=== PATIENT | male | born 1960 | race Caucasian/White ===

== ENCOUNTER → 2016-06-18 | Outpatient (CLI) | payer OTHER ==
[~2016-06-18] MED LIST: ACET-93 PO; ALLO100T PO; ALPR.25T PO; ALPR1T PO; ALPR1TAB7 PO; ALPR2TAB2 PO; BACL10TA PO; CLIN300C3 PO; CLOT15CR4 TP; DEPLIN; DOXY100C2 PO; DOXY100T2 PO; GADOBUTROL 15 MMOL/15 ML (GADAVIST) VIAL IV ONE; HYDR-3720 PO; HYDR-3812 PO; HYDR1TAB PO; KETO-22 PO; LISI-556 PO; LSNP20T PO; MELOXICAM PO; NAPR-243 PO; NAPR220T66 PO; ONDA8TAB13 PO; ORPH100T PO; OXYC-197 PO; PRD20T PO; PREG100C PO; PREG150C PO; ROPI1TAB2 PO; TEMA15CA PO; TIZA2TAB3 PO; TIZA4CAP6 PO; TRAM50TA2 PO; TRAZ-28 PO; ZLP10T; ZLP10T PO; [UNRECOGNIZED DRUG - OTHER] PO
[2016-06-18 13:16] LABS: BLOOD UREA NITROGEN 6 MG/DL (7-18); BUN/CREATININE RATIO 6; CREATININE SERUM 1.05 MG/DL (0.60-1.30); GFR ESTIMATED > 60
--- NOTE | 2016-06-18 15:30 | Diagnostic Imaging Report ---
PROCEDURE: MRI lumbar spine with and without contrast. TECHNIQUE: A multiplanar/multisequence MRI of the lumbar spine was performed with and without contrast. INDICATION: Back pain. COMPARISON: 10/27/2012. FINDINGS: Since the previous exam, posterior and interbody fusion at L2-L3 has been performed with bipedicular screws. The alignment across the fusion is anatomic and the previous severe central canal stenosis has resolved. The left neural foramen is widely patent. The right appears mildly narrowed but much improved from the prior exam. There is a broad-based posterior right lateral disc protrusion, seen best in the axial images. Disc material extends about 2.6 mm beyond the endplate margin but again results in only mild canal stenosis and did not appreciably impinge upon or contact the exiting L2 nerve. There is no fluid collection. Above the level of fusion, the L1-L2 level shows disc desiccation, loss of disc stature, mild endplate osteophytes, and circumferential disc bulge with mild canal stenosis and no substantial foraminal narrowing. This level is stable. L3-L4: Thickening of the ligamentum flavum and facet arthrosis show mild progression from the prior exam. Mild circumferential disc bulge and endplate osteophytes are noted. The constellation of findings in conjunction with dorsal epidural fat result in a mild to moderate degree of canal narrowing, increased from the prior exam, with mild to moderate left and mild right neural foraminal narrowing increased. L4-L5: Buckled thickened ligamentum flavum, facet arthrosis, bulging disc material, and endplate osteophytes result in severe central canal stenosis, mildly increased from the prior exam, with moderate right and mild left neuroforaminal stenoses, slightly increased. L5-S1: Bulging disc material and endplate osteophytes do not result in a significant degree of foraminal narrowing; however, disc material impinges upon the left greater than right descending S1 nerve roots and there is moderate severity central canal stenosis. IMPRESSION: 1. There are significant favorable changes across the post operative L2-L3 level showing resolution of the previous severe stenosis of the central canal and marked improvements in right neuroforaminal stenosis. No fluid collection or adverse development. Anatomic alignment across the fusion. 2. Multilevel spondylosis, facet arthrosis, and ligamentum flavum thickening show mild progression from the prior exam with multilevel stenoses of canal, neural foramina, and lateral recesses of varying degrees of severity as listed level by level above. 3. No abnormal enhancement. No findings to suggest lumbar involvement by fracture, infection, or neoplasm. Dictated by: Dictated on workstation # [id number]
== END ==
LOC: RAD 12:39
PROVIDERS: ATTEND Physician Assistant
DX: M48.07 Spinal stenosis, lumbosacral region (principal); M47.817 Spondylosis without myelopathy or radiculopathy, lumbosacral region
CPT/HCPCS: 36415; 72158; 82565; 84520

== ENCOUNTER 2016-07-15 02:22 | Emergency (ER) | payer OTHER, BC ==
[~2016-07-15] VITALS: Ht 198.1 cm; Wt 104.3 kg
[~2016-07-15 02:22] MED LIST changes: -GADOBUTROL 15 MMOL/15 ML (GADAVIST) VIAL IV ONE
[2016-07-15] MEDS ORDERED: fentaNYL INJECTION 100 MCG/2 ML AMP IM STA (02:35)
--- NOTE | 2016-07-15 02:35 | ED Fall/Injury ---
General Chief Complaint: Trauma-Non Activation Stated Complaint: FALL HEAD INJ Source: patient, family Exam Limitations: no limitations History of Present Illness Time seen by provider: 02:28 Initial Comments Patient presents acutely by private conveyance after a fall in his bathroom or getting up to go to the bathroom. He struck his head against the vanity on the right occiput and landed on his right knee laterally where he now has an abrasion. He feels his right knee is a little swollen and painful and difficult to walk on. He denies loss of consciousness or time and remembers the whole fall. He denies dysuria or burning. He states that he has had multiple falls and has multiple abrasions and contusions in various stages of healing on his knees and upper extremities consistent with his story. He states his doctor, Dr. FIELDS, was working him up outpatient and concerned about too much water on the brain. States he was postictal have a CT scan set up outpatient. No fever , rash, malaise, nausea, vomiting. He is having pain however and uses chronic opiates hydrocodone for his right knee pain. Allergies and Home Medications Allergies Coded Allergies: Iodinated Contrast Media - Oral and (Verified Allergy, Unknown, 02/10/07) Uncoded Allergies: IV DYE (Allergy, Mild, 02/07/07) Home Medications Allopurinol 100 Mg Tablet, 100 MG PO HS, (Reported) Alprazolam 1 Mg Tablet, 1 MG PO TID, (Reported) Lisinopril 5 Mg Tablet, 5 MG PO DAILY, (Reported) Oxycodone HCl/Acetaminophen 1 Each Tablet, 1 EACH PO Q4H, #60 Prescribed by: MED PORTER on 12/06/151915 Pregabalin 100 Mg Capsule, 100 MG PO HS, (Reported) Ropinirole HCl 1 Mg Tablet, 1 MG PO HS PRN for PAIN, (Reported) Temazepam 15 Mg Capsule, 15 MG PO HS, (Reported) Tizanidine HCl 2 Mg Tablet, 2 MG PO TID, (Reported) Tramadol HCl 50 Mg Tablet, 100 MG PO TID, (Reported) Trazodone HCl 50 Mg Tablet, 50 MG PO HS, (Reported) Constitutional: No chills, No diaphoresis, No dizziness, No fever Eyes: Denies Blindness, Denies Blurred Vision, Denies Drainage Ears, Nose, Mouth, Throat: denies ear pain, denies ear discharge Respiratory: No cough, No short of breath Cardiovascular: No chest pain, No edema Gastrointestinal: No abdominal pain, No constipation, No diarrhea Genitourinary: No dysuria, No frequency Musculoskeletal: see HPI, No back pain, joint pain Skin: lesions (abrasion head and right knee), No pruritus, No rash Past Bosivkw-Zmrmep-Ztelwy Hx Patient Social History Alcohol Use: Regular Use Recreational Drug Use: No Type Used: Electronic/Vapor Recent Foreign Travel: No Contact w/Someone Who Travel: No Recent Hopitalizations: No Immunizations Up To Date Tetanus Booster (TDap): Less than 5yrs Date of Pneumonia Vaccine: Jan 30, 2012 Date of Influenza Vaccine: Dec 29, 2014 Seasonal Allergies Seasonal Allergies: No Surgeries HX Surgeries: Yes (PARTIAL Thyroidectomy, Torn meniscus left side, BACK SURGERY X2, ) Surgeries: Orthopedic, Thyroidectomy Respiratory Hx Respiratory Disorders: Yes Respiratory Disorders: Pneumonia Cardiovascular Hx Cardiac Disorders: Yes Cardiac Disorders: Hypertension Neurological Hx Neurological Disorders: Yes ("possible pressure on brain causing dizziness") Reproductive System Hx Reproductive Disorders: No Sexually Transmitted Disease: No HIV/AIDS: No Genitourinary Hx Genitourinary Disorders: No Gastrointestinal Hx Gastrointestinal Disorders: No Musculoskeletal Hx Musculoskeletal Disorders: Yes (SCIATICA, RESTLESS LEG SYNDROME, OSTEOARTHRITIS) Musculoskeletal Disorders: Degenerate Disk Disease, Arthritis, Chronic Back Pain, Gout Endocrine Hx Endocrine Disorders: No HEENT HX ENT Disorders: Yes (GLASSES) Loss of Vision: Bilateral Hearing Impairment: Denies Cancer Hx Cancer: No Psychosocial Hx Psychiatric Problems: Yes Behavioral Health Disorders: Sleep Difficulties, Anxiety Integumentary HX Skin/Integumentary Disorder: No Blood Transfusions Hx Blood Disorders: No Adverse Reaction to a Blood Tr: No (N/A) Family Medical History Significant Family History: No Pertinent Family Hx Family Medial History: CANCER 19 FATHER 19 MOTHER Physical Exam Vital Signs Vital Sign - Last 12Hours 07/15/16 02:26 Temp 99.0 Pulse 99 Resp 18 B/P (MAP) 116/70 Pulse Ox 96 O2 Delivery Room Air Capillary Refill : General Appearance: WD/WN, no apparent distress HEENT: PERRL/EOMI, normal ENT inspection, other (mild abrasion to right occiput ) Neck: non-tender, normal inspection Cardiovascular: normal peripheral pulses, regular rate, rhythm, no edema Respiratory: chest non-tender, lungs clear Peripheral Pulses: 3+ Dorsalis Pedis (R), 3+ Left Dors-Pedis (L), 3+ Radial Pulses (R), 3+ Radial Pulses (L) Gastrointestinal: normal bowel sounds, non tender, soft Back: normal inspection, no CVA tenderness, no vertebral tenderness Extremities: normal range of motion, normal capillary refill, other (right knee abrasion, superficial, hemostatic with mild effusion compared to left. 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 as tested, no motor/sensory deficits, alert, oriented x 3 Skin: normal color, warm/dry Lymphatic: no adenopathy Progress/Results/Core Measures Results/Orders My Orders Orders - SHEILA GRAJEDA Ct Head Wo (07/15/16 02:35) Knee, Right, 3 Views (07/15/16 02:35) Fentanyl Injection (Sublimaze Injection (07/15/16 02:35) Vital Signs/I&O Vital Sign - Last 12Hours 07/15/16 07/15/16 02:26 03:56 Temp 99.0 Pulse 99 78 Resp 18 18 B/P (MAP) 116/70 Pulse Ox 96 96 O2 Delivery Room Air Progress Note : Time: 03:45 Progress Note Patient presents with a fall and although he does not have any acute neurologic symptoms he's had a history of falls and the family is highly concerned about normal pressure hydrocephalus and insistent upon a CT scan tonight. CT scan was unremarkable on review by stat read myself. He is having no dysuria so a urinalysis will be necessary or helpful. As he has no acute injuries that need to address tonight we'll allow him to go home. Diagnostic Imaging Diagonstic Imaging: Xray Plain Films/CT/US/NM/MRI: knee (Right) Comments No acute process noted. Reviewed: Reviewed [place] Study, Reviewed by Me Diagonstic Imaging: CT Plain Films/CT/US/NM/MRI: head Comments No acute intracranial process noted. Read no acute intracranial hemorrhage or calvarial fracture, incidental findings of chronic and involutional changes noted. Reviewed: Reviewed [place] Study, Reviewed by Me Departure Impression Impression: Primary Impression: Fall Qualified Codes: W19.XXXA - Unspecified fall, initial encounter Disposition: HOME, SELF-CARE Condition: Stable Departure-Patient Inst. Decision time for Depature: 03:45 Referrals: IBRAHIMA FIELDS DO (PCP/Family) Primary Care Physician Patient Instructions: Concussion, Adult (DC) Add. Discharge Instructions: After a fall and blow to the head the patient should be observed over the next few days for any concerning features of a concussion which would include things like nausea, vomiting, disorientation, personality changes. If these occur or there is concern for concussion bring these concerns up to your primary care physician or if they become acutely worrisome bring him back to the ER. Be careful using opiates as they increase your risk of falls. Drink plenty of fluids. Use a well lit corridor at night to get up to the bathroom. Follow-up with her primary care physician in the next week or 2. All discharge instructions reviewed with patient and/or family. Voiced understanding. Copy Copies To 1: IBRAHIMA FIELDS TITUS J Jul 15, 2016 02:35
[2016-07-15 03:56] VITALS: BP 109/68
--- NOTE | 2016-07-15 06:54 | Diagnostic Imaging Report ---
PROCEDURE: CT head without contrast. TECHNIQUE: Multiple contiguous axial images were obtained through the brain without the use of intravenous contrast. INDICATION: Fall, right-sided head pain. No priors. FINDINGS: There is no hemorrhage, hydrocephalus, edema, mass, mass effect, abnormal extra-axial fluid collection or calvarial fracture deformity. No hemo-sinus. No evidence for focal or generalized edema. IMPRESSION: No hemorrhage fracture deformity or acute/posttraumatic sequelae identified. Agree with preliminary. Dictated by: Dictated on workstation # [id number]
--- NOTE | 2016-07-15 07:39 | Diagnostic Imaging Report ---
INDICATION: Pain. Study compared 12/15/2015. FINDINGS: Soft tissue swelling anteriorly in the suprapatellar knee joint effusion present. Prior soft tissue caryn have been removed. Some soft tissue ossifications about the knee medially probably ossifications along the MCL ligament suggestive of prior ligamentous injury. No lucencies adjacent to the hardware. No osseous or hardware fracture. IMPRESSION: Swelling and joint effusion with probable calcifications of the MCL owing to its prior injury. No acute bony abnormality. Dictated by: Dictated on workstation # [id number]
== END 2016-07-15 03:56 | disposition home or self-care (01) ==
LOC: EDUNIT# 02:22 → ER 02:25
DX: S80.211A Abrasion, right knee, initial encounter (principal); S09.90XA Unspecified injury of head, initial encounter; M25.461 Effusion, right knee; R29.6 Repeated falls; Z79.899 Other long term (current) drug therapy; W18.09XA Striking against other object with subsequent fall, initial encounter; Y92.003 Bedroom of unspecified non-institutional (private) residence as the place of occurrence of the external cause; Y99.8 Other external cause status
CPT/HCPCS: 70450; 73562; 96372; 99282

== ENCOUNTER → 2016-09-30 | Outpatient (CLI) | payer OTHER, BC ==
--- NOTE | 2016-09-30 11:39 | Diagnostic Imaging Report ---
PROCEDURE: US Thyroid. TECHNIQUE: Multiple real-time grayscale images were obtained of the thyroid in various projections. INDICATION: Abnormal thyroid function tests, previous right thyroidectomy. COMPARISON: None. DISCUSSION: The right thyroid gland is surgically absent. No abnormal mass or fluid within the right thyroidectomy bed. Simple appearing cysts within the left thyroid gland measures 5 mm, statistically benign. The left thyroid gland is mildly enlarged measuring 5.0 x 2.1 x 2.3 cm. No solid nodule is identified on the left. No abnormal adjacent lymph nodes identified. IMPRESSION: 1. Status post right thyroidectomy. 2. Mild enlargement of the left thyroid gland. No suspicious solid nodule identified. Dictated by: Dictated on workstation # [id number]
== END ==
LOC: RAD 10:53
PROVIDERS: ATTEND Family Medicine
DX: E89.0 Postprocedural hypothyroidism (principal); E07.89 Other specified disorders of thyroid; R94.6 Abnormal results of thyroid function studies
CPT/HCPCS: 76536

== ENCOUNTER → 2017-05-09 | Outpatient (CLI) | payer OTHER, BC ==
[~2017-05-09] MED LIST changes: +ACHD5005 PO; -HYDR-3812 PO
--- NOTE | 2017-05-09 14:27 | Diagnostic Imaging Report ---
INDICATION: Chest congestion. PA and lateral chest obtained at 01:02 p.m. and compared to 12/15/2015. Heart is normal in size. Mediastinal silhouette is unremarkable. The lungs show no focal infiltrate. There is no pneumothorax or pleural fluid. There is a stable calcified granuloma in the left mid lung. IMPRESSION: Stable calcified granuloma in left mid lung. No focal infiltrate, pneumothorax, or pleural fluid. Dictated by: Dictated on workstation # [id number]
== END ==
LOC: RAD 12:32
PROVIDERS: ATTEND Family Medicine
DX: J84.10 Pulmonary fibrosis, unspecified (principal)
CPT/HCPCS: 71046

== ENCOUNTER → 2017-10-23 | Outpatient (RCR) | payer OTHER, BC ==
[~2017-10-23] MED LIST changes: +TRAZ-189 PO; -TRAZ-28 PO
== END | disposition home or self-care (01) ==
PROVIDERS: ATTEND Physician Assistant
DX: M50.00 Cervical disc disorder with myelopathy, unspecified cervical region (principal)

== ENCOUNTER 2017-12-25 14:10 | Outpatient (RCR) | payer OTHER, BC ==
[~2017-12-25 14:10] MED LIST changes: -OXYC-197 PO; +OXYC1TAB87 PO
== END 2018-01-01 15:18 | disposition home or self-care (01) ==
PROVIDERS: ATTEND Physician Assistant
DX: M50.00 Cervical disc disorder with myelopathy, unspecified cervical region (principal)

== ENCOUNTER 2018-01-28 13:45 | Outpatient (RCR) | payer OTHER, BC | END 2018-02-25 09:44 | disposition home or self-care (01) | PROVIDERS: ATTEND Physician Assistant | DX: M50.00 Cervical disc disorder with myelopathy, unspecified cervical region (principal) ==

== ENCOUNTER → 2018-07-09 | Outpatient (CLI) | payer MEDICARE, OTHER ==
--- NOTE | 2018-07-09 17:09 | Diagnostic Imaging Report ---
INDICATION: Claudication. FINDINGS: Ankle-brachial index on the right in the posterior tibial artery is 1.14 and in the dorsalis pedis artery is 1.17. Ankle-brachial index on the left in the posterior tibial artery is 1.13 and in the dorsalis pedis is 1.05. IMPRESSION: Normal bilateral ankle-brachial indices. Dictated by: Dictated on workstation # [id number]
== END ==
LOC: RAD 09:00
PROVIDERS: ATTEND Neurological Surgery
DX: I73.9 Peripheral vascular disease, unspecified (principal)
CPT/HCPCS: 93922

== ENCOUNTER → 2018-10-02 | Outpatient (CLI) | payer MEDICARE, OTHER ==
[~2018-10-02] MED LIST changes: -TRAZ-189 PO; +TRAZ-222 PO
--- NOTE | 2018-10-02 15:06 | Diagnostic Imaging Report ---
PROCEDURE: US carotid duplex, bilateral. TECHNIQUE: Multiple real-time grayscale images were obtained over the carotid arteries in various projections, bilaterally. Additional spectral analysis and color Doppler duplex images were also obtained. INDICATION: Dizziness and fainting There is some atherosclerotic plaque present at the carotid bifurcations. There is no alteration of the waveforms or velocities. Both vertebral arteries are patent with antegrade flow. Impression: There's mild atherosclerotic change in both carotid bifurcations but no hemodynamically significant stenosis. Parameters based on the consensus panel Wilson-Scale and Doppler ultrasound criteria published January 2003, Radiology, Volume 229. DOPPLER (peak systolic velocity M/S Right Left CCA 1.18 1.21 ICA Proximal 0.77 0.90 ICA Mid .83 .86 ICA Distal .83 1.0 RATIO 0.7 0.8 ECA .96 1.26 VERT 0.41 0.46 Dictated by: Dictated on workstation # [id number]
== END ==
LOC: RAD 12:35
PROVIDERS: ATTEND Nurse Practitioner Family
DX: I65.23 Occlusion and stenosis of bilateral carotid arteries (principal)
CPT/HCPCS: 93880

== ENCOUNTER → 2018-10-13 | Outpatient (CLI) | payer MEDICARE, OTHER ==
[~2018-10-13] MED LIST changes: -TIZA2TAB3 PO; +TIZA2TAB4 PO
[2018-10-13 12:23] LABS: ALBUMIN 4.5 GM/DL (3.2-4.5); BUN/CREATININE RATIO 14; CALCIUM 10.2 MG/DL (8.5-10.1); CARBON DIOXIDE 25 MMOL/L (21-32); CHLORIDE 101 MMOL/L (98-107); CREATININE SERUM 1.18 MG/DL (0.60-1.30); GFR ESTIMATED > 60; GLUCOSE 97 MG/DL (70-105); PHOSPHORUS 2.3 MG/DL (2.3-4.7); POTASSIUM 3.5 MMOL/L (3.6-5.0); SODIUM 138 MMOL/L (135-145)
== END ==
LOC: RAD 11:47
PROVIDERS: ATTEND Nurse Practitioner
DX: I70.1 Atherosclerosis of renal artery (principal)
CPT/HCPCS: 36415; 80069

== ENCOUNTER 2018-10-14 08:06 | Outpatient (RCR) | payer MEDICARE, OTHER ==
[2018-10-14] MEDS ORDERED: IOHEXOL 350 MG/ML 100 ML (OMNIPAQUE 350) VIAL IV ONE (08:45)
[2018-10-14] MEDS ORDERED: HOLD METFORMIN - RECEIVED CONTRAST 20 ML VIAL IV SCH (08:45)
[2018-10-14] MEDS ORDERED: NS 100 ML (IVPB) BAG IV ONE (08:45)
--- NOTE | 2018-10-14 11:10 | Diagnostic Imaging Report ---
PROCEDURE: CT angiography of the head and CT angiography of the neck with and without contrast. TECHNIQUE: Contiguous noncontrast images were obtained from the skull base through the vertex. After intravenous contrast administration, helical CT angiography of the neck was performed. 75 mL of Omnipaque 350 was administered via IV. Source data was reformatted into multiple MIP projections. Delayed post contrast acquisition was also obtained. Auto Exposure Controls were utilized during the CT exam to meet ALARA standards for radiation dose reduction. INDICATION: Lightheadedness. COMPARISON: CT head on 07/15/2016. FINDINGS: CTA Neck: The visualized portions of the aortic arch demonstrate no evidence of aneurysm or dissection. There is conventional branching pattern of the great vessels of the aorta. The brachiocephalic artery is normal in course and caliber. The right and left common carotid origins are unremarkable. The origin of the left subclavian artery is patent. The common carotid arteries and internal carotid arteries demonstrate a tortuous course. There is calcified atherosclerotic plaque in the bilateral carotid bulbs and proximal internal carotid arteries without flow-limiting stenosis. No evidence of dissection in the carotid systems. The external carotid arteries are patent and unremarkable. The vertebral arteries are codominant. The origin of the right vertebral artery is seen and is unremarkable. The origin of the left vertebral artery is seen and is unremarkable. There is no focal stenosis seen within the neck. There is no dissection. The vertebral arteries are well visualized to up to the level of the basilar artery. The osseous structures of the cervical spine are unremarkable. Anterior fusion is seen at C5-C6. Included views through the lung apices demonstrate no focal consolidation. CTA brain: The terminal ICAs are unremarkable. No stenosis is seen in the bilateral anterior, middle, and posterior cerebral arteries. No evidence of aneurysm the [place]. In the posterior circulation, both of the vertebral arteries demonstrate normal opacification. The vertebral arteries are codominant. Both the right and left PICA arteries are identified. The basilar artery is normal in course and caliber. The terminal branch vessels including the superior cerebellar arteries unremarkable. IMPRESSION: 1. No stenosis or aneurysm in the [place]. 2. No stenosis or dissection the bilateral carotid and vertebral arteries. Dictated by: Dictated on workstation # [id number]
[2018-12-31] MEDS ORDERED: CELE-63 PO ×2 (09:01)
[2018-12-31] MEDS ORDERED: PROP80CA4 PO ×2 (09:01)
[2018-12-31] MEDS ORDERED: PREG150C PO ×2 (09:01)
[2018-12-31] MEDS ORDERED: AMIT75TA2 PO ×2 (09:01)
[2018-12-31] MEDS ORDERED: DULO60CA59 PO ×2 (09:01)
[2018-12-31] MEDS ORDERED: OXYC-471 PO ×2 (09:01)
[2018-12-31] MEDS ORDERED: LEVO50TA6 PO ×2 (09:01)
[2018-12-31] MEDS ORDERED: ONDA4TAB10 PO ×2 (09:01)
[2018-12-31] MEDS ORDERED: DOCU-143 PO ×2 (09:05)
[2018-12-31] MEDS ORDERED: CHOL10007 PO ×2 (09:05)
[2018-12-31] MEDS ORDERED: CYAN-41 PO ×2 (09:05)
[2019-01-01] MEDS ORDERED: ENOX40DI8 SC ×2 (09:37)
[2019-01-06] MEDS ORDERED: APIX2.5T PO (11:46)
[2019-01-06] MEDS ORDERED: OXYC-471 PO (11:46)
[2019-01-06] MEDS ORDERED: PROP20TA5 PO (11:46)
== END 2019-01-12 | disposition home or self-care (01) ==
LOC: RAD 08:06
PROVIDERS: ATTEND Nurse Practitioner
DX: I70.1 Atherosclerosis of renal artery (principal); R55 Syncope and collapse; R42 Dizziness and giddiness
CPT/HCPCS: 70496; 70498; 93225; 93226

== ENCOUNTER 2018-12-04 12:27 | Outpatient (CLI) | payer MEDICARE, OTHER ==
[~2018-12-04] VITALS: Ht 198.1 cm; Wt 111.3 kg
[2018-12-04] MEDS ORDERED: ONDANSETRON 4 MG/2 ML (SDV) Z0FRAN IV ONE (12:45)
[2018-12-04] MEDS ORDERED: NS IV 1000 ML 1,000 ML IV NR (12:45)
[2018-12-04] MEDS ORDERED: cefTRIAXone 1,000 MG/SWFI 10 ML IV PUSH IV ONE ×2 (12:45)
[2018-12-04 13:55] VITALS: BP 131/77
== END 2018-12-04 13:55 | disposition home or self-care (01) ==
LOC: SDC 12:27
PROVIDERS: ATTEND Nurse Practitioner Family
DX: E86.0 Dehydration (principal)
CPT/HCPCS: 96374; 96375

== ENCOUNTER 2018-12-31 02:18 | Observation (INO) | payer MEDICARE, OTHER ==
[2018-12-31] VITALS (18 sets, daily range): BP systolic 97–140; BP diastolic 43–80
[~2018-12-31] VITALS: Ht 197 cm; Wt 129.0 kg
[2018-12-31] MEDS ORDERED: NS IV 1000 ML 1,000 ML ONE (02:27)
[2018-12-31 02:39] LABS: BASOPHILS % (AUTO) 0 % (0-10); EOSINOPHILS # (AUTO) 0.4 10^3/uL (0.0-0.3); EOSINOPHILS % (AUTO) 3 % (0-10); HEMATOCRIT 39 % (40-54); HEMOGLOBIN 12.9 G/DL (13.3-17.7); LYMPHOCYTES # (AUTO) 3.5 X 10^3 (1.0-4.0); LYMPHOCYTES % (AUTO) 30 % (12-44); MEAN CORPUSCULAR HEMOGLOBIN 32 PG (25-34); MEAN CORPUSCULAR HGB CONC 33 G/DL (32-36); MEAN CORPUSCULAR VOLUME 97 FL (80-99); MONOCYTES # (AUTO) 1.4 X 10^3 (0.0-1.0); MONOCYTES % (AUTO) 12 % (0-12); NEUTROPHILS # (AUTO) 6.4 X 10^3 (1.8-7.8); NEUTROPHILS % (AUTO) 54 % (42-75); PLATELET COUNT 314 10^3/uL (130-400); RED CELL DISTRIBUTION WIDTH 12.8 % (10.0-14.5); WHITE BLOOD COUNT 11.7 10^3/uL (4.3-11.0)
[2018-12-31 02:53] LABS: ALANINE AMINOTRANSFERASE 23 U/L (0-55); ALBUMIN 3.7 GM/DL (3.2-4.5); ALKALINE PHOSPHATASE 135 U/L (40-136); BILIRUBIN,TOTAL 0.2 MG/DL (0.1-1.0); BUN/CREATININE RATIO 10; CALCIUM 9.3 MG/DL (8.5-10.1); CARBON DIOXIDE 24 MMOL/L (21-32); CHLORIDE 104 MMOL/L (98-107); CREATININE SERUM 1.05 MG/DL (0.60-1.30); GFR ESTIMATED > 60; GLUCOSE 113 MG/DL (70-105); MAGNESIUM 2.1 MG/DL (1.6-2.4); POTASSIUM 4.2 MMOL/L (3.6-5.0); SODIUM 139 MMOL/L (135-145); TOTAL PROTEIN 6.6 GM/DL (6.4-8.2)
[2018-12-31 03:06] LABS: BACTERIA,URINE TRACE /HPF; BILIRUBIN,URINE NEGATIVE (NEGATIVE); CLARITY,URINE CLEAR; COLOR,URINE YELLOW; GLUCOSE, URINE (UA) NEGATIVE (NEGATIVE); KETONES,URINE NEGATIVE (NEGATIVE); LEUKOCYTE ESTERASE ,URINE NEGATIVE (NEGATIVE); NITRITE,URINE NEGATIVE (NEGATIVE); PH,URINE 7 (5-9); PROTEIN,URINE NEGATIVE (NEGATIVE); UROBILINOGEN,URINE NORMAL (NORMAL)
[2018-12-31 03:07] LABS: HYALINE CASTS, URINE 0-2 /LPF
[2018-12-31 03:51] LABS: FREE T4 (FREE THYROXINE) 0.89 NG/DL (0.70-1.48)
[2018-12-31] MEDS ORDERED: NS IV 1000 ML 1,000 ML IV SCH (03:53)
[2018-12-31] MEDS ORDERED: LACTATED RINGERS 1,000 ML IV ONE ×2 (04:52→05:46)
--- NOTE | 2018-12-31 05:28 | ED General ---
General Chief Complaint: Trauma-Non Activation Stated Complaint: FALL, ANKLE DEFORMITY Nursing Triage Note: SEE TRAUMA TRIAGE NOTE. Nursing Sepsis Screen: No Definite Risk Source of Information: Patient, EMS, Family, Old Records Exam Limitations: No Limitations History of Present Illness Date Seen by Provider: Dec 31, 2018 Time Seen by Provider: 02:20 Initial Comments This 58-year-old gentleman presents to the emergency room via EMS after having a fall in his home. He got up in the night to go to the restroom. He then fell. He believes he had a syncopal episode. He does not particularly recall any prodrome prior to that. He states he does have a history of syncope and labile blood pressures. He states he has had a workup by Dr. Cavanaugh for this in the past and that he is being referred to a local boat motor mechanic, possibly Dr. Gresham. Patient has a painful right ankle with disfigurement. EMS applied a splint and gave fentanyl 100 g. Systolic blood pressure was in the 120s for EMS but he is hypotensive on arrival. He denies any fever or feeling ill recently, although he did require some recent IV fluids and completed a course of doxycycline empirically for suspected infection of unknown source. Patient denies any misuse of his medications. He denies any drug or alcohol use. He is afebrile. Speech was slurred upon arrival but EMS reports there was no slurred speech prior to fentanyl. Allergies and Home Medications Allergies Coded Allergies: Iodinated Contrast Media (Verified Allergy, Unknown, 02/10/07) Uncoded Allergies: IV DYE (Allergy, Mild, 02/07/07) Home Medications Allopurinol 100 Mg Tablet, 100 MG PO HS, (Reported) Alprazolam 1 Mg Tablet, 1 MG PO TID, (Reported) Lisinopril 5 Mg Tablet, 5 MG PO DAILY, (Reported) Oxycodone HCl/Acetaminophen 1 Each Tablet, 1-2 EACH PO Q4H PRN for PAIN-MODERATE TO SEVERE Prescribed by: SALENA PACHECO on 02/03/17 1014 Prednisone 20 Mg Tab, 20 MG PO BID Prescribed by: SALENA PACHECO on 02/03/17 1014 Pregabalin 100 Mg Capsule, 100 MG PO HS, (Reported) Ropinirole HCl 1 Mg Tablet, 1 MG PO HS PRN for PAIN, (Reported) Temazepam 15 Mg Capsule, 15 MG PO HS, (Reported) Tizanidine HCl 2 Mg Tablet, 2 MG PO TID, (Reported) Tramadol HCl 50 Mg Tablet, 100 MG PO TID, (Reported) Trazodone HCl 50 Mg Tablet, 50 MG PO HS, (Reported) Patient Home Medication List Home Medication List Reviewed: Yes Review of Systems Review of Systems Constitutional: no symptoms reported EENTM: no symptoms reported Respiratory: no symptoms reported Cardiovascular: see HPI Gastrointestinal: no symptoms reported Genitourinary: no symptoms reported Musculoskeletal: see HPI Skin: no symptoms reported Psychiatric/Neurological: See HPI Hematologic/Lymphatic: No Symptoms Reported Immunological/Allergic: no symptoms reported Past Nufczdm-Gkuhvb-Ubfqrp Hx Past Med/Social Hx: Reviewed and Corrections made Patient Social History Alcohol Use: Denies Use Number of Drinks Today: AA Alcohol Beverage of Choice: Beer Recreational Drug Use: No Type Used: Electronic/Vapor Recent Foreign Travel: No Contact w/Someone Who Travel: No Recent Infectious Disease Expo: No Recent Hopitalizations: No Physical Abuse: No Sexual Abuse: No Mistreated: No Fear: No Immunizations Up To Date Tetanus Booster (TDap): Less than 5yrs Date of Pneumonia Vaccine: Jan 30, 2012 Date of Influenza Vaccine: Dec 29, 2014 Seasonal Allergies Seasonal Allergies: No Past Medical History Surgeries: Yes (PARTIAL Thyroidectomy, Torn meniscus left side, BACK SURGERY X2, ) Orthopedic, Thyroidectomy Respiratory: Yes Pneumonia Cardiac: Yes Hypertension, Syncope Neurological: Yes ("possible pressure on brain causing dizziness", tremors) Reproductive Disorders: No Sexually Transmitted Disease: No HIV/AIDS: No Gastrointestinal: No Musculoskeletal: Yes (SCIATICA, RESTLESS LEG SYNDROME, OSTEOARTHRITIS) Degenerate Disk Disease, Arthritis, Chronic Back Pain, Gout Endocrine: No Loss of Vision: Bilateral Hearing Impairment: Denies Cancer: No Psychosocial: Yes Sleep Difficulties, Anxiety Integumentary: No Blood Disorders: No Adverse Reaction/Blood Tranf: No (N/A) Family Medical History CANCER 19 FATHER 19 MOTHER No Pertinent Family Hx Physical Exam Vital Signs Vital Signs - First Documented 12/31/18 02:19 Temp 37.4 Pulse 83 Resp 18 B/P (MAP) 73/53 (60) Pulse Ox 92 O2 Delivery Nasal Cannula O2 Flow Rate 2.00 Capillary Refill : Less Than 3 Seconds Height, Weight, BMI Height: 6'6.00" Weight: 245lbs. 6.0oz. 111.309153sl; 33.00 BMI Method:Stated General Appearance: No Apparent Distress, WD/WN HEENT: PERRL/EOMI, Normal ENT Inspection, Other (oropharynx quite dry) Neck: Normal Inspection Respiratory: Lungs Clear, Normal Breath Sounds, No Accessory Muscle Use, No Respiratory Distress Cardiovascular: Regular Rate, Rhythm, No Edema, No Murmur, Normal Peripheral Pulses Gastrointestinal: Non Tender, Soft Extremity: Normal Capillary Refill, Other (right ankle externally rotated and swollen. Movement and sensation of the toes intact. Capillary refill about 3 seconds.) Neurologic/Psychiatric: Alert, No Motor/Sensory Deficits, creative arts therapist II-XII Norm as Tested, Other (somnolent, mild slurring of speech) Skin: Normal Color, Warm/Dry Focused Exam Lactate Level 12/31/18 05:15: Lactic Acid Level 2.26*H Lactic Acid Level Laboratory Tests Test 12/31/18 05:15 Lactic Acid Level 2.26 MMOL/L (0.50-2.00) *H Progress/Results/Core Measures Suspected Sepsis Recent Fever Within 48 Hours: No Infection Criteria Present: None New/Unexplained Altered Menta: No Sepsis Screen: No Definite Risk SIRS Temperature: Pulse: 83 Respiratory Rate: 18 Laboratory Tests 12/31/18 02:19: White Blood Count 11.7H Blood Pressure 73 /53 Mean: 60 12/31/18 05:15: Lactic Acid Level 2.26*H Laboratory Tests 12/31/18 02:19: Creatinine 1.05, Platelet Count 314, Total Bilirubin 0.2 Results/Orders Lab Results Laboratory Tests Test 12/31/18 02:19 12/31/18 02:45 12/31/18 05:15 Range/Units White Blood Count 11.7 H 4.3-11.0 10^3/uL Red Blood Count 3.99 L 4.35-5.85 10^6/uL Hemoglobin 12.9 L 13.3-17.7 G/DL Hematocrit 39 L 40-54 % Mean Corpuscular Volume 97 80-99 FL Mean Corpuscular Hemoglobin 32 25-34 PG Mean Corpuscular Hemoglobin Concent 33 32-36 G/DL Red Cell Distribution Width 12.8 10.0-14.5 % Platelet Count 314 130-400 10^3/uL Mean Platelet Volume 10.0 7.4-10.4 FL Neutrophils (%) (Auto) 54 42-75 % Lymphocytes (%) (Auto) 30 12-44 % Monocytes (%) (Auto) 12 0-12 % Eosinophils (%) (Auto) 3 0-10 % Basophils (%) (Auto) 0 0-10 % Neutrophils # (Auto) 6.4 1.8-7.8 X 10^3 Lymphocytes # (Auto) 3.5 1.0-4.0 X 10^3 Monocytes # (Auto) 1.4 H 0.0-1.0 X 10^3 Eosinophils # (Auto) 0.4 H 0.0-0.3 10^3/uL Basophils # (Auto) 0.0 0.0-0.1 10^3/uL Sodium Level 139 135-145 MMOL/L Potassium Level 4.2 3.6-5.0 MMOL/L Chloride Level 104 98-107 MMOL/L Carbon Dioxide Level 24 21-32 MMOL/L Anion Gap 11 5-14 MMOL/L Blood Urea Nitrogen 11 7-18 MG/DL Creatinine 1.05 0.60-1.30 MG/DL Estimat Glomerular Filtration Rate > 60 BUN/Creatinine Ratio 10 Glucose Level 113 H 70-105 MG/DL Calcium Level 9.3 8.5-10.1 MG/DL Corrected Calcium 9.5 8.5-10.1 MG/DL Magnesium Level 2.1 1.6-2.4 MG/DL Total Bilirubin 0.2 0.1-1.0 MG/DL Aspartate Amino Transf (AST/SGOT) 20 5-34 U/L Alanine Aminotransferase (ALT/SGPT) 23 0-55 U/L Alkaline Phosphatase 135 40-136 U/L Troponin I < 0.028 <0.028 NG/ML C-Reactive Protein High Sensitivity 1.40 H 0.00-0.50 MG/DL Total Protein 6.6 6.4-8.2 GM/DL Albumin 3.7 3.2-4.5 GM/DL Thyroid Stimulating Hormone (TSH) 2.70 0.35-4.94 UIU/ML Free Thyroxine 0.89 0.70-1.48 NG/DL Urine Color YELLOW Urine Clarity CLEAR Urine pH 7 5-9 Urine Specific [place] 1.020 1.016-1.022 Urine Protein NEGATIVE NEGATIVE Urine Glucose (UA) NEGATIVE NEGATIVE Urine Ketones NEGATIVE NEGATIVE Urine Nitrite NEGATIVE NEGATIVE Urine Bilirubin NEGATIVE NEGATIVE Urine Urobilinogen NORMAL NORMAL MG/DL Urine Leukocyte Esterase NEGATIVE NEGATIVE Urine RBC (Auto) NEGATIVE NEGATIVE Urine RBC NONE /HPF Urine WBC NONE /HPF Urine Squamous Epithelial Cells 2-5 /HPF Urine Crystals NONE /LPF Urine Bacteria TRACE /HPF Urine Casts PRESENT /LPF Urine Hyaline Casts 0-2 H /LPF Urine Mucus NEGATIVE /LPF Urine Culture Indicated NO Urine Opiates Screen NEGATIVE NEGATIVE Urine Oxycodone Screen POSITIVE H NEGATIVE Urine Methadone Screen NEGATIVE NEGATIVE Urine Propoxyphene Screen NEGATIVE NEGATIVE Urine Barbiturates Screen NEGATIVE NEGATIVE Ur Tricyclic Antidepressants Screen POSITIVE H NEGATIVE Urine Phencyclidine Screen NEGATIVE NEGATIVE Urine Amphetamines Screen NEGATIVE NEGATIVE Urine Methamphetamines Screen NEGATIVE NEGATIVE Urine Benzodiazepines Screen POSITIVE H NEGATIVE Urine Cocaine Screen NEGATIVE NEGATIVE Urine Cannabinoids Screen NEGATIVE NEGATIVE Lactic Acid Level 2.26 *H 0.50-2.00 MMOL/L My Orders Orders - SALENA LE MD Ns Iv 1000 Ml (Sodium Chloride 0.9%) (12/31/18 02:27) Cbc With Automated Diff (12/31/18 02:33) Comprehensive Metabolic Panel (12/31/18 02:33) Ua Culture If Indicated (12/31/18 02:33) Ed Iv/Invasive Line Start (12/31/18 02:33) Ekg Tracing (12/31/18 02:33) Monitor-Rhythm Ecg Trace Only (12/31/18 02:33) Ankle, Right, 3 Views (12/31/18 02:33) Magnesium (12/31/18 02:33) Troponin I (12/31/18 02:33) Thyroid Stimulating Hormone (12/31/18 03:04) Free T4 (Free Thyroxine) (12/31/18 03:04) Ns Iv 1000 Ml (Sodium Chloride 0.9%) (12/31/18 03:53) Hs C Reactive Protein (12/31/18 04:51) Chest 1 View, Ap/Pa Only (12/31/18 04:51) Ed Iv/Invasive Line Start (12/31/18 04:52) Lactated Ringers (Lr 1000 Ml Iv Solution (12/31/18 04:52) Blood Culture (12/31/18 05:13) Lactic Acid Analyzer (12/31/18 05:13) Ceftriaxone For Iv Use (Rocephin For I (12/31/18 05:30) Lactated Ringers (Lr 1000 Ml Iv Solution (12/31/18 05:46) O2 (12/31/18 05:58) Medications Given in ED Current Medications Medications Dose Ordered Sig/Phu Route Start Time Stop Time Status Last Admin Dose Admin Ceftriaxone Sodium 1000 mg/ Sterile Water 10 ml @ 200 mls/hr ONCE ONCE IV 12/31/18 05:30 12/31/18 05:32 DC 12/31/18 05:30 200 MLS/HR Lactated Ringer's 1,000 ml @ 0 mls/hr Q0M ONCE IV 12/31/18 04:52 12/31/18 04:54 DC 12/31/18 04:59 999 MLS/HR Lactated Ringer's 1,000 ml @ 0 mls/hr Q0M ONCE IV 12/31/18 05:46 12/31/18 05:47 DC 12/31/18 05:51 999 MLS/HR Sodium Chloride 1,000 ml @ ud STK-MED ONCE .ROUTE 12/31/18 02:27 12/31/18 02:28 DC 12/31/18 02:46 999 MLS/HR Vital Signs/I&O 12/31/18 12/31/18 12/31/18 12/31/18 02:19 02:30 05:47 06:14 Temp 37.4 37.4 37.4 Pulse 83 68 62 Resp 18 18 18 B/P (MAP) 73/53 (60) 83/53 82/56 (63) Pulse Ox 92 100 98 O2 Delivery Nasal Cannula Nasal Cannula Nasal Cannula Room Air O2 Flow Rate 2.00 2.00 2.00 12/31/18 12/31/18 06:33 06:43 Pulse 64 Resp 16 B/P (MAP) 100/62 (75) Pulse Ox 95 99 O2 Delivery Room Air Room Air Capillary Refill : Less Than 3 Seconds Blood Pressure Mean: 60 Progress Note #1: Time: 05:34 Progress Note Patient was noted to be hypotensive after EMS gave fentanyl. After 2 L of IV fluid, hypotension did not resolve. A third liter is now infusing and patient is still hypotensive. He remains alert. Workup has been relatively unr emarkable. He has no source of infection identified. Blood cultures and lactic acid are being obtained as a precaution and Rocephin being started for empiric treatment of possible infection. Levo fed well be initiated shortly if blood pressure does not resolve after the third liter of IV fluid. Case was discussed with Dr. Mcpherson who is agreeable to admission. The fibula fracture was treated with a Steplite boot. Inpatient orthopedic consultation is not necessary for this injury. Outpatient follow-up is appropriate. Progress Note #2: Time: 05:49 Progress Note Last systolic blood pressure was 89 after the third liter of IV fluids. I discussed the case with Dr. Lee who recommended another liter fluid. If pressors need to be started in the ICU, that will be managed there. Patient is ready for transfer to the ICU. Blood cultures and lactic acid have been drawn and Rocephin has been given. The etiology for his hypotension could be medication effect. ECG Initial ECG Impression Date: Dec 31, 2018 Initial ECG Impression Time: 02:59 Initial ECG Rate: 74 Initial ECG Rhythm: Normal Sinus Initial ECG Intervals: Normal Initial ECG Impression: Normal Comment Normal sinus rhythm with no ST elevation or depression. No abnormal intervals or axis deviation. Diagnostic Imaging Diagonstic Imaging: Xray Plain Films/CT/US/NM/MRI: ankle Comments X-ray of the right ankle demonstrates a nondisplaced distal right fibular fracture with no significant displacement. Report not yet available. Diagonstic Imaging: Xray Plain Films/CT/US/NM/MRI: chest Comments Chest x-ray viewed by me and report not yet available. Compared with prior. No adverse changes noted. Departure Communication (Admissions) Time/Spoke to Admitting Phy: 05:25 Dr. Mcpherson Time/Spoke to Consulting Phy: 05:46 Dr. Lee Impression Primary Impression: Hypotension Qualified Codes: I95.9 - Hypotension, unspecified Additional Impressions: Syncope Qualified Codes: R55 - Syncope and collapse Fall on same level Qualified Codes: W18.30XA - Fall on same level, unspecified, initial encounter Fracture of distal end of right fibula Qualified Codes: S82.831A - Other fracture of upper and lower end of right fibula, initial encounter for closed fracture Disposition: ADMITTED INPATIENT Condition: Improved Admissions Decision to Admit Reason: Admit from ER (General) Decision to Admit/Date: Dec 31, 2018 Time/Decision to Admit Time: 05:20 Departure-Patient Inst. Referrals: IBRAHIMA MCPHERSON DO (PCP/Family) Primary Care Physician SALENA LE MD Dec 31, 2018 05:28
[2018-12-31] MEDS ORDERED: cefTRIAXone FOR IV USE 1,000 MG in WATER (STERILE) FOR INJECTION 10 ML IV ONE (05:30)
--- NOTE | 2018-12-31 05:52 | Diagnostic Imaging Report ---
CHEST 1 VIEW, AP/PA ONLY Indication: Fall Comparison: None available. Findings: Stable calcified left midlung zone granuloma. A few scattered linear opacities in lung bases favor subsegmental atelectasis. Remainder the visualized lungs are clear. No pleural effusion or pneumothorax. Normal cardiomediastinal silhouette. Impression: 1. No acute cardiopulmonary process by portable radiography. Dictated by: Dictated on workstation # [id number]
--- NOTE | 2018-12-31 05:54 | NUR ---
02 SAT 100% ON 2L VIA NC. O2 DC'D AT THIS TIME IN TRIAL RUN PER DR. LE VERBAL ORDERS.
[2018-12-31 06:01] LABS: AMPHETAMINE SCREEN, URINE NEGATIVE (NEGATIVE); BARBITURATE SCREEN URINE NEGATIVE (NEGATIVE); BENZODIAZEPINES SCREEN URINE POSITIVE (NEGATIVE); CANNABINOID SCREEN, URINE NEGATIVE (NEGATIVE); COCAINE SCREEN URINE NEGATIVE (NEGATIVE); METHADONE STAT NEGATIVE (NEGATIVE); METHAMPHETAMINE SCREEN URINE S NEGATIVE (NEGATIVE); OPIATE SCREEN URINE NEGATIVE (NEGATIVE); OXYCODONE STAT POSITIVE (NEGATIVE); PROPOXYPHENE STAT NEGATIVE (NEGATIVE); TRICYCLIC ANTIDEPRESSANTS SCRE POSITIVE (NEGATIVE)
--- NOTE | 2018-12-31 06:15 | NUR ---
DR. LE NOTIFIED OF BP'S FROM TIME OF ARRIVAL. PT ALERT AND ORIENTED X4 AT ALL TIMES DURING ER STAY. DR. LE; EFRAIN, NICOLAST; NICOLAS BABCOCKT; AND THIS EQUIPMENT OPERATOR/LABORER/RN AT BEDSIDE MONITORING PT FREQUENTLY. AT BEDSIDE. NO DISTRESS NOTED. ORDERS FOR IVF APPROPRIATE PER DR. LE.
[2018-12-31] MEDS ORDERED: CATHETER FLUSH 10 ML SYR IV PRN (06:30)
[2018-12-31] MEDS ORDERED: ONDANSETRON 4 MG/2 ML (SDV) Z0FRAN IV PRN (06:30)
--- NOTE | 2018-12-31 06:30 | Diagnostic Imaging Report ---
INDICATION: Ankle pain. COMPARISON: None available. TECHNIQUE: 3 nonweightbearing views of right ankle were obtained. FINDINGS: There is an acute simple oblique fractures of the distal fibula located at the level of the tibiotalar joint (trans-syndesmotic). This has approximately 2 mm of posterior and lateral displacement of the distal fracture fragment. Potential thin sliver of avulsion from the tip of the medial malleolus. Potential posterior malleolar fracture. No osteochondral lesion of the talar dome. IMPRESSION: 1. Acute, minimally displaced fracture of the distal fibula with potential avulsion of the medial malleolus. 2. Potential posterior malleolar fracture fragment. 3. Consider CT to more completely evaluate the posterior malleolus. Dictated by: Dictated on workstation # [id number]
--- NOTE | 2018-12-31 07:03 | Pulmonary Consultation ---
History of Present Illness History of Present Illness Date of Consultation 12/31/18 06:57 Time Seen by Provider: 06:57 Date of Admission History of Present Illness 58yo presented to ED secondary to s/p fall with possible syncope while at home while ambulating to restroom. Pt has had falls in the past. No prior syncope. Upon EMS arrival pt had an obvious right ankle fracture. EMS place ankle splint and gave 100ug of Fentanyl. While in the ED pt was hypotensive. He received 3 liters of IVF and is currently on his 4th liter. No f/ns/c. He denies any drug or alcohol use. Allergies and Home Medications Allergies Coded Allergies: Iodinated Contrast Media (Verified Allergy, Unknown, 02/10/07) Uncoded Allergies: IV DYE (Allergy, Mild, 02/07/07) Home Medications Allopurinol 100 Mg Tablet, 100 MG PO HS, (Reported) Amitriptyline HCl 75 Mg Tablet, 75 MG PO HS, (Reported) Celecoxib 200 Mg Capsule, 200 MG PO BID, (Reported) Cholecalciferol (Vitamin D3) 1,000 Unit Capsule, 1,000 UNIT PO DAILY, (Reported) Cyanocobalamin (Vitamin B-12) 1,000 Mcg Tablet, 1,000 MCG PO DAILY, (Reported) Docusate Sodium 100 Mg Capsule, 100-200 MG PO BID PRN for CONSTIPATION-1ST LINE, (Reported) Duloxetine HCl 60 Mg Capsule.dr, 60 MG PO HS, (Reported) Levothyroxine Sodium 50 Mcg Tablet, 50 MCG PO DAILY, (Reported) Ondansetron HCl 4 Mg Tablet, 4 MG PO Q4H PRN for NAUSEA/VOMITING-1ST LINE, (Reported) Oxycodone HCl/Acetaminophen 1 Each Tablet, 1 TAB PO Q6H PRN for PAIN-MODERATE, (Reported) Pregabalin 150 Mg Capsule, 150 MG PO BID, (Reported) Propranolol HCl 80 Mg Cap.sa.24h, 80 MG PO HS, (Reported) Tizanidine HCl 2 Mg Tablet, 2 MG PO TID PRN for MUSCLE SPASMS, (Reported) Past Dzmvzfy-Mdodgz-Ofyliq Hx Past Med/Social Hx: Reviewed and Corrections made Patient Social History Alcohol Use: Denies Use Number of Drinks Today: AA Alcohol Beverage of Choice: Beer Recreational Drug Use: No Type Used: Electronic/Vapor Recent Foreign Travel: No Contact w/Someone Who Travel: No Recent Infectious Disease Expo: No Recent Hopitalizations: No Physical Abuse: No Sexual Abuse: No Mistreated: No Fear: No Immunizations Up To Date Tetanus Booster (TDap): Less than 5yrs Date of Pneumonia Vaccine: Jan 30, 2012 Date of Influenza Vaccine: Dec 29, 2014 Seasonal Allergies Seasonal Allergies: No Past Medical History Surgeries: Yes (PARTIAL Thyroidectomy, Torn meniscus left side, BACK SURGERY X2, ) Orthopedic, Thyroidectomy Respiratory: Yes Pneumonia Cardiac: Yes Hypertension, Syncope Neurological: Yes ("possible pressure on brain causing dizziness", tremors) Reproductive Disorders: No Sexually Transmitted Disease: No HIV/AIDS: No Gastrointestinal: No Musculoskeletal: Yes (SCIATICA, RESTLESS LEG SYNDROME, OSTEOARTHRITIS) Degenerate Disk Disease, Arthritis, Chronic Back Pain, Gout Endocrine: No Loss of Vision: Bilateral Hearing Impairment: Denies Cancer: No Psychosocial: Yes Sleep Difficulties, Anxiety Integumentary: No Blood Disorders: No Adverse Reaction/Blood Tranf: No (N/A) Family Medical History CANCER 19 FATHER 19 MOTHER No Pertinent Family Hx Review of Systems Time Seen by Provider: 07:12 Constitutional: Weakness, Malaise; No: Fever, Chills, Sweats, Other Eyes: No: Pain, Vision change, Conjunctivae inflammation, Eyelid inflammation, Other, Redness ENT: No: Ear pain, Ear discharge, Nose pain, Nose discharge, Nose congestion, Mouth pain, Mouth swelling, Throat pain, Throat swelling, Other Respiratory: No: Cough, Dry, Shortness of breath, SOB with excertion, Wheezing, Hemoptysis, Pleuritic Pain, Sputum, Wheezing, Other Cardiovascular: No: Chest Pain, Palpitations, Orthopnea, Paroxysmal Noc. Dyspnea, Edema, Lt Headedness, Other Gastrointestinal: No: Nausea, Vomiting, Abdominal Pain, Diarrhea, Constipation, Melena, Hematochezia, Other Sepsis Event Evaluation Height, Weight, BMI Height: 6'6.00" Weight: 245lbs. 6.0oz. 111.833074tr; 33.00 BMI Method:Stated Exam Exam Vital Signs Date Time Temp Pulse Resp B/P (MAP) Pulse Ox O2 Delivery O2 Flow Rate FiO2 12/31/18 06:43 99 Room Air 12/31/18 06:33 64 16 100/62 (75) 95 Room Air 12/31/18 06:14 37.4 62 18 82/56 (63) 98 Room Air 12/31/18 05:47 37.4 68 18 83/53 100 Nasal Cannula 2.00 12/31/18 02:30 Nasal Cannula 2.00 12/31/18 02:19 37.4 83 18 73/53 (60) 92 Nasal Cannula 2.00 I & O 12/31/18 07:00 Intake Total 4010 ml Balance 4010 ml Height & Weight Height: 6'6.00" Weight: 245lbs. 6.0oz. 111.113172bz; 33.00 BMI Method:Stated General Appearance: WD/WN, Anxious, Mild Distress, Obese HEENT: PERRL/EOMI, Normal ENT Inspection, Other (oropharynx quite dry) Neck: Normal Inspection Respiratory: Lungs Clear, Normal Breath Sounds, No Accessory Muscle Use, No Respiratory Distress Cardiovascular: Regular Rate, Rhythm, No Edema, No Murmur, Normal Peripheral Pulses Capillary Refill: Less Than 3 Seconds Extremity: Normal Capillary Refill, Other (right ankle externally rotated and swollen. Movement and sensation of the toes intact. Capillary refill about 3 seconds.) Neurologic/Psychiatric: Alert, No Motor/Sensory Deficits, hardness tester II-XII Norm as Tested, Other (somnolent, mild slurring of speech) Skin: Normal Color, Warm/Dry Results Lab Laboratory Tests 12/31/18 02:19 Assessment/Plan Assessment/Plan S/p fall with fracture of right Fibula -Pain control -Consider ortho consultation -PT is on multiple home sedating medications Hypotension -IVF pt is now on 4th liter -Continue to montior Dehydration with metabolic acidosis -IVF -Monitor Leukocyosis/ No fever -CXR clear -UA is negative -Continue to monitor Xray : Acute, minimally displaced fracture of the distal fibula with potential avulsion of the medial malleolus. 2. Potential posterior malleolar fracture fragment. JEREMIE EVANS DO Dec 31, 2018 07:03
[2018-12-31] MEDS ORDERED: HYDROcodone/APAP 7.5 MG/325 MG (LORTAB, LORCET PLUS) TABLET PO PRN (07:15)
[2018-12-31] MEDS: NS IV 1000 ML 1,000 ML IV SCH ×3 (08:59→20:00)
[2018-12-31] MEDS ORDERED: OXYC-471 PO ×2 (09:01)
[2018-12-31] MEDS ORDERED: ONDA4TAB10 PO ×2 (09:01)
[2018-12-31] MEDS ORDERED: DULO60CA59 PO ×2 (09:01)
[2018-12-31] MEDS ORDERED: PROP80CA4 PO ×2 (09:01)
[2018-12-31] MEDS ORDERED: CELE-63 PO ×2 (09:01)
[2018-12-31] MEDS ORDERED: LEVO50TA6 PO ×2 (09:01)
[2018-12-31] MEDS ORDERED: AMIT75TA2 PO ×2 (09:01)
[2018-12-31] MEDS ORDERED: PREG150C PO ×2 (09:01)
[2018-12-31] MEDS ORDERED: CHOL10007 PO ×2 (09:05)
[2018-12-31] MEDS ORDERED: DOCU-143 PO ×2 (09:05)
[2018-12-31] MEDS ORDERED: CYAN-41 PO ×2 (09:05)
--- NOTE | 2018-12-31 09:06 | NUR ---
WENT OVER THE EXT MED HX WITH THE PATIENT AND HE VERIFIED HOW HE TAKES HIS MEDICATIONS. HE ALSO TAKES THE FOLLOWING OTC: VITAMIN B12 VITAMIN D COLACE PRN
[2018-12-31 09:40] LABS: ABG BASE EXCESS 2.2 MMOL/L (-2.5-2.5); ABG OXYGEN SATURATION 97 % (94-100); ABG PCO2 49 MMHG (35-45); ABG PH 7.36 (7.37-7.43); ABG PO2 86 MMHG (79-93); ABG TCO2 28.8 MMOL/L (21.0-31.0)
[2018-12-31 09:41] LABS: ALLENS TEST POSITIVE; PATIENT TEMP 36.4; VENTILATOR NO
--- NOTE | 2018-12-31 10:50 | NUR ---
Pastoral care visit.
[2018-12-31] MEDS ORDERED: DOCUSATE SODIUM 100 MG (COLACE) CAP PO PRN (12:15)
[2018-12-31] MEDS ORDERED: NON-FORMULARY MEDICATION 1 EA EA (Ondansetron HCl 4 MG) PO PRN (12:15)
[2018-12-31] MEDS ORDERED: ONDANSETRON 4 MG (ZOFRAN) ORAL DISSOLVE TAB PO PRN (12:30)
--- NOTE | 2018-12-31 13:06 | Consultation - Ortho ---
Consult - Ortho Subjective Date of Exam 12/31/18 Chief Complaint Right ankle fracture HPI/Events since last exam Mr Bernabe is a 58-year-old white male who fell early this morning injuring his right ankle. He denies any previous injury to the right ankle but states he has had some balance issues since his neck and back surgery. He has altered sensation as well and his lower extremities and states he's just not quite sure what position his foot is in when he is walking or standing. He was seen in the emergency room early this morning and x-rays showed a fracture of his distal fibula and posterior malleolus. He was placed in a cam walker and admitted by Dr. FIELDS for further evaluation and treatment Medical, Surgical History Reviewed and no additions or changes Social History Reviewed and no additions or changes Family History Reviewed and no additions or changes Review of Systems Reviewed and no additions or changes. Allergies: Coded Allergies: Iodinated Contrast Media (Verified Allergy, Unknown, 02/10/07) Uncoded Allergies: IV DYE (Allergy, Mild, 02/07/07) Home Meds Reported Medications Docusate Sodium (Colace) 100 Mg Capsule, 100-200 MG PO BID PRN for CONSTIPATION- 1ST LINE, CAP 12/31/18 Cholecalciferol (Vitamin D3) (Vitamin D3) 1,000 Unit Capsule, 1000 UNIT PO DAILY, CAP 12/31/18 Cyanocobalamin (Vitamin B-12) (Vitamin B-12) 1,000 Mcg Tablet, 1000 MCG PO DAILY, TAB 12/31/18 Duloxetine HCl (Duloxetine HCl) 60 Mg Capsule.dr, 60 MG PO HS, CAP 12/31/18 Oxycodone HCl/Acetaminophen (Oxycodone-Acetaminophen 5-325) 1 Each Tablet, 1 TAB PO Q6H PRN for PAIN-MODERATE, TAB 12/31/18 Celecoxib (Celecoxib) 200 Mg Capsule, 200 MG PO BID, CAP 12/31/18 Ondansetron HCl (Ondansetron HCl) 4 Mg Tablet, 4 MG PO Q4H PRN for NAUSEA/VOMITING-1ST LINE, TAB 12/31/18 Propranolol HCl (Propranolol HCl ER) 80 Mg Cap.sa.24h, 80 MG PO HS, CAP 12/31/18 Pregabalin (Lyrica) 150 Mg Capsule, 150 MG PO BID, CAP 12/31/18 Amitriptyline HCl (Amitriptyline HCl) 75 Mg Tablet, 75 MG PO HS, TAB 12/31/18 Levothyroxine Sodium (Levothyroxine Sodium) 50 Mcg Tablet, 50 MCG PO DAILY, TAB 12/31/18 Allopurinol (Allopurinol) 100 Mg Tablet, 100 MG PO HS, TAB 11/29/15 Tizanidine HCl (Tizanidine HCl) 2 Mg Tablet, 2 MG PO TID PRN for MUSCLE SPASMS, TAB 04/20/15 Discontinued Reported Medications Tramadol HCl (Tramadol HCl) 50 Mg Tablet, 100 MG PO TID 12/06/15 Lisinopril (Lisinopril) 5 Mg Tablet, 5 MG PO DAILY, TAB 11/29/15 Trazodone HCl (Trazodone HCl) 50 Mg Tablet, 50 MG PO HS, TAB 11/29/15 Alprazolam (Alprazolam) 1 Mg Tablet, 1 MG PO TID, TAB 11/29/15 Ropinirole HCl (Ropinirole HCl) 1 Mg Tablet, 1 MG PO HS PRN for PAIN 04/20/15 Temazepam (Temazepam) 15 Mg Capsule, 15 MG PO HS 04/20/15 Pregabalin (Lyrica) 100 Mg Capsule, 100 MG PO HS, CAP 04/20/15 Discontinued Scripts Oxycodone HCl/Acetaminophen (Percocet 5-325 mg Tablet) 1 Each Tablet, 1-2 EACH PO Q4H PRN for PAIN-MODERATE TO SEVERE, #20 TAB Prov:SALENA LE MD 02/03/17 Prednisone (Prednisone) 20 Mg Tab, 20 MG PO BID, #6 TAB Prov:SALENA LE MD 02/03/17 Objective Exam Constitutional: [] HEENT: [] Neck: [] No pain with palpation of the cervical spine. Good motion without pain Cardiovascular: [] Respiratory: [] Gastrointestinal: [] Genitourinary: [] Skin: [] Back/Spine: [] No pain with palpation Extremities: [] Upper extremities without deformity. No pain with full range of motion. No crepitation. Lower extremitieshe has an abrasion right anterior knee with mild pain with palpation but no effusion. No defect in the patella or patella tendon. Previous healed surgical incision from total knee arthroplasty. Mild swelling right ankle with pain over the medial malleolus, distal fibula. No pain over the Achilles. He has altered sensation in his lower extremities which is equal and unchanged from her R to his fall. Good motion both hips without pain. No pain with range of motion left knee. No instability. No ankle pain or swelling on the left. Neurologic: [] Psychiatric: [] Hematologic/lymphatic/immunologic: [] Vital Signs Vital Signs Date Time Temp Pulse Resp B/P (MAP) Pulse Ox O2 Delivery O2 Flow Rate FiO2 12/31/18 12:00 98 20 112/43 (66) 97 Room Air 12/31/18 11:00 65 12 115/69 (84) 97 Room Air 12/31/18 10:00 63 8 116/62 (80) 84 Room Air 12/31/18 09:00 70 8 109/65 (80) 98 Room Air 12/31/18 08:00 98 Room Air 12/31/18 08:00 67 13 99/63 (75) 97 Room Air 12/31/18 07:00 64 11 97/61 (73) 97 Room Air 12/31/18 07:00 79 12/31/18 06:43 99 Room Air 12/31/18 06:33 64 16 100/62 (75) 95 Room Air 12/31/18 06:14 37.4 62 18 82/56 (63) 98 Room Air 12/31/18 05:47 37.4 68 18 83/53 100 Nasal Cannula 2.00 12/31/18 02:30 Nasal Cannula 2.00 12/31/18 02:19 37.4 83 18 73/53 (60) 92 Nasal Cannula 2.00 I & O 12/31/18 07:00 Intake Total 4010 ml Balance 4010 ml Lab Results Laboratory Tests 12/31/18 02:19: White Blood Count 11.7H, Red Blood Count 3.99L, Hemoglobin 12.9L, Hematocrit 39L , Mean Corpuscular Volume 97, Mean Corpuscular Hemoglobin 32, Mean Corpuscular Hemoglobin Concent 33, Red Cell Distribution Width 12.8, Platelet Count 314, Mean Platelet Volume 10.0, Neutrophils (%) (Auto) 54, Lymphocytes (%) (Auto) 30, Monocytes (%) (Auto) 12, Eosinophils (%) (Auto) 3, Basophils (%) (Auto) 0, Neutrophils # (Auto) 6.4, Lymphocytes # (Auto) 3.5, Monocytes # (Auto) 1.4H, Eosinophils # (Auto) 0.4H, Basophils # (Auto) 0.0, Sodium Level 139, Potassium Level 4.2, Chloride Level 104, Carbon Dioxide Level 24, Anion Gap 11, Blood Urea Nitrogen 11, Creatinine 1.05, Estimat Glomerular Filtration Rate > 60, BUN/Creatinine Ratio 10, Glucose Level 113H, Calcium Level 9.3, Corrected Calcium 9.5, Magnesium Level 2.1, Total Bilirubin 0.2, Aspartate Amino Transf (AST/SGOT) 20, Alanine Aminotransferase (ALT/SGPT) 23, Alkaline Phosphatase 135, Troponin I < 0.028, C-Reactive Protein High Sensitivity 1.40H, Total Protein 6.6, Albumin 3.7, Thyroid Stimulating Hormone (TSH) 2.70, Free Thyroxine 0.89 12/31/18 02:45: Urine Color YELLOW, Urine Clarity CLEAR, Urine pH 7, Urine Specific White 1. 020, Urine Protein NEGATIVE, Urine Glucose (UA) NEGATIVE, Urine Ketones NEGATIVE, Urine Nitrite NEGATIVE, Urine Bilirubin NEGATIVE, Urine Urobilinogen NORMAL, Urine Leukocyte Esterase NEGATIVE, Urine RBC (Auto) NEGATIVE, Urine RBC NONE, Urine WBC NONE, Urine Squamous Epithelial Cells 2-5, Urine Crystals NONE, Urine Bacteria TRACE, Urine Casts PRESENT, Urine Hyaline Casts 0-2H, Urine Mucus NEGATIVE, Urine Culture Indicated NO, Urine Opiates Screen NEGATIVE, Urine Oxycodone Screen POSITIVEH, Urine Methadone Screen NEGATIVE, Urine Propoxyphene Screen NEGATIVE, Urine Barbiturates Screen NEGATIVE, Ur Tricyclic Antidepressants Screen POSITIVEH, Urine Phencyclidine Screen NEGATIVE, Urine Amphetamines Screen NEGATIVE, Urine Methamphetamines Screen NEGATIVE, Urine Benzodiazepines Screen POSITIVEH, Urine Cocaine Screen NEGATIVE, Urine Cannabinoids Screen NEGATIVE 12/31/18 05:15: Lactic Acid Level 2.26*H 12/31/18 07:34: Lactic Acid Level 1.82 12/31/18 09:32: Blood Gas Puncture Site RIGHT RADIAL, Blood Gas Patient Temperature 36.4, Arterial Blood pH 7.36L, Arterial Blood Partial Pressure CO2 49H, Arterial Blood Partial Pressure O2 86, Arterial Blood HCO3 27, Arterial Blood Total CO2 28.8, Arterial Blood Oxygen Saturation 97, Arterial Blood Base Excess 2.2, Jeet Test POSITIVE, Blood Gas Ventilator Setting NO, Blood Gas Inspired Oxygen N/A Imaging X-rays were reviewed of the right ankle which shows a minimally displaced fracture of the right distal fibula. There is no widening of the syndesmosis. The mortise is well maintained with no asymmetry or widening. Minimal small avulsion off the medial malleolus that may or may not be acute. Lateral view shows a small posterior malleolar fracture that's minimally displaced Assessment and Plan Assessment Minimally displaced fracture right ankledistal fibula and posterior malleolus. No instability Problem List Minimally displaced fracture right distal fibula with no instability. Minimally displaced fracture posterior malleolus both of right ankle Plan Continue with CAM walker. Nonweightbearing. The patient states he will be able to get some crutches. He is ambulating with crutches in the past. Continue nonweightbearing. Follow up in approximately 1 week for recheck and repeat x- rays. Continue elevation as needed for pain and swelling Final Diagonsis Minimally displaced fracture right distal fibula and posterior malleolus right ankle Level of the visit: Level 3 DELFIN BARLOW MD Dec 31, 2018 13:06
--- NOTE | 2018-12-31 13:06 | NUR ---
RD ASSESSMENT PMHx: HTN, Gout Current admission: Hypotension; Fracture (right fibula) PT INTERACTION: Pt was awake and pleasant during consult for MST Score. Pt states current appetite as "starving," but had a poor appetite for the past few weeks. Pt states poor appetite started about a month ago, resulting in weight loss of "about 15#". Note unable to determine recent wt hx, per chart review. Pt states no current issues with n/v at this time. Pt states some issues with constipation regularly, and that last BM was two days ago. Pt states following a regular diet at home. Upon visual exam, pt appears well-nourished with BMI of 33.2. ABNORMAL NUTRITION-RELATED LAB VALUES: glu 113 (H); Hgb 12.9 (L); Hct 39 (L) Est. kcal needs: 0438-9428 kcal (15-20 kcal/kg) Est. Pro needs: 129-154 g Pro (1.0-1.2 g Pro/kg) PES STATEMENT: Inadequate oral intake related to loss of appetite as evidenced by pt interview INTERVENTION: Advance diet to regular diet, when medically able. Pt may require bowel regimen is constipation persists. MONITOR/EVALUATE: Diet Advancement; PO Intake; Weight Status; Hydration Status; Lab Values; Stool Output Yadiel Da Silva, MS, RD, LD [phone]
[2018-12-31] MEDS: oxyCODONE/APAP 5/325MG (PERCOCET 5) TABLET PO PRN ×2 (13:29→20:03)
--- NOTE | 2018-12-31 16:20 | Occupational Therapy Eval ---
OT Evaluation-General/PLF Medical Diagnosis Admission Date Dec 31, 2018 at 05:47 Medical Diagnosis: Right ankle fx Onset Date: Dec 30, 2018 Therapy Diagnosis Therapy Diagnosis: Weakness Height/Weight Height (Feet): 6 Height (Inches): 6.00 Weight (Pounds): 245 Weight (Ounces): 6.0 Precautions Precautions/Isolations: Fall Prevention, Standard Precautions Safety Interventions: None Weight Bear Status Weight Bearing Restriction: Non Weight Bearing Location Restriction: R LE WBS (Ord/Comment): Cam boot on Referral Physician: Dr. Mcpherson Referral Reason: Activity Tolerance, Self Care, Evaluation/Treatment, Streng thening/ROM Medical History Pertinent Medical History: Arthritis, HTN Additional Medical History Right knee replacement Current History Pt. and spouse report that he has had constant blood pressure issues for several years. Spouse reports that he has had multiple falls at home. Due to this, he is somewhat sedentary, and has became weaker. He is currently seaking cardiology care to determine cause of blood pressure. Reviewed History: Yes Social History Home: Single Level Current Living Status: Spouse Entry Into Home: Stairs With Railing Steps Into Home: 4 ADL-Prior Level of Function Therapy Quality Codes: 6 Independent with activity with or without an assistive device 5 Patient requires set up or clean up by helper. Patient completes activity by themselves 4 Supervision or touching assist (CGA). [place] provide cues , steadying assist 3 The helper provides less than half the effort to complete the activity 2 The helper provides more than half the effort to complete the activity 1 Dependent. The helper does all the effort to complete an activity 7 Patient refused to complete or attempt activity 9 The patient did not perform the activity before the current illness or injury 88 Not attempted due to Medical conditions or safety concerns ADL PLOF Comments Pt. was previously independent with bathing/dressing. However, due to multiple falls, has become less mobile within his home. Spouse works all day and pt. is at home. Son is present but is asleep during day, as he works at night. Self Care: Needed Some Help Functional Cognition: Independent DME/Equipment: Bath Chair, Grab Bars, Tub/Shower, Toilet/Riser DME/Equipment Comments Spouse reports that pt. has a handicap accessible bathroom, with exception of tub. However, she reports that pt. is able to back up to tub, and sit on chair with legs out of tub. Pt. states that he had a 2 wheeled walker at home, but is unsure of where it is. He has a 4 ww with a seat. OT Current Status Subjective Pt. does not report pain level. Appearance Pt. is agreeable to treatment. Pt. is eager to return home. Mental Status/Objective Patient Orientation: Person, Place, Time, Situation Current Upper Extremity ROM WFL ADL-Treatment Lower Body Dressing (QC): 2 On/Off Footwear (QC): 2 Other Treatments OT/PT co-treated due to pt's fatigue and weakness level with functional tasks. Pt. demonstrates bed mobility with SBA, but transfers with mod assist using walker, and then knee scooter. Pt. attempted to ambulate with walker with emphasis on keeping weight off right LE. Pt. unsteady in stance and unable to let go of walker dynamically very well. Introduced knee scooter, but pt. even more unsteady on this and requires constant assist while attempting to navigate it. Pt. unable to reach feet for LE dressing. Due to observation of inability to stand safely dynamically, it can be assessed that pt. will have difficulty pulling down/up pants during toileting task. Pt. also verbalizes that he has 4 steps at entry. States that he will go up with "backward while sitting." Pt. educated that this is unsafe. OT educated and assessed ADL needs while PT focused on mobility needs. Pt. transferred back to bed with SBA. Spoke with pt. and spouse, as well as nursing regarding further OT care to increase overall independence. Education OT Patient Education: Correct positioning, Modified ADL techniques, Progress toward Goal/Update tx plan, Purpose of tx/functional activities, Reviewed preca utions, Rehab process, Safety issues, Transfer techniques Teaching Recipient: Patient, Family Teaching Methods: Demonstration, Discussion Response to Teaching: Verbalize Understanding, Return Demonstration OT Short Term Goals Short Term Goals Time Frame: Jan 07, 2019 Eating(FIM): 6 Grooming(FIM): 5 Bathing(FIM): 4 Upper Body Dressing(FIM): 5 Lower Body Dressing(FIM): 4 Toileting(FIM): 4 Transfers (B,C,W/C) (FIM): 5 Toilet/Commode Transfer(FIM): 5 Additional Short Term Goals: 1-Demonstrate ADL Tasks, 2-Verbalize Understanding, 3-ImproveStrength/E[place] 1=Demonstrate adherence to instructed precautions during ADL tasks. 2=Patient will verbalize/demonstrate understanding of assistive devices/modifications for ADL. 3=Patient will improve strength/tolerance for activity to enable patient to perform ADL's. OT Prospecting Driller Goals Prospecting Driller Goals Time Frame: Jan 14, 2019 Eating (QC): 6 Oral Hygiene (QC): 6 Shower/Bathe Self (QC): 4 Upper Body Dressing (QC): 6 Lower Body Dressing (QC): 6 On/Off Footwear (QC): 6 Toileting Hygiene (QC): 6 Toilet/Commode Transfer (QC): 6 Additional Goals: 1-Demonstrate ADL Tasks, 2-Verbalize Understanding, 3- ImproveStrength/Eitan 1=Demonstrate adherence to instructed precautions during ADL tasks. 2=Patient will verbalize/demonstrate understanding of assistive devices/modifications for ADL. 3=Patient will improve strength/tolerance for activity to enable patient to perform ADL's. OT Education/Plan Problem List/Assessment Assessment: Decreased Activ Tolerance, Decreased UE Strength, Dependent Transfers, Impaired Funct Balance, Impaired I ADL's, Impaired Self-Care Skills Discharge Recommendations Plan/Recommendations: Continue POC Therapy Discharge Recommendati: Post Acute OT Equpiment Recommendations-D/C: Extended Bath Bench, Hip Kit Target Placement Pt. would benefit from inpt. rehab stay, as he will be alone during day and is unable to care for self at this time. Treatment Plan/Plan of Care Treatment,Training & Education: Yes Patient would benefit from OT for education, treatment and training to promote independence in ADL's, mobility, safety and/or upper extremity function for ADL's. Plan of Care: ADL Retraining, Functional Mobility, UE Funct Exercise/Act Treatment Duration: Jan 14, 2019 Frequency: 5 times per week Estimated Hrs Per Day: .5 hour per day Agreement: Yes Rehab Potential: Good Time/GCodes Start Time: 15:45 Stop Time: 16:10 Total Time Billed (hr/min): 25 Billed Treatment Time 1, MEG (co-treat with PT) JCAK LINDA OT Dec 31, 2018 16:20
--- NOTE | 2018-12-31 16:20 | Physical Therapy Evaluation ---
PT Evaluation-General Medical Diagnosis Admission Date Dec 31, 2018 at 05:47 Medical Diagnosis: hypotension/right ankle fracture Onset Date: Dec 31, 2018 Therapy Diagnosis Therapy Diagnosis: generalized weakness/debility Height/Weight Height (Feet): 6 Height (Inches): 6.00 Weight (Pounds): 245 Weight (Ounces): 6.0 Precautions Precautions/Isolations: Fall Prevention, Standard Precautions Weight Bear Status Right Lower Extremity: Right Non Weight Bearing Left Lower Extremity: Left Full Weight Bearing Referral Physician: [place] Reason for Referral: Evaluation/Treatment Medical History Pertinent Medical History: Arthritis, HTN, Smoking Current History EMS secondary to fall at home due to syncope Reviewed History: Yes Social History Home: Single Level Current Living Status: Spouse Entry Into Home: Stairs With Railing PT Steps Into Home: 4 Prior Prior Level of Function Therapy Quality Codes: 6 Independent with activity with or without an assistive device 5 Patient requires set up or clean up by helper. Patient completes activity by themselves 4 Supervision or touching assist (CGA). [place] provide cues , steadying assist 3 The helper provides less than half the effort to complete the activity 2 The helper provides more than half the effort to complete the activity 1 Dependent. The helper does all the effort to complete an activity 7 Patient refused to complete or attempt activity 9 The patient did not perform the activity before the current illness or injury 88 Not attempted due to Medical conditions or safety concerns Bed Mobility: 6 Transfers (B,C,W/C): 6 Gait: 6 Stairs: 6 Indoor Mobility (Ambulation): Independent Stairs: Independent Prior Devices Use: Other-see list below (cane) Prior Device Use: cane PT Evaluation-Current Subjective Patient reports he wants to go home and states he will be able to "handle" it at home. Spouse present and voices concern. Pain Numeric Pain Scale: 5-Moderate Pain Location: Right Location Body Site: Ankle Pain Description: Stabbing Objective Patient Orientation: Normal For Age Problem Solving: Fair ROM/Strength ROM Lower Extremities right CAM boot/left LE WFL Strength Lower Extremities right LE 3+/5 grossly/left LE 4-/5 grossly Integumentary/Posture Integumentary refer to nursing notes Bowel Incontinence: No Bladder Incontinence: No Posture WFL Neuromuscular (Tone, Coordination, Reflexes) grossly intact Sensory Vision: Wears Glasses Hearing: Functional Sensation Right Lower Extremit: Intact Sensation Left Lower Extremity: Intact Transfers Roll Left to Right (QC): 5 Sit to Lying (QC): 5 Lying to Sitting/Side of Bed(Q: 5 Sit to Stand (QC): 3 Gait Does the Patient Walk?: Yes Mode of Locomotion: Walk Anticipated Mode of Locomotion: Both Distance (FIM): 1=up to 49 ft Walk 10 feet (QC): 3 Walk 50 ft with 2 Turns(QC): 88 Walk 150 ft (QC): 88 Walking 10ft/uneven surface-QC: 88 Distance: 20' x 2 Gait Level of Assist: 3 Gait Persons Needed: 2 Gait Assistive Device: FWW Comments/Gait Description difficulty compliance with NWB right LE/noted inability to safely 'Hop" with FWW due to upper body weakness Stairs 1 Step (curb) (QC): 88 4 Steps (QC): 88 Assistive Device: Walker Balance Sitting Static: Normal Sitting Dynamic: Normal Standing Static: Fair Standing Dynamic: Fair (Fair-) Assessment/Needs 58 y.o. male, will benefit from skilled PT to address functional strength and mobility. From a PT standpoint, patient is not safe to return to home due to limitations in strength bilateral LE and ambulation NWB right LE. CoTreat with OT. This PT recommends ARU, if eligible, to ensure safe return to home with spouse. Rehab Potential: Fair PT Prison Goals Prison Goals PT Prison Goals Time Frame: Jan 16, 2019 Sit to Lying (QC): 6 Lying-Sitting on Side/Bed(QC): 6 Sit to Stand (QC): 6 Roll Left to Right (QC): 6 Chair/[id number]-fq-Bymjk Xfer(QC): 6 Car Transfer (QC): 6 Does the Patient Walk: Yes Distance: 50' Walk 10 feet (QC): 6 Walk 10ft-Uneven Surface(QC): 6 Walk 50ft with 2 Turns (QC): 6 Walk 150 ft (QC): 88 Gait Level of Assist: 6 Gait Assistive Device: FWW # of Steps: 3 1 Step (curb) (QC): 5 4 Steps (QC): 5 12 Steps (QC): 9 Stairs Level Of Assist: 5 Picking up an Object (QC): 5 PT Plan Problem List Problem List: Activity Tolerance, Functional Strength, Safety, Balance, Gait, Transfer, Bed Mobility Treatment/Plan Treatment Plan: Continue Plan of Care Treatment Plan: Bed Mobility, Education, Functional Activity [place], Functional Strength, Gait, Safety, Therapeutic Exercise, Transfers Frequency: 11 times per week Estimated Hrs Per Day: .5 hour per day Patient and/or Family Agrees t: Yes Discharge Recommendations Therapy Discharge Recommendati: Other, See Comments (ARU vs home due to weakness and impaired mobility to safely return to home) Time/GCodes Time In: 1505 Time Out: 1600 Total Billed Treatment Time: 55 Total Billed Treatment 1 visit EVModC 27 min GT x 2 28 min WILBUR VASQUEZ PT Dec 31, 2018 16:20
[2018-12-31] MEDS: CELECOXIB 100 MG (CeleBREX) CAP PO SCH (20:03)
--- NOTE | 2018-12-31 20:22 | History & Physical ---
History of Present Illness History of Present Illness Reason for visit/HPI This is a 58 year old male who presented to the emergency room after getting up at night and having a syncopal episode. He hurt his right ankle and do to the pain and malformation presented to the emergency room for evaluation. He was found to be very hypotensive upon arrival. He was given at least 3 liters of fluids but remained hypotensive. He was found to have a right distal fibular fracture. Do to his ongoing hypotension, it was decided to admit him for ongoing IV fluids and monitoring of his blood pressure. Date of Admission Dec 31, 2018 at 05:47 Date Seen by a Provider: Dec 31, 2018 Time Seen by a Provider: 12:25 I consulted on this patient on 12/31/18 20:15 Attending Physician Michelle Fields DO Admitting Physician Michelle Fields DO Consult Allergies and Home Medications Allergies Coded Allergies: Iodinated Contrast Media (Verified Allergy, Unknown, 02/10/07) Uncoded Allergies: IV DYE (Allergy, Mild, 02/07/07) Home Medications Allopurinol 100 Mg Tablet, 100 MG PO HS, (Reported) Amitriptyline HCl 75 Mg Tablet, 75 MG PO HS, (Reported) Celecoxib 200 Mg Capsule, 200 MG PO BID, (Reported) Cholecalciferol (Vitamin D3) 1,000 Unit Capsule, 1,000 UNIT PO DAILY, (Reported) Cyanocobalamin (Vitamin B-12) 1,000 Mcg Tablet, 1,000 MCG PO DAILY, (Reported) Docusate Sodium 100 Mg Capsule, 100-200 MG PO BID PRN for CONSTIPATION-1ST LINE, (Reported) Duloxetine HCl 60 Mg Capsule.dr, 60 MG PO HS, (Reported) Levothyroxine Sodium 50 Mcg Tablet, 50 MCG PO DAILY, (Reported) Ondansetron HCl 4 Mg Tablet, 4 MG PO Q4H PRN for NAUSEA/VOMITING-1ST LINE, (Reported) Oxycodone HCl/Acetaminophen 1 Each Tablet, 1 TAB PO Q6H PRN for PAIN-MODERATE, (Reported) Pregabalin 150 Mg Capsule, 150 MG PO BID, (Reported) Propranolol HCl 80 Mg Cap.sa.24h, 80 MG PO HS, (Reported) Tizanidine HCl 2 Mg Tablet, 2 MG PO TID PRN for MUSCLE SPASMS, (Reported) Patient Home Medication List Home Medication List Reviewed: Yes Past Vtresgi-Tdpgfq-Eietxr Hx Past Med/Social Hx: Reviewed and Corrections made Patient Social History Marrital Status: Employed/Student: retired Alcohol Use: Denies Use Number of Drinks Today: AA Alcohol Beverage of Choice: Beer Recreational Drug Use: No Type Used: Electronic/Vapor Recent Foreign Travel: No Contact w/other who traveled: No Recent Hopitalizations: No Recent Infectious Disease Expo: No Immunizations Up To Date Tetanus Booster (TDap): Less than 5yrs Date of Pneumonia Vaccine: Jan 30, 2012 Date of Influenza Vaccine: Dec 29, 2014 Seasonal Allergies Seasonal Allergies: No Past Medical History Surgeries: Orthopedic, Thyroidectomy Cardiac: Hypertension, Syncope Reproductive: No Sexually Transmitted Disease: No HIV/AIDS: No Musculoskeletal: Degenerate Disk Disease, Arthritis, Chronic Back Pain, Gout Loss of Vision: Bilateral Hearing Impairment: Denies Psychosocial: Sleep Difficulties, Anxiety History of Blood Disorders: No Adverse Reaction to Blood Arellano: No (N/A) Family History CANCER 19 FATHER 19 MOTHER No Pertinent Family Hx Review of Systems Constitutional: weakness EENTM: No see HPI, No no symptoms reported, No ear discharge, No hearing loss, No ear pain, No blurred vision, No double vision, No eye pain, No tearing, No vision loss, No dental problems, No hoarseness, No mouth pain, No mouth swelling, No epistaxis, No nose congestion, No nose pain, No throat pain, No throat swelling, No other Respiratory: No no symptoms reported, No see HPI, No cough, No dyspnea on exertion, No hemoptysis, No orthopnea, No phlegm, No short of breath, No stridor, No wheezing, No other Cardiovascular: syncope Gastrointestinal: No RUQ, No LUQ, No RLQ, No LLQ, No no symptoms reported, No see HPI, No abdominal pain, No constipation, No diarrhea, No dysphagia, No hematemesis, No heartburn, No jaundice, No loss of appetite, No melena, No nausea, No vomiting, No other Genitourinary: No no symptoms reported, No see HPI, No decreased output, No discharge, No dysuria, No frequency, No hematuria, No hesitancy, No incontinence, No nocturia, No pain, No other Musculoskeletal: back pain, joint pain, joint swelling Skin: No no symptoms reported, No see HPI, No change in color, No change in hair/nails, No dryness, No hx of skin cancer, No lesions, No lumps, No pruritus, No rash, No other Psychiatric/Neurological: Anxiety, Tremors, Weakness Physical Exam Vital Signs Vital Signs - First Documented 12/31/18 02:19 Temp 37.4 Pulse 83 Resp 18 B/P (MAP) 73/53 (60) Pulse Ox 92 O2 Delivery Nasal Cannula O2 Flow Rate 2.00 Capillary Refill : Less Than 3 SecondsLess Than 3 Seconds Height, Weight, BMI Height: 6'6.00" Weight: 245lbs. 6.0oz. [id number]; 33.00 BMI Method:Stated General Appearance: No Apparent Distress Neck: Supple Respiratory: Lungs Clear Cardiovascular: Regular Rate, Rhythm Gastrointestinal: Normal Bowel Sounds, Non Tender, Soft Rectal: Deferred Back: No CVA Tenderness Extremity: Non Tender, No Calf Tenderness, No Pedal Edema, Other (right leg with boot in place) Neurologic/Psychiatric: Alert, Oriented x3 Skin: Warm/Dry Comments Laboratory Tests 12/31/18 02:19: White Blood Count 11.7H, Red Blood Count 3.99L, Hemoglobin 12.9L, Hematocrit 39L , Mean Corpuscular Volume 97, Mean Corpuscular Hemoglobin 32, Mean Corpuscular Hemoglobin Concent 33, Red Cell Distribution Width 12.8, Platelet Count 314, Mean Platelet Volume 10.0, Neutrophils (%) (Auto) 54, Lymphocytes (%) (Auto) 30, Monocytes (%) (Auto) 12, Eosinophils (%) (Auto) 3, Basophils (%) (Auto) 0, Neutrophils # (Auto) 6.4, Lymphocytes # (Auto) 3.5, Monocytes # (Auto) 1.4H, Eosinophils # (Auto) 0.4H, Basophils # (Auto) 0.0, Sodium Level 139, Potassium Level 4.2, Chloride Level 104, Carbon Dioxide Level 24, Anion Gap 11, Blood Urea Nitrogen 11, Creatinine 1.05, Estimat Glomerular Filtration Rate > 60, BUN/Creatinine Ratio 10, Glucose Level 113H, Calcium Level 9.3, Corrected Calcium 9.5, Magnesium Level 2.1, Total Bilirubin 0.2, Aspartate Amino Transf (AST/SGOT) 20, Alanine Aminotransferase (ALT/SGPT) 23, Alkaline Phosphatase 135, Troponin I < 0.028, C-Reactive Protein High Sensitivity 1.40H, Total Protein 6.6, Albumin 3.7, Thyroid Stimulating Hormone (TSH) 2.70, Free Thyroxine 0.89 12/31/18 02:45: Urine Color YELLOW, Urine Clarity CLEAR, Urine pH 7, Urine Specific [place] 1.020, Urine Protein NEGATIVE, Urine Glucose (UA) NEGATIVE, Urine Ketones NEGATIVE, Urine Nitrite NEGATIVE, Urine Bilirubin NEGATIVE, Urine Urobilinogen NORMAL, Urine Leukocyte Esterase NEGATIVE, Urine RBC (Auto) NEGATIVE, Urine RBC NONE, Urine WBC NONE, Urine Squamous Epithelial Cells 2-5, Urine Crystals NONE, Urine Bacteria TRACE, Urine Casts PRESENT, Urine Hyaline Casts 0-2H, Urine Mucus NEGATIVE, Urine Culture Indicated NO, Urine Opiates Screen NEGATIVE, Urine Oxycodone Screen POSITIVEH, Urine Methadone Screen NEGATIVE, Urine Propoxyphene Screen NEGATIVE, Urine Barbiturates Screen NEGATIVE, Ur Tricyclic Antidepressants Screen POSITIVEH, Urine Phencyclidine Screen NEGATIVE, Urine Amphetamines Screen NEGATIVE, Urine Methamphetamines Screen NEGATIVE, Urine Benzodiazepines Screen POSITIVEH, Urine Cocaine Screen NEGATIVE, Urine Cannabinoids Screen NEGATIVE 12/31/18 05:15: Lactic Acid Level 2.26*H 12/31/18 07:34: Lactic Acid Level 1.82 12/31/18 09:32: Blood Gas Puncture Site RIGHT RADIAL, Blood Gas Patient Temperature 36.4, Arterial Blood pH 7.36L, Arterial Blood Partial Pressure CO2 49H, Arterial Blood Partial Pressure O2 86, Arterial Blood HCO3 27, Arterial Blood Total CO2 28.8, Arterial Blood Oxygen Saturation 97, Arterial Blood Base Excess 2.2, Jeet Test POSITIVE, Blood Gas Ventilator Setting NO, Blood Gas Inspired Oxygen N/A Assessment/Plan Assessment and Plan 1. Acute Hypotension--hydrate and monitor BP, hold BP meds and will also DS some of his meds that increase somnolence like lyrica and amitriptyline 2. Acute Right Distal Fibular Fracture--consult ortho and start PT 3. Chronic Pain Syndrome from cervical and lumbar degenerative disc disease--on oxycodone and resumed Admission Diagnosis Admission Status: Observation Clinical Quality Measures DVT/VTE Risk/Contraindication: Risk Factor Score Per Nursin RFS Level Per Nursing on Admit: 4+=Very High MICHELLE FIELDS DO Dec 31, 2018 20:22
[2018-12-31] MEDS ORDERED: ENOXAPARIN 40 MG/0.4 ML (LOVENOX) SYR SC SCH (20:30)
[2018-12-31] MEDS ORDERED: NON-FORMULARY MEDICATION 1 EA EA (Celecoxib 200 MG) PO SCH (21:00)
[2018-12-31] MEDS ORDERED: NON-FORMULARY MEDICATION 1 EA EA (Duloxetine HCl 60 MG) PO SCH (21:00)
[2018-12-31] MEDS ORDERED: DULoxetine 30 MG (CYMBALTA) CAP PO SCH (21:00)
[2018-12-31] MEDS ORDERED: ALLOPURINOL 100 MG (ZYLOPRIM) TAB PO SCH (21:00)
[2018-12-31] MEDS ORDERED: NON-FORMULARY MEDICATION 1 EA EA (Allopurinol 100 MG) PO SCH (21:00)
[2019-01-01] VITALS (8 sets, daily range): BP systolic 128–148; BP diastolic 70–78
[2019-01-01] MEDS: oxyCODONE/APAP 5/325MG (PERCOCET 5) TABLET PO PRN (01:40)
[2019-01-01 03:58] LABS: BASOPHILS % (AUTO) 0 % (0-10); EOSINOPHILS # (AUTO) 0.3 10^3/uL (0.0-0.3); EOSINOPHILS % (AUTO) 3 % (0-10); HEMATOCRIT 35 % (40-54); HEMOGLOBIN 11.7 G/DL (13.3-17.7); LYMPHOCYTES # (AUTO) 2.4 X 10^3 (1.0-4.0); LYMPHOCYTES % (AUTO) 24 % (12-44); MEAN CORPUSCULAR HEMOGLOBIN 32 PG (25-34); MEAN CORPUSCULAR HGB CONC 33 G/DL (32-36); MEAN CORPUSCULAR VOLUME 96 FL (80-99); MEAN PLATELET VOLUME 9.8 FL (7.4-10.4); MONOCYTES # (AUTO) 1.3 X 10^3 (0.0-1.0); MONOCYTES % (AUTO) 13 % (0-12); NEUTROPHILS # (AUTO) 6.1 X 10^3 (1.8-7.8); NEUTROPHILS % (AUTO) 61 % (42-75); PLATELET COUNT 238 10^3/uL (130-400); RED CELL DISTRIBUTION WIDTH 12.9 % (10.0-14.5); WHITE BLOOD COUNT 10.1 10^3/uL (4.3-11.0)
[2019-01-01 04:15] LABS: BUN/CREATININE RATIO 11; CALCIUM 8.7 MG/DL (8.5-10.1); CARBON DIOXIDE 25 MMOL/L (21-32); CHLORIDE 106 MMOL/L (98-107); CREATININE SERUM 0.83 MG/DL (0.60-1.30); GFR ESTIMATED > 60; GLUCOSE 107 MG/DL (70-105); MAGNESIUM 1.9 MG/DL (1.6-2.4); PHOSPHORUS 3.2 MG/DL (2.3-4.7); POTASSIUM 3.7 MMOL/L (3.6-5.0); SODIUM 140 MMOL/L (135-145)
[2019-01-01] MEDS: NS IV 1000 ML 1,000 ML IV SCH (05:21)
--- NOTE | 2019-01-01 06:19 | Pulmonary Progress Note ---
Subjective Time Seen by a Provider: 07:21 Subjective/Events-last exam Pt is doing much better. Sepsis Event Evaluation Height, Weight, BMI Height: 6'6.00" Weight: 245lbs. 6.0oz. 111.075375vr; 33.00 BMI Method:Stated Focused Exam Lactate Level 12/31/18 05:15: Lactic Acid Level 2.26*H 12/31/18 07:34: Lactic Acid Level 1.82 Exam Exam Vital Signs Date Time Temp Pulse Resp B/P (MAP) Pulse Ox O2 Delivery O2 Flow Rate FiO2 01/01/19 04:00 69 15 142/77 (98) 95 Room Air 01/01/19 04:00 98 Room Air 01/01/19 03:32 36.3 01/01/19 03:00 84 14 135/74 (94) 95 Room Air 01/01/19 02:00 79 9 134/70 (91) 95 Room Air 01/01/19 01:00 78 8 148/77 (100) 99 Room Air 01/01/19 01:00 78 01/01/19 00:00 83 22 132/78 (96) 96 Room Air 01/01/19 00:00 98 Room Air 12/31/18 23:00 86 15 139/75 (96) 95 Room Air 12/31/18 22:00 85 9 140/72 (94) 95 Room Air 12/31/18 21:00 84 19 131/69 (89) 94 Room Air 12/31/18 20:18 36.6 12/31/18 20:00 98 Room Air 12/31/18 20:00 87 18 131/80 (97) 98 Room Air 12/31/18 19:00 93 14 131/63 (85) 93 Room Air 12/31/18 19:00 93 12/31/18 18:00 96 17 129/75 (93) 97 Room Air 12/31/18 17:00 87 12 132/65 (87) 96 Room Air 12/31/18 16:15 87 132/59 (83) Room Air 12/31/18 16:00 98 Room Air 12/31/18 15:00 73 14 140/61 (87) 96 Room Air 12/31/18 14:00 76 11 136/72 (93) 97 Room Air 12/31/18 13:00 86 12/31/18 13:00 86 14 140/77 (98) 82 Room Air 12/31/18 12:00 98 Room Air 12/31/18 12:00 98 20 112/43 (66) 97 Room Air 12/31/18 11:00 65 12 115/69 (84) 97 Room Air 12/31/18 10:00 63 8 116/62 (80) 84 Room Air 12/31/18 09:00 70 8 109/65 (80) 98 Room Air 12/31/18 08:00 98 Room Air 12/31/18 08:00 67 13 99/63 (75) 97 Room Air 12/31/18 07:00 64 11 97/61 (73) 97 Room Air 12/31/18 07:00 79 12/31/18 06:43 99 Room Air 12/31/18 06:33 64 16 100/62 (75) 95 Room Air I & O 01/01/19 07:00 Intake Total 2345 ml Output Total 2575 ml Balance -230 ml Height & Weight Height: 6'6.00" Weight: 245lbs. 6.0oz. [id number]; 33.00 BMI Method:Stated General Appearance: No Apparent Distress HEENT: PERRL/EOMI, Normal ENT Inspection Neck: Supple Respiratory: Lungs Clear Cardiovascular: Regular Rate, Rhythm Capillary Refill: Less Than 3 Seconds Extremity: Non Tender, No Calf Tenderness, No Pedal Edema, Other (right leg with boot in place) Neurologic/Psychiatric: Alert, Oriented x3 Skin: Warm/Dry Results Lab Laboratory Tests 12/31/18 02:19 01/01/19 03:30 Assessment/Plan Assessment/Plan S/p fall with fracture of right Fibula -Pain control -Consider ortho consultation -PT is on multiple home sedating medications Hypotension - Resolved -Continue to montior Leukocyosis/ No fever -CXR clear -UA is negative -Continue to monitor PT is doing better. Will transfer to 4th floor and sign off please call with any questions or concerns. JEREMIE EVANS DO Jan 01, 2019 06:19
[2019-01-01] MEDS ORDERED: LEVOTHYROXINE 50 MCG (LEVOTHROID) TAB PO SCH (06:30)
[2019-01-01] MEDS: CELECOXIB 100 MG (CeleBREX) CAP PO SCH (08:23)
[2019-01-01] MEDS ORDERED: KCL 20 MEQ TAB (K-DUR) PO NR (08:45)
[2019-01-01] MEDS ORDERED: KETOROLAC 30 MG/ML VIAL IVP NR (08:45)
[2019-01-01] MEDS ORDERED: FUROSEMIDE 40 MG/4 ML INJ (LASIX) IVP NR (08:45)
[2019-01-01] MEDS ORDERED: VITAMIN D3 1,000 UNITS (CHOLECALCIFEROL) TABLET PO SCH (09:00)
[2019-01-01] MEDS ORDERED: NON-FORMULARY MEDICATION 1 EA EA (Cholecalciferol (Vitamin D3) (Vitamin D3) 1,000 UNIT) PO SCH (09:00)
[2019-01-01] MEDS ORDERED: CYANOCOBALAMIN 1,000 MCG (VITAMIN B-12) TABLET PO SCH (09:00)
[2019-01-01] MEDS ORDERED: ENOX40DI8 SC ×2 (09:37)
--- NOTE | 2019-01-02 08:29 | Discharge Summary ---
Diagnosis/Chief Complaint Date of Admission Dec 31, 2018 at 05:47 Date of Discharge Jan 01, 2019 at 11:15 Discharge Date: Jan 01, 2019 Discharge Diagnosis 1. Syncope with Fall resulting in right distal fibular fracture--plan is to transfer to rehab for strengthening/balance 2. Hypotension--improved after hydration 3. Polypharmacy--will DC some of his more sedating medications while inpatient 4. Hypothyroidism--home dose restarted 5. Chronic Pain for Degenerative Disc Disease of back and right TKR--back on oxycodone for this and control of his fracture pain Reason Hospital Visit This is a 58 year old male who presented to the emergency room after getting up at night and having a syncopal episode. He hurt his right ankle and do to the pain and malformation presented to the emergency room for evaluation. He was found to be very hypotensive upon arrival. He was given at least 3 liters of fl uids but remained hypotensive. He was found to have a right distal fibular fracture. Do to his ongoing hypotension, it was decided to admit him for ongoing IV fluids and monitoring of his blood pressure. Discharge Summary Hospital Course Hospital Course This is a 58 year old male who was brought to the emergency room after he had a syncopal episode with a fall at home. He had pain in his right ankle and was found to have a distal fibular fracture. He was also found to have hypotension. He was admitted to the ICU on IVFs and orthopedics was consulted. The agreed with boot and non weight bearing so PT was consulted. Due to his unsteadiness/weakness and high fall risk a rehab evaluation was done and the patient did qualify for rehab. I also discontinued his nydia and amitriptyline in case these medications had contributed to his fall. He will be transferred to rehab and I will follow him there along with Dr. Casillas. Labs Laboratory Tests 12/31/18 02:19: White Blood Count 11.7H, Red Blood Count 3.99L, Hemoglobin 12.9L, Hematocrit 39L , Monocytes # (Auto) 1.4H, Eosinophils # (Auto) 0.4H, Glucose Level 113H, C- Reactive Protein High Sensitivity 1.40H 12/31/18 02:45: Urine Hyaline Casts 0-2H, Urine Oxycodone Screen POSITIVEH, Ur Tricyclic Antidepressants Screen POSITIVEH, Urine Benzodiazepines Screen POSITIVEH 12/31/18 05:15: Lactic Acid Level 2.26*H 12/31/18 07:34: 12/31/18 09:32: Arterial Blood pH 7.36L, Arterial Blood Partial Pressure CO2 49H 01/01/19 03:30: Red Blood Count 3.68L, Hemoglobin 11.7L, Hematocrit 35L, Monocytes (%) (Auto) 13H, Monocytes # (Auto) 1.3H, Glucose Level 107H Procedures None. Discharge Physical Examination Allergies: Coded Allergies: Iodinated Contrast Media (Verified Allergy, Unknown, 02/10/07) Uncoded Allergies: IV DYE (Allergy, Mild, 02/07/07) Vitals & I&Os Vital Signs Date Time Temp Pulse Resp B/P (MAP) Pulse Ox O2 Delivery O2 Flow Rate FiO2 01/01/19 08:00 98 Room Air 01/01/19 08:00 36.2 79 23 134/72 (92) 12/31/18 05:47 2.00 General Appearance: Alert, Oriented X3, No Acute Distress Cardiovascular: Regular Rate Extremities: No Clubbing, No Cyanosis, No Edema, Other (boot in place) Psych/Mental Status: Mental Status NL Discharge Home Medications Reviewed and agree with Discharge Medication list on patient's Discharge Instruction sheet Instructions to Patient/Family Please see electronic discharge instructions given to patient. Clinical Quality Measures DVT/VTE Risk/Contraindication: Risk Factor Score Per Nursin RFS Level Per Nursing on Admit: 4+=Very High IBRAHIMA FIELDS DO Jan 02, 2019 08:29
== END 2019-01-01 09:32 ==
LOC: EDUNIT# 02:18 → ER 02:20 → ICU 05:47 → UNDOADMOB 05:47 → ICU 06:30 → UNDODISOB 01-01 11:15
PROVIDERS: ADMIT Family Medicine; ATTEND Family Medicine
DX: R55 Syncope and collapse (principal); I95.9 Hypotension, unspecified; S82.831A Other fracture of upper and lower end of right fibula, initial encounter for closed fracture; I10 Essential (primary) hypertension; M19.90 Unspecified osteoarthritis, unspecified site; G25.81 Restless legs syndrome; G89.29 Other chronic pain; M54.30 Sciatica, unspecified side; M10.9 Gout, unspecified; G47.30 Sleep apnea, unspecified; E86.0 Dehydration; E87.2 Acidosis; F41.9 Anxiety disorder, unspecified; W01.0XXA Fall on same level from slipping, tripping and stumbling without subsequent striking against object, initial encounter; Z91.041 Radiographic dye allergy status; Z79.899 Other long term (current) drug therapy; Z79.891 Long term (current) use of opiate analgesic; Z90.89 Acquired absence of other organs; Z80.9 Family history of malignant neoplasm, unspecified
CPT/HCPCS: 36415; 36600; 71045; 73610; 80048; 80053; 80306; 81000; 82805; 83605; 83735; 84100; 84439; 84443; 84484; 85025; 86141; 87040; 93005; 93041; 96361; 96374

== ENCOUNTER 2019-01-01 09:30 | Inpatient (IN) | payer MEDICARE, OTHER ==
[~2019-01-01] VITALS: Ht 198.1 cm; Wt 123.7 kg
[~2019-01-01 09:30] MED LIST changes: +AMIT75TA2 PO; +CELE-63 PO; +CHOL10007 PO; +CYAN-41 PO; +DOCU-143 PO; +DULO60CA59 PO; +LEVO50TA6 PO; +ONDA4TAB10 PO; +OXYC-471 PO; +PROP80CA4 PO
[2019-01-01] MEDS ORDERED: ENOX40DI8 SC (09:37)
--- NOTE | 2019-01-01 11:15 | NUR ---
Jessika Florecita admitted to room 233-1, with an admitting diagnosis of Tibia/Fibula Fracture, on 01/01/19 from ICU via wheelchair, accompanied by Staff and . JESSIKA NAVARRETE introduced to surroundings, call light, bed controls, phone, TV, temperature control, lights, meal times, smoking policy, visitor policy, side rail policy, bathrooms and showers. Patient Rights given to patient in the handbook.JESSIKA NAVARRETE verbalizes understanding that [facility] is not responsible for the loss or damage to any personal effects or valuables that are kept in the patients possession during their hospitalization. The following Patient Care Plans were discussed with the Patient and his : Discharge Planning, Impaired Mobility, Fracture, Fall Risk. JESSIKA NAVARRETE verbalizes understanding of Interdisciplinary Patient Education.
--- NOTE | 2019-01-01 11:59 | Physical Therapy Evaluation ---
PT Evaluation-General Medical Diagnosis Admission Date Jan 01, 2019 at 11:00 Medical Diagnosis: hypotension/right ankle fracture Onset Date: Dec 31, 2018 Therapy Diagnosis Therapy Diagnosis: impaired mobility, strength, endurance Height/Weight Height (Feet): 6 Height (Inches): 6.00 Weight (Pounds): 245 Weight (Ounces): 6.0 Weight Bear Status Right Lower Extremity: Right Non Weight Bearing Referral Physician: Beth Casillas DO Medical History Pertinent Medical History: Arthritis, HTN, Smoking Social History Home: Single Level Current Living Status: Spouse Entry Into Home: Stairs With Railing PT Steps Into Home: 4 Patient has 4 steps up to porch and one more to go into the home. Prior Prior Level of Function Therapy Quality Codes: 6 Independent with activity with or without an assistive device 5 Patient requires set up or clean up by helper. Patient completes activity by themselves 4 Supervision or touching assist (CGA). [place] provide cues , steadying assist 3 The helper provides less than half the effort to complete the activity 2 The helper provides more than half the effort to complete the activity 1 Dependent. The helper does all the effort to complete an activity 7 Patient refused to complete or attempt activity 9 The patient did not perform the activity before the current illness or injury 88 Not attempted due to Medical conditions or safety concerns Bed Mobility: 6 Transfers (B,C,W/C): 6 Gait: 6 Stairs: 6 Indoor Mobility (Ambulation): Independent Stairs: Independent Patient used a cane previously. PT Evaluation-Current Subjective Patient sitting EOB pre tx, agrees to PT, has 6/10 pain in right ankle. Will be co-treating with OT due to poor patient mobility, strength, endurance, balance, poor weight bearing compliance, and the need to coordinate UE and LE during activity. Pt/Family Goals to be independent at home Objective Patient Orientation: Person, Place, Situation boot right side ROM/Strength ROM Lower Extremities WNL, except right ankle not tested Strength Lower Extremities RLE hip flexion 4/5, LLE (hip flexion 4/5, knee flexion 4+/5, knee extension 4+/5, dorsiflexion 4+/5) Sensory Vision: Wears Glasses Hearing: Functional Sensation Right Lower Extremit: Impaired Sensation Left Lower Extremity: Impaired Sensation Lower Extremities Patient has intact light touch sensation but states he has intermittent decreased sensation in his toes both sides. Transfers Roll Left to Right (QC): 6 Sit to Lying (QC): 6 Lying to Sitting/Side of Bed(Q: 6 Sit to Stand (QC): 3 Chair/Gsc-dn-Biwam Xfer(QC): 3 Car Transfer (QC): 3 Patient performs bed mobility with mod I, supine <-> sit mod I, sit <-> stand min assist, transfers min assist, car transfer min assist. Patient needs occasional assist with balance and cues for weight bearing and safety. Gait Does the Patient Walk?: Yes Mode of Locomotion: Both Anticipated Mode of Locomotion: Walk Walk 10 feet (QC): 88 Walk 50 ft with 2 Turns(QC): 88 Walk 150 ft (QC): 88 Walking 10ft/uneven surface-QC: 88 Distance: 5'x3 Gait Level of Assist: 3 Gait Persons Needed: 1 Gait Assistive Device: FWW Comments/Gait Description Patient can ambulate 5' with a rolling walker with min assist. Patient needs assist with balance and cues for weight bearing compliance, he tends to bear weight through his right foot. Patient is not able to hop. Wheelchair Training Does the Pt Use a Wheelchair?: Yes Distance: 50' Wheelchair Level of Assist: 5 Wheel 50 ft with 2 turns (QC): 4 Type of Wheelchair: Manual Stairs 1 Step (curb) (QC): 88 4 Steps (QC): 88 12 Steps (QC): 88 Patient is not able to keep weight off of right foot and hop onto step. Balance Sitting Static: Normal Sitting Dynamic: Normal Standing Static: Fair Standing Dynamic: Poor Picking up an Object (QC): 88 Treatment bathing, dressing, grooming, toilet transfers (min assist) Assessment/Needs Patient has impaired mobility, strength, endurance, balance, difficulty maintaining NWB on right leg. Min assist with transfers. Rehab Potential: Fair PT Short Term Goals Short Term Goals Time Frame: Jan 08, 2019 Gait Distance Comment: 20' Gait Assistive Device: FWW Additional Short Term Goals transfers, CGA, ambulate 20' with a rolling walker with CGA PT Longterm Goals Longterm Goals PT Longterm Goals Time Frame: Jan 22, 2019 Sit to Lying (QC): 6 Lying-Sitting on Side/Bed(QC): 6 Sit to Stand (QC): 4 (SBA) Roll Left to Right (QC): 6 Chair/Bsf-hw-Fpvul Xfer(QC): 4 (SBA) Car Transfer (QC): 4 (SBA) Distance: 50' Walk 10 feet (QC): 4 (SBA) Walk 10ft-Uneven Surface(QC): 4 (SBA) Walk 50ft with 2 Turns (QC): 4 (SBA) Gait Level of Assist: 4 (SBA) Gait Assistive Device: FWW # of Steps: 4 1 Step (curb) (QC): 4 (SBA) 4 Steps (QC): 4 (SBA) Stairs Level Of Assist: 4 (SBA) PT Plan Problem List Problem List: Activity Tolerance, Functional Strength, Safety, Balance, Gait, Transfer, Bed Mobility, ROM Treatment/Plan Treatment Plan: Continue Plan of Care Treatment Plan: Bed Mobility, Concurrent Therapy, Education, Functional Activity [place], Functional Strength, Group Therapy, Gait, Safety, Therapeutic Exercise, Transfers Treatment Duration: Jan 22, 2019 Frequency: At least 5 of 7 days/Wk (IRF) Estimated Hrs Per Day: 1.5 hours per day Patient and/or Family Agrees t: Yes Safety Risks/Education Patient Education: Gait Training, Transfer Techniques, Correct Positioning, W/C Management, Safety Issues Teaching Recipient: Patient Teaching Methods: Demonstration, Discussion Response to Teaching: Reinforcement Needed Discharge Recommendations Plan Patient will perform bed mobility and transfer training, balance and endurance training, functional strengthening, gait training, stair training, and education, to improve functional mobility and independence at home. Therapy Discharge Recommendati: Other, See Comments (home with ) Time/GCodes Time In: 1100 Time Out: 1200 Total Billed Treatment Time: 50 Total Billed Treatment 1 visit EVM 10' FA 40' (only charge FAx2) Co-treated for 40' with OT. PT performed bed mobility and transfer training, WC mobility, ambulation, assist with positioning and safety and balance during bathing and dressing and grooming. OT performed bathing and dressing and grooming and assist with UE positioning and safety cues during mobility. PT eval from [id number]. OT eval from [id number]. Co-treat from [id number] KARO [place] PT Jan 01, 2019 11:59
[2019-01-01] MEDS ORDERED: DOCUSATE SODIUM 100 MG (COLACE) CAP PO PRN (12:45)
[2019-01-01] MEDS ORDERED: NON-FORMULARY MEDICATION 1 EA EA (Tizanidine HCl 2 MG) PO PRN (12:45)
[2019-01-01] MEDS ORDERED: NON-FORMULARY MEDICATION 1 EA EA (Ondansetron HCl 4 MG) PO PRN (12:45)
--- NOTE | 2019-01-01 12:47 | PM&R H&P / Post Admit Assess ---
History of Present Illness HPI/Chief Complaint Chief complaint: Acute tibiafibula fracture nonweightbearing History of present illness: This is a 58-year-old white male with Dr. Mcpherson who has a past medical history of multiple falls in the past maintained on Lyrica and Amitriptyline along with oxycodone who presented to the ER after sustaining a fall when he got up to go to the bathroom. He was found to have significant hypotension requiring aggressive IV fluids noted elevated lactic acid due to volume depletion which has since resolved after supportive care in the ICU. No evidence of any type of bacterial infection causing sepsis noted. He is maintained on oxycodone for chronic pain syndrome and he doesn't really move around too much at home because of the significant falls he has had in the past and continues to have. His of 38 years is at the bedside. 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 Patient is 6 foot 6 so it is imperative to give the patient skills in order to go home to help with transfers and less and the burden on caregivers. Source: patient, RN/MD, old records Exam Limitations: no limitations Date Seen 01/01/19 Time Seen by a Provider: 12:30 Attending Physician Beth Casillas DO PCP Michelle Mcpherson DO Referring Physician Date of Admission Jan 01, 2019 at 11:00 Home Medications & Allergies Home Medications Reviewed patient Home Medication Reconciliation performed by pharmacy medication reconciliations personnel and payroll technician and/or nursing. Patients Allergies have been reviewed. 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 for [employer]) Alcohol Beverage of Choice: Beer Smoking Status: Current Everyday Smoker (uses vapor) Type Used: Electronic/Vapor Recent Hopitalizations: No Immunizations Up To Date Tetanus Booster (TDap): Less than 5yrs Date of Pneumonia Vaccine: Jan 30, 2012 Date of Influenza Vaccine: Dec 29, 2014 Seasonal Allergies Seasonal Allergies: No Past Medical History Surgeries: Orthopedic, Thyroidectomy Cardiac: Hypertension, Syncope Neurological: Neuropathy restless leg syndrome Reproductive: No Sexually Transmitted Disease: No HIV/AIDS: No Musculoskeletal: Degenerate Disk Disease, Arthritis, Chronic Back Pain, Gout Loss of Vision: Bilateral Hearing Impairment: Denies Psychosocial: Sleep Difficulties, Anxiety History of Blood Disorders: No Adverse Reaction to Blood Arellano: No (N/A) Family History CANCER 19 FATHER 19 MOTHER No Pertinent Family Hx Review of Systems Constitutional: see HPI, dizziness, malaise, weakness EENTM: no symptoms reported Respiratory: no symptoms reported Cardiovascular: no symptoms reported Genitourinary: no symptoms reported Musculoskeletal: back pain, joint pain Skin: no symptoms reported Psychiatric/Neurological: No Symptoms Reported All Other Systems Reviewed Negative Unless Noted: Yes Physical Exam Exam Vital Signs Capillary Refill : General Appearance: No Apparent Distress, WD/WN, Chronically ill HEENT: PERRL/EOMI, Normal ENT Inspection, Pharynx Normal, Moist Mucous Membranes Neck: Full Range of Motion, Normal Inspection, Non Tender, Supple Respiratory: Chest Non Tender, Lungs Clear, Normal Breath Sounds, No Accessory Muscle Use, No Respiratory Distress Cardiovascular: Regular Rate, Rhythm, No Edema, No Gallop, No JVD, No Murmur Gastrointestinal: Normal Bowel Sounds, No Organomegaly, No Pulsatile Mass, Non Tender, Soft Back: Normal Inspection, No CVA Tenderness, No Vertebral Tenderness Extremity: Normal Capillary Refill, Normal Inspection, Normal Range of Motion (except right foot in boot and brace), Non Tender, No Calf Tenderness, No Pedal Edema Neurologic/Psychiatric: Alert, Oriented x3, No Motor/Sensory Deficits, 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 Assessment/Plan Assessment and Plan (1) Fracture of distal end of right fibula Status: Acute (2) Restless leg syndrome Status: Chronic (3) Neuropathy Status: Chronic (4) Debility Status: Acute (5) Elevated lactic acid level Status: Acute (6) Hypotension Status: Acute Qualifiers: Hypotension type: unspecified hypotension type Qualified Codes: I95.9 - Hypotension, unspecified (7) Depression Status: Chronic Qualifiers: Depression Type: unspecified Qualified Codes: F32.9 - Major depressive disorder, single episode, unspecified (8) Fall on same level Status: Acute Qualifiers: Encounter type: initial encounter Qualified Codes: W18.30XA - Fall on same level, unspecified, initial encounter (9) Chronic pain Status: Chronic Qualifiers: Chronic pain type: chronic pain syndrome Qualified Codes: G89.4 - Chronic pain syndrome (10) Hypotension Status: Acute Qualifiers: Hypotension type: idiopathic hypotension Qualified Codes: I95.0 - Idiopathic hypotension (11) Lower back pain Status: Chronic (12) Radiculopathy Status: Chronic Qualifiers: Spinal region: unspecified Qualified Codes: M54.10 - Radiculopathy, site unspecified (13) Syncope Status: Acute (14) Status post total right knee replacement Status: Chronic Post Admission Physician Asses Date seen by provider: Jan 01, 2019 Time seen by provider: 12:30 Admisison Dx: (1) Fracture of distal end of right fibula Status: Acute The preadmission screen agrees with the post admission assessment that the patient is a good candidate for inpatient rehabilitation. The patient will have a comprehensive program of inpatient rehabilitation with a goal of maximizing level of functional independence prior to discharge home with . The patient will have PT/OT ninety minutes per day, each discipline, five days a week for gait, strengthening, conditioning, balance, ADLs, any patient/family/caregiver training as necessary. Speech therapy to do cognitive assessment and treat as indicated. Rehabilitation nursing to assist with bowel, bladder, skin, wound care, medication administration, pain management. Ekg Technician to assist with discharge planning, community reentry. SCD's for DVT prophylaxis. He appears to be well motivated to participate in three hours of therapy a day. He should be able to tolerate three hours of therapy a day from a medical standpoint. He should benefit from the three hours of therapy a day. He has a reasonable discharge plan, reasonable discharge rehabilitation goals and a supportive family. He has various comorbidities that need to be closely mo nitored with medications and treatments adjusted on a daily basis as needed. These include: See list Barriers to discharge for this patient who had been independent prior to this are for him to be modified independent to supervision for ADLs and mobility skills prior to discharge home with , so as to lessen the burden of the caregivers. Risks for this patient include: 1. Fall 2. Fracture 3. DVT 4. Pulmonary embolism 5. Wound infection 6. Skin breakdown 7. Contractures 8. Poorly controlled pain 9. Urinary retention 10. UTI 11. Respiratory infection 12. Aspiration Estimated Length of Stay: 7 days Prognosis: Rehab prognosis appears good for goal of discharge home with modified independent to supervision for ADLs and mobility skills. BETH CASILLAS DO Jan 01, 2019 12:47
[2019-01-01] MEDS ORDERED: ONDANSETRON 4 MG (ZOFRAN) ORAL DISSOLVE TAB PO PRN (13:00)
--- NOTE | 2019-01-01 13:01 | Occupational Therapy Eval ---
OT Evaluation-General/PLF Medical Diagnosis Admission Date Jan 01, 2019 at 11:00 Medical Diagnosis: hypotension/right ankle fracture Onset Date: Dec 31, 2018 Therapy Diagnosis Therapy Diagnosis: Decreased functional mobility and ADL Height/Weight Height (Feet): 6 Height (Inches): 6.00 Weight (Pounds): 245 Weight (Ounces): 6.0 Precautions Precautions/Isolations: Fall Prevention, Standard Precautions Safety Interventions: None Weight Bear Status Weight Bearing Restriction: Non Weight Bearing Location Restriction: RT FOOT Referral Physician: Beth Casillas DO Referral Reason: Activity Tolerance, Self Care, Evaluation/Treatment, Stre ngthening/ROM Medical History Pertinent Medical History: Arthritis, HTN, Smoking Additional Medical History arthritis, HTN Current History Per H&P: "History of present illness: This is a 58-year-old white male with Dr. Mcpherson who has a past medical history of multiple falls in the past maintained on Lyrica and Amitriptyline along with oxycodone who presented to the ER after sustaining a fall when he got up to go to the bathroom. He was found to have significant hypotension requiring aggressive IV fluids noted elevated lactic acid due to volume depletion which has since resolved after supportive care in the ICU. No evidence of any type of bacterial infection causing sepsis noted. He is maintained on oxycodone for chronic pain syndrome and he doesn't really move around too much at home because of the significant falls he has had in the past and continues to have. His of 38 years is at the bedside. 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 Patient is 6 foot 6 so it is imperative to give the patient skills in order to go home to help with transfers and less and the burden on caregivers." Reviewed History: Yes Social History Home: Single Level Current Living Status: Spouse Entry Into Home: Stairs With Railing Steps Into Home: 4 ADL-Prior Level of Function Therapy Quality Codes: 6 Independent with activity with or without an assistive device 5 Patient requires set up or clean up by helper. Patient completes activity by themselves 4 Supervision or touching assist (CGA). [place] provide cues , steadying assist 3 The helper provides less than half the effort to complete the activity 2 The helper provides more than half the effort to complete the activity 1 Dependent. The helper does all the effort to complete an activity 7 Patient refused to complete or attempt activity 9 The patient did not perform the activity before the current illness or injury 88 Not attempted due to Medical conditions or safety concerns Self Care: Independent Functional Cognition: Independent DME/Equipment: Bath Chair, Grab Bars, Tub/Shower, Toilet/Riser DME/Equipment Comments Pt ambulated with single point cane. Occupation: disabled Drive Self: Yes Leisure Interests: reading OT Current Status Subjective Pt transported from ICU to ARU by PT/ OT. Pt states "some" pain. Pt agreeable to OT eval/ treat. Mental Status/Objective Patient Orientation: Person, Place, Time, Situation, Normal For Age Current Glasses/Contacts: Yes Hearing Aids: No Dentures/Partials: No Hand Dominance: Right Upper Extremity ROM WFL BUE Upper Extremity Coordination WFL R UE Pt states at time LUE will demonstrate intention tremors. Upper Extremity Sensation WFL BUE Upper Extremity Strength WFL BUE 4+/5 strength ADL-Treatment Eating (QC): 6 Oral Hygiene (QC): 6 (Completes seated in w/c at sink. Able to manipulate with good coordination.) Shower/Bathe Self (QC): 4 (Intermittent assist: pt requires assist drying LE due to fatigue. CGA during transfers to commode for showering) Upper Body Dressing (QC): 6 Lower Body Dressing (QC): 2 (Assist required to doff/ don R CAM boot. Pt requires threading of R LE and CGA in stance during pulling up.) On/Off Footwear (QC): 2 (Pt able to hold R foot off ground in order to place CAM boot on. Pt requires max A for placement; pt able to state discomfort with velcro strap on foot and direct treatment.) Toileting Hygiene (QC): 5 (SBA) Toilet Transfer (QC): 4 (CGA during stance/ getting off and on commode.) Other Treatments OT/PT co-treat from [id number] due to pt non-weight bearing status, complexity of diagnosis and safety measures. OT addressed ADLs, functional mobility, and executive functioning. PT addressed transfers, balance, and gross motor skills. Pt describes fall as pt standing from sit, became light headed/ "eyes went black" and fell. Pt states this has happened multiple times in the past, pt states he is sometimes able to sit before he falls but at times just "goes black ." Pt states son is home throughout the day, works during day. Pt states he was driving self, completing small errands, and reads during the day for fun. Pt completes transfers with CGA. Pt utilizes grab bars within shower and near toilet, once standing at toilet pt states he is okay, pt educated of need of SUP during first encounters. Pt able to navigate room while propelling his w/c. Pt places w/c near recliner chair, states he would like to stand and pivot on one leg without use of FWW. Pt educated on safety measures for mobility. Pt stands from w/c and twists on L foot to reach recliner chair with CGA. Pt return demonstrates and agrees to press call light if he needs to get up. Pt's present at end of session. Call light in reach, all needs met, pt left in recliner chair. Education OT Patient Education: Correct positioning, Energy conservation, Modified ADL techniques, Reviewed precautions, Rehab process, Safety issues, Transfer techniques, Use of adapted equipment Teaching Recipient: Patient Teaching Methods: Demonstration, Discussion Response to Teaching: Verbalize Understanding, Return Demonstration OT Short Term Goals Short Term Goals Grooming(FIM): 6 Lower Body Dressing(FIM): 4 Tub Transfer(FIM): 5 1=Demonstrate adherence to instructed precautions during ADL tasks. 2=Patient will verbalize/demonstrate understanding of assistive devices/modifications for ADL. 3=Patient will improve strength/tolerance for activity to enable patient to perform ADL's. OT Jail Goals Jail Goals Time Frame: Jan 15, 2019 Eating (QC): 6 Oral Hygiene (QC): 6 Shower/Bathe Self (QC): 6 Upper Body Dressing (QC): 6 Lower Body Dressing (QC): 4 On/Off Footwear (QC): 4 Toileting Hygiene (QC): 6 Toilet/Commode Transfer (QC): 6 Additional Goals: 1-Demonstrate ADL Tasks, 2-Verbalize Understanding, 3- ImproveStrength/Etian 1=Demonstrate adherence to instructed precautions during ADL tasks. 2=Patient will verbalize/demonstrate understanding of assistive devices/modifications for ADL. 3=Patient will improve strength/tolerance for activity to enable patient to perform ADL's. OT Education/Plan Problem List/Assessment Assessment: Decreased Activ Tolerance, Decreased Safety Aware, Dependent Transfers, Impaired Funct Balance, Impaired I ADL's, Impaired Self-Care Skills Discharge Recommendations Plan/Recommendations: Continue POC Comment D/c recommendations TBD throughout stay. Treatment Plan/Plan of Care Treatment,Training & Education: Yes Patient would benefit from OT for education, treatment and training to promote independence in ADL's, mobility, safety and/or upper extremity function for ADL's. Plan of Care: ADL Retraining, Caregiver Training, Concurrent Therapy, Functional Mobility, Group Exercise/Act as Ind, Orthotic Fitting/Training, UE Funct Exercise/Act, W/C Management Training Treatment Duration: Jan 15, 2019 Frequency: At least 5 of 7 days/Wk (IRF) Estimated Hrs Per Day: 1.5 hours per day Agreement: Yes Rehab Potential: Fair Time/GCodes Start Time: 11:10 Stop Time: 12:00 Total Time Billed (hr/min): 50 Billed Treatment Time 1 EVM (10) [id number] ADL x3 (40) Co-treat OT/PT from [id number] Total 50 DICKSON SAM OTR Jan 01, 2019 13:01
--- NOTE | 2019-01-01 13:22 | NUR ---
REVIEWED MED REC IT WAS REPORTED UPON ADMISSION TO ICU. NOTE THE FOLLOWING CHANGE WAS MADE WHEN THE PATIENT DISCHARGED TO REHAB THAT IS NOT REFLECTED ON THE HOME MED REC. START TAKING: LOVENOX 40MG DAILY
[2019-01-01] MEDS: oxyCODONE/APAP 5/325MG (PERCOCET 5) TABLET PO PRN ×2 (14:14→20:30)
--- NOTE | 2019-01-01 14:42 | Therapy Group Daily Note ---
Therapy Daily Group Note Patient Education Topic Other List Below (memory) Exercises LE Seated Exercise, UE Exercise Session Ratio (pt:therapist): 4:1 Goal of Session: Memory Strategies, UE/LE Strengthing Goal Met for this Session: Yes Pt Benefit of Group: Contributions to Others, Increased Functional Strength, Improved Cognition, Recognition of Peers, Socialization Other/Notes Pt maneuvered w/c to <-> from OT group at [facility]. Group consisted introductions (name, place born, favorite food), socialization, memory strategies, memory activity, memory education and seated LE/UE exercises. Pt introduced self appropriately and actively listened to peers. Pt acknowledged understanding of educational topics with gestures and verbally. Contributed to conversations and interacted with peers throughout group. Pt able to complete UE/LE seated exercises then remembered one exercise to lead group. Pt did have difficulty with memory activity. After group, pt sitting in w/c with call light/phone in reach. All needs met in room. Start Time: 13:00 Stop Time: 14:10 Total Billed Treatment Time: 70 Total Billed Treatment 1-GRP MARKOS HINOJOSA Jan 01, 2019 14:42
--- NOTE | 2019-01-01 15:12 | ST Cognitive Linguistic Eval ---
Speech Evaluation-General Medical Diagnosis hypotension/right ankle fracture Onset Date: Dec 31, 2018 Therapy Diagnosis Therapy Diagnosis: Cognitive-communication Precautions Precautions: Fall Precautions/Isolations: Fall Prevention, Standard Precautions Referral Referring Physician: Dr. Casillas Reason for Referral: Evaluation/Treatment Medical History Pertinent Medical History: Arthritis, HTN, Smoking Arthritis, HTN, Smoking Current History Hypotension, right ankle fracture Reviewed History: Yes Social History Home: Single Level Current Living Status: Spouse Speech PLF-Current Status Prior Level of Function Patient lives at home with his . He is independent for much of his daily needs. Subjective The patient was laying in his bed resting when I entered his room. His was present. Language Eval: Auditory Comprehends Simple Yes/No Ques: Functional Indent/Objects Multiple Casarez: Functional Ident/Pics in Multiple Casarez: Functional Follows 1-Step Commands: Functional Follows Complex Directions: Functional Follows General Conversations: Functional Language Eval: Verbal Language Completes Spontaneous Greeting: Functional Produces Auto, Serial Info: Functional Imitates Simple Words/Phrases: Functional Word Finding: Functional Requests Basic Needs: Functional States Basic Personal Info: Functional Objective Cognitive Domain Attention: WNL Memory: Mild Problem Solving: Functional Executive Functions: WNL Visuospatial Skills: WNL Composite Severity Rating: WNL Clock Drawing Severity Rating: WNL Objective Formal/Standardized Tests [facility] Mental Status ([facility]) Results 28/30, within normal range of function Oral Motor/Speech Production Within Functional Limits Impression The patient is a pleasant 58 year old man who was admitted to the ARU after a fall resulting in a fractured ankle. The patient has a history of multiple falls and hypotension. The patient was given the SLUMS at bedside with a score of 28/30. This score falls in the normal range of function. The patient does not require skilled ST at this time. Speech Patient Assess Expression of Ideas/Wants: Expression (4) Understanding Verbal Content: Understands (4) Brief Interview-Mental Status: Yes Repetition of Three Words: Three (3) Temporal Orientation: Year: Correct (3) Temporal Orientation: Month: Accurate within 5 days(2) Temporal Orientation: Day: Correct (1) Recall : Wear to say "Sock": Yes,after cueing (1) Recall : Color: Yes, after cueing (1) Recall : Bed: Yes, no cue required (2) Memory/Recall Ability: Current season, That he or she is in a hsp/hsp unit Speech-Plan Patient/Family Goals Patient/Family Goals: The patient plans on returning home where he lives with his . Treatment Plan Speech Therapy Treatment Plan: Discontinue ST Patient does not require skilled ST at this time. Treatment Duration: Jan 01, 2019 Frequency: 1 time per week Estimated Hrs Per Day: .25 hour per day Rehab Potential: Fair Barriers to Learning: None identified Pt/Family Agrees to Plan: Yes Safety Risks/Education Teaching Recipient: Patient Teaching Methods: Discussion Response to Teaching: Verbalize Understanding Education Topics Provided: Safety within his room and communication of his wants/needs Time Speech Therapy Time In: 14:50 Speech Therapy Time Out: 15:05 Total Billed Time: 15 Billed Treatment Time 1, ALIRIO Barfield Jan 01, 2019 15:12
[2019-01-01 17:48] VITALS: BP 127/71
--- NOTE | 2019-01-01 19:21 | NUR ---
bedside report received from KAREN BYERS, assume care of pt
[2019-01-01] MEDS: ENOXAPARIN 40 MG/0.4 ML (LOVENOX) SYR SC SCH (20:26)
[2019-01-01] MEDS: DULoxetine 30 MG (CYMBALTA) CAP PO SCH (20:28)
[2019-01-01] MEDS: ALLOPURINOL 100 MG (ZYLOPRIM) TAB PO SCH (20:29)
[2019-01-01] MEDS: CELECOXIB 100 MG (CeleBREX) CAP PO SCH (20:29)
--- NOTE | 2019-01-01 20:30 | NUR ---
c/o rt leg pain level 8/10 on numeric scale, Percocet 5/325 1 tab & scheduled Celebrex 200mg
[2019-01-01] MEDS ORDERED: NON-FORMULARY MEDICATION 1 EA EA (Duloxetine HCl 60 MG) PO SCH (21:00)
[2019-01-01] MEDS ORDERED: NON-FORMULARY MEDICATION 1 EA EA (Celecoxib 200 MG) PO SCH (21:00)
[2019-01-01] MEDS ORDERED: NON-FORMULARY MEDICATION 1 EA EA (Allopurinol 100 MG) PO SCH (21:00)
--- NOTE | 2019-01-01 21:18 | NUR ---
resting quietly in bed, pain level 0/10 on flacc scale
[2019-01-02] MEDS: oxyCODONE/APAP 5/325MG (PERCOCET 5) TABLET PO PRN ×4 (02:20→20:13)
--- NOTE | 2019-01-02 02:20 | NUR ---
c/o rt leg pain level 11/07 Percocet 1 tab given
--- NOTE | 2019-01-02 03:12 | NUR ---
resting quietly in bed, pain level 0/10 on flacc scale
[2019-01-02 05:53] VITALS: BP 125/80
[2019-01-02] MEDS: LEVOTHYROXINE 50 MCG (LEVOTHROID) TAB PO SCH (06:54)
--- NOTE | 2019-01-02 07:28 | NUR ---
bedside report given to BIB BYERS
[2019-01-02] MEDS ORDERED: ENOXAPARIN 40 MG/0.4 ML (LOVENOX) SYR SC SCH (08:30)
[2019-01-02] MEDS: CYANOCOBALAMIN 1,000 MCG (VITAMIN B-12) TABLET PO SCH (08:35)
[2019-01-02] MEDS: CELECOXIB 100 MG (CeleBREX) CAP PO SCH ×2 (08:35→20:13)
[2019-01-02] MEDS: VITAMIN D3 5,000 UNITS (CHOLECALCIFEROL ) CAPSULE PO SCH (08:53)
[2019-01-02] MEDS ORDERED: VITAMIN D3 1,000 UNITS (CHOLECALCIFEROL) TABLET PO SCH (09:00)
[2019-01-02] MEDS ORDERED: NON-FORMULARY MEDICATION 1 EA EA (Cholecalciferol (Vitamin D3) (Vitamin D3) 1,000 UNIT) PO SCH (09:00)
--- NOTE | 2019-01-02 11:55 | Physical Therapy Daily Note ---
PT Daily Note-Current Subjective Pt agreeable to PT session. States that he does not walk much at home, stays in his bed or recliner in his bedroom most of the time and that his bathroom is less than 10 feet away. States he has had several surgeries in the last several years on his neck, back and RTKR. States his R knee pops over kneecap and is painful at times. States he is eventually supposed to get a knee replacement for L knee grinding. Pain Numeric Pain Scale: 0-No Pain Comment: states he received his pain med about 0830 am Appearance Pt in bed, easily arousable upon arrival. At end of session, per pt request, pt supine in bed with call light, phone and bedside table within reach Mental Status Patient Orientation: Person, Place, Time, Eyes Open, Situation, Normal For Age Boot for RLE/ankle foot. Transfers Therapy Quality Codes: 6 Independent with activity with or without an assistive device 5 Patient requires set up or clean up by helper. Patient completes activity by themselves 4 Supervision or touching assist (CGA). [place] provide cues , steadying assist 3 The helper provides less than half the effort to complete the activity 2 The helper provides more than half the effort to complete the activity 1 Dependent. The helper does all the effort to complete an activity 7 Patient refused to complete or attempt activity 9 The patient did not perform the activity before the current illness or i njury 88 Not attempted due to Medical conditions or safety concerns Weight Bearing Right Lower Extremity: Right Non Weight Bearing Gait Training Does the Patient Walk?: Yes Gait: 4 Distance: 5 x5 Gait Persons Needed: 1 Gait Assistive Device: FWW NWB RLE with boot on. Hopping fwd/bkwd while following skilled inst on technique and safety for NWB RLE and hopping. Pt fatigued and required several sitting rest breaks Exercises Supine Ex: Knee to chest, Straight leg raise Supine Reps: 20 (discussed and instructed in performance) Treatments bed mobility, transfers, gait with NWB, safety, balance, strength, functional mobility, activity tolerance, education Assessment Current Status: Good Progress pt able to maintain RLE off floor during transfers and hopping following skilled instruction for technique and performance. Pt does fatigue quickly PT Short Term Goals Short Term Goals Time Frame: Jan 08, 2019 Gait Distance Comment: 20' Gait Assistive Device: FWW Wheelchair Distance: 50' PT Slasher Hand Goals Skilled Nursing Goals PT Skilled Nursing Goals Time Frame: Jan 22, 2019 Sit to Lying (QC): 6 Lying-Sitting on Side/Bed(QC): 6 Sit to Stand (QC): 4 (SBA) Roll Left to Right (QC): 6 Chair/Srb-up-Hocgl Xfer(QC): 4 (SBA) Car Transfer (QC): 4 (SBA) Distance: 50' Walk 10 feet (QC): 4 (SBA) Walk 10ft-Uneven Surface(QC): 4 (SBA) Walk 50ft with 2 Turns (QC): 4 (SBA) Gait Level of Assist: 4 (SBA) Gait Assistive Device: FWW # of Steps: 4 1 Step (curb) (QC): 4 (SBA) 4 Steps (QC): 4 (SBA) Stairs Level Of Assist: 4 (SBA) PT Plan Treatment/Plan Treatment Plan: Continue Plan of Care Treatment Plan: Bed Mobility, Concurrent Therapy, Education, Functional Activity E[place], Functional Strength, Group Therapy, Gait, Safety, Therapeutic Exercise, Transfers Treatment Duration: Jan 22, 2019 Frequency: At least 5 of 7 days/Wk (IRF) Estimated Hrs Per Day: 1.5 hours per day Patient and/or Family Agrees t: Yes Safety Risks/Education Patient Education: Gait Training, Transfer Techniques, Reviewed Precautions, Safety Issues Teaching Recipient: Patient Teaching Methods: Demonstration, Discussion Response to Teaching: Verbalize Understanding, Return Demonstration, Reinforcement Needed Time/GCodes Time In: 946 Time Out: 1010 Total Billed Treatment Time: 24 Total Billed Treatment 1 visit, FA x24 min ISABELL MAXWELL ITEM PROCESSING CLERK Jan 02, 2019 11:55
[2019-01-02] MEDS ORDERED: ACETAMINOPHEN 325 MG TABLET PO PRN (12:00)
--- NOTE | 2019-01-02 12:24 | PM&R Progress Note ---
Subjective HPI/CC On Admission Date Seen by Provider: Jan 02, 2019 Time Seen by Provider: 11:00 Chief complaint: Acute tibiafibula fracture nonweightbearing History of present illness: This is a 58-year-old white male with Dr. Mcpherson who has a past medical history of multiple falls in the past maintained on Lyrica and Amitriptyline along with oxycodone who presented to the ER after sustaining a fall when he got up to go to the bathroom. He was found to have significant hypotension requiring aggressive IV fluids noted elevated lactic acid due to volume depletion which has since resolved after supportive care in the ICU. No evidence of any type of bacterial infection causing sepsis noted. He is maintained on oxycodone for chronic pain syndrome and he doesn't really move around too much at home because of the significant falls he has had in the past and continues to have. His of 38 years is at the bedside. 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 Patient is 6 foot 6 so it is imperative to give the patient skills in order to go home to help with transfers and less and the burden on caregivers. Subjective/Events-last exam Patient doing very well Had a bowel movement yesterday after multiple meds We will add Tylenol and ibuprofen to the oxycodone for pain control He is on chronic pain medication at home Labs remained stable on acute med stay Check meds and labs Conferred with RN Reviewed therapy notes Maintain on Lovenox for DVT prophylaxis Review of Systems General: Fatigue Musculoskeletal: leg pain, foot pain Objective Exam Vital Signs Vital Signs Date Time Temp Pulse Resp B/P (MAP) Pulse Ox O2 Delivery O2 Flow Rate FiO2 01/02/19 18:00 36.6 73 16 142/82 (102) 94 Room Air Capillary Refill : Less Than 3 SecondsLess Than 3 Seconds General Appearance: No Apparent Distress, WD/WN, Chronically ill HEENT: PERRL/EOMI, Normal ENT Inspection, Pharynx Normal, Moist Mucous Membranes Neck: Full Range of Motion, Normal Inspection, Non Tender, Supple Respiratory: Chest Non Tender, Lungs Clear, Normal Breath Sounds, No Accessory Muscle Use, No Respiratory Distress Cardiovascular: Regular Rate, Rhythm, No Edema, No Gallop, No JVD, No Murmur Gastrointestinal: Normal Bowel Sounds, No Organomegaly, No Pulsatile Mass, Non Tender, Soft Back: Normal Inspection, No CVA Tenderness, No Vertebral Tenderness Extremity: Normal Capillary Refill, Normal Inspection, Normal Range of Motion (except right foot in boot and brace), Non Tender, No Calf Tenderness, No Pedal Edema Neurologic/Psychiatric: Alert, Oriented x3, No Motor/Sensory Deficits, burnisher II- XII Norm as Tested, Depressed Affect Skin: Normal Color, Warm/Dry Lymphatic: No Adenopathy Results/Procedures Lab Patient resulted labs reviewed. FIM Transfers Therapy Code Descriptions/Definitions Functional [place] Measure: 0=Not Assessed/NA 4=Minimal Assistance 1=Total Assistance 5=Supervision or Setup 2=Maximal Assistance 6=Modified [place] 3=Moderate Assistance 7=Complete [place] Therapy Quality Codes: 6 Independent with activity with or without an assistive device 5 Patient requires set up or clean up by helper. Patient completes activity by themselves 4 Supervision or touching assist (CGA). [place] provide cues , steadying assist 3 The helper provides less than half the effort to complete the activity 2 The helper provides more than half the effort to complete the activity 1 Dependent. The helper does all the effort to complete an activity 7 Patient refused to complete or attempt activity 9 The patient did not perform the activity before the current illness or injury 88 Not attempted due to Medical conditions or safety concerns Roll Left to Right (QC): 6 Sit to Lying (QC): 6 Sit to Stand (QC): 3 Chair/Qnv-ht-Xkiie Xfer(QC): 3 Car Transfer (QC): 3 Gait Training Does the Patient Walk?: Yes Gait (FIM): 4 Distance: 5 x5 Walk 10 feet (QC): 88 Walk 50 ft with 2 Turns(QC): 88 Walk 150 ft (QC): 88 Walking 10ft/uneven surface-QC: 88 Gait Level of Assist: 3 Gait Persons Needed: 1 Gait Assistive Device: FWW Wheelchair Training Does the Pt Use a Wheelchair?: Yes Distance: 50' Wheelchair Level of Assist: 5 Wheel 50 ft with 2 turns (QC): 4 Type of Wheelchair: Manual Stair Training 1 Step (curb) (QC): 88 4 Steps (QC): 88 12 Steps (QC): 88 Balance Picking up an Object (QC): 88 ADL-Treatment Eating (QC): 6 Oral Hygiene (QC): 6 (Completes seated in w/c at sink. Able to manipulate with good coordination.) Shower/Bathe Self (QC): 4 (Intermittent assist: pt requires assist drying LE due to fatigue. CGA during transfers to commode for showering) Upper Body Dressing (QC): 6 Lower Body Dressing (QC): 2 (Assist required to doff/ don R CAM boot. Pt requires threading of R LE and CGA in stance during pulling up.) On/Off Footwear (QC): 2 (Pt able to hold R foot off ground in order to place CAM boot on. Pt requires max A for placement; pt able to state discomfort with velcro strap on foot and direct treatment.) Toileting Hygiene (QC): 5 (SBA) Toilet Transfer (QC): 4 (CGA during stance/ getting off and on commode.) Assessment/Plan Assessment and Plan Assess & Plan/Chief Complaint Assessment: Right tib-fib fracture now non-weight bearing Falls frequently at home RLS Neuropathy Plan: Monitor pain Lovenox IRF protocol (1) Fracture of distal end of right fibula Status: Acute (2) Leukocytosis Status: Acute (3) Depression Status: Chronic Qualifiers: Depression Type: unspecified Qualified Codes: F32.9 - Major depressive disorder, single episode, unspecified (4) Neuropathy Status: Chronic (5) Restless leg syndrome Status: Chronic (6) Debility Status: Acute (7) Hypotension Status: Acute Qualifiers: Hypotension type: unspecified hypotension type Qualified Codes: I95.9 - Hypotension, unspecified (8) Elevated lactic acid level Status: Acute (9) Status post total right knee replacement Status: Chronic (10) Fall on same level Status: Acute Qualifiers: Encounter type: initial encounter Qualified Codes: W18.30XA - Fall on same level, unspecified, initial encounter (11) Hypotension Status: Acute Qualifiers: Hypotension type: idiopathic hypotension Qualified Codes: I95.0 - Idiopathic hypotension (12) Lower back pain Status: Chronic (13) Radiculopathy Status: Chronic Qualifiers: Spinal region: unspecified Qualified Codes: M54.10 - Radiculopathy, site unspecified (14) Syncope Status: Acute SAMAN BALDERAS DO Jan 02, 2019 12:24
--- NOTE | 2019-01-02 12:24 | Individualized Plan of Care ---
Individualized Plan of Care Rehab Nursing IPOC Order Admission Date Jan 01, 2019 at 11:00 Current Orders Orders Admission Order(Inpt,Obs,Sdc) (01/01/19 10:38) Vital Signs: Per Unit Policy ( 08,16,00 (01/01/19 10:38) Event Coordinator-Inpt Rehab Con (01/01/19 10:38) Rehab Nursing Orders-Ipoc (01/01/19 10:38) Physical Therapy Rehab Orders (01/01/19 10:38) Occupational Therapy Rehab Ord (01/01/19 10:38) Speech Therapy Rehab Orders (01/01/19 10:38) General/Regular (01/01/19 Dinner) Intake & Output 06,14,22 (01/01/19 10:38) Precautions (Aru) (01/01/19 10:38) Weekly Weight WEEK (01/01/19 10:38) Rehab-Intensity Of Therapy (01/01/19 10:38) Initiate Admission Nursing Pro .admission (01/01/19 10:38) Initiate Admission Nursing Pro .admission (01/01/19 10:38) Cyanocobalamin Tablet (Vitamin B-12 Tabl (01/02/19 09:00) Docusate Sodium Capsule (Colace Capsule) (01/01/19 12:45) Levothyroxine Tablet (Synthroid Tablet) (01/02/19 06:30) Oxycodone/Apap 5/325mg Tablet (Percocet (01/01/19 12:45) (Nf) Allopurinol (01/01/19 21:00) (Nf) Celecoxib (01/01/19 21:00) (Nf) Cholecalciferol (Vitamin D3) (Vitam (01/02/19 09:00) (Nf) Duloxetine Hcl (01/01/19 21:00) (Nf) Ondansetron Hcl (01/01/19 12:45) (Nf) Tizanidine Hcl (01/01/19 12:45) Enoxaparin Injection (Lovenox Injection) (01/01/19 20:30) Ondansetron Oral Dissolve Tab (Zofran (01/01/19 13:00) Allopurinol Tablet (Zyloprim Tablet) (01/01/19 21:00) Tizanidine Tablet (Zanaflex Tablet) (01/01/19 13:00) Cholecalciferol Capsule/Tablet (Vitamin (01/02/19 09:00) Celecoxib Capsule (Celebrex Capsule) (01/01/19 21:00) Duloxetine Capsule (Cymbalta Capsule) (01/01/19 21:00) Patient Visit (01/01/19 ) Pt Eval Moderate Complexity (01/01/19 ) Functional Activities, Ea 15 (01/01/19 ) Patient Visit (01/01/19 ) Speech Sound Lang Comp (01/01/19 ) Cholecalciferol Capsule/Tablet (Vitamin (01/02/19 09:00) Enoxaparin Injection (Lovenox Injection) (01/02/19 08:30) Patient Visit (01/02/19 ) Functional Activities, Ea 15 (01/02/19 ) Acetaminophen Tablet/Caplet (Tylenol T (01/02/19 12:00) Rehab Nursing Orders: Ongoing Assess. of Function Status, Bowel Management, DVT Prophylaxis, Fall Prevention, Fluid/Electrolyte/Nutrition Mgmt, Management of Risks & Complications, Nutrition Management, Pain Management, Patient/Family Support Intensity of Therapy to be met Patient to be seen: Min.3h per day/5 of 7d PT IPOC Problem List: Activity Tolerance, Functional Strength, Safety, Balance, Gait, Transfer, Bed Mobility, ROM Treatment Plan: Continue Plan of Care Bed Mobility, Concurrent Therapy, Education, Functional Activity [place], Functional Strength, Group Therapy, Gait, Safety, Therapeutic Exercise, Transfers Treatment Duration: Jan 22, 2019 Frequency: At least 5 of 7 days/Wk (IRF) Estimated Hrs Per Day: 1.5 hours per day OT IPOC Problems: Decreased Activ Tolerance, Decreased Safety Aware, Dependent Tr ansfers, Impaired Funct Balance, Impaired I ADL's, Impaired Self-Care Skills OT Treatment, Training and Edu: Yes Plan of Care: ADL Retraining, Caregiver Training, Concurrent Therapy, Functional Mobility, Group Exercise/Act as Ind, Orthotic Fitting/Training, UE Funct Exercise/Act, W/C Management Training Treatment Duration: Jan 15, 2019 Frequency: At least 5 of 7 days/Wk (IRF) Estimated Hrs Per Day: 1.[address] IPOC Speech Therapy Treatment Plan: Discontinue ST Treatment Duration: Jan 01, 2019 Frequency: 1 time per week Estimated Hrs Per Day: .25 hour per day Event Coordinator/Case Mgmt Event Coordinator/Case Managemen: Discharge Planning Dietitian/Life Skills Coordinator Volunteer Dietitian/Life Skills Coordinator Volunteer to monitor nutritional status and make changes and/or recommendations as needed and work with speech pathology on dietary upgrades as the occur. Physician IPOC Medical Issues being managed closely and that require the 24 hour availability of a physician: Multiple falls in the past and high risk for recurrent hypotension as admit dx displayed Medical Issues: DVT Prophylaxis, Falls Precautions, Fluid/Electrolyte/Nutrition Balance, Pain Management Brief Synthesis of Preadmission Screen, Post-Admission Evaluation, and Therapy Evaluations: PT will provide techniques to help ambulation in right leg non-weight bearing status OT will help patient regain independent ADL's Medical Prognosis: Good Anticipated Length of Stay: 7 days SAMAN BALDERAS DO Jan 02, 2019 12:24
[2019-01-02 18:00] VITALS: BP 142/82
--- NOTE | 2019-01-02 19:15 | NUR ---
bedside report received from HUGO BYERS, ASSUME CARE OF PT
[2019-01-02] MEDS: DULoxetine 30 MG (CYMBALTA) CAP PO SCH (20:12)
[2019-01-02] MEDS: ALLOPURINOL 100 MG (ZYLOPRIM) TAB PO SCH (20:13)
--- NOTE | 2019-01-02 20:13 | NUR ---
c/o pain to rt leg pain level 8/10 on numeric scale, Percocet 5/325 1 tab & scheduled Celebrex 200mg given
[2019-01-02] MEDS: ENOXAPARIN 40 MG/0.4 ML (LOVENOX) SYR SC SCH (20:17)
--- NOTE | 2019-01-02 20:45 | NUR ---
rates pain level 5/10 on numeric scale
[2019-01-03] MEDS: oxyCODONE/APAP 5/325MG (PERCOCET 5) TABLET PO PRN ×4 (02:06→20:08)
--- NOTE | 2019-01-03 02:06 | NUR ---
c/o pain to rt lower leg level 9/10 on numeric scale, Percocet 5/325 1 tab po given
--- NOTE | 2019-01-03 02:40 | NUR ---
resting quietly in bed, pain level 0/10 on flacc scale
[2019-01-03 05:59] VITALS: BP 151/79
[2019-01-03] MEDS: LEVOTHYROXINE 50 MCG (LEVOTHROID) TAB PO SCH (06:41)
--- NOTE | 2019-01-03 07:21 | NUR ---
bedside report given to TOREY BYERS
[2019-01-03] MEDS: VITAMIN D3 5,000 UNITS (CHOLECALCIFEROL ) CAPSULE PO SCH (08:19)
[2019-01-03] MEDS: CELECOXIB 100 MG (CeleBREX) CAP PO SCH ×2 (08:19→20:07)
[2019-01-03] MEDS: CYANOCOBALAMIN 1,000 MCG (VITAMIN B-12) TABLET PO SCH (08:19)
--- NOTE | 2019-01-03 12:39 | PM&R Progress Note ---
Subjective HPI/CC On Admission Date Seen by Provider: Jan 03, 2019 Time Seen by Provider: 11:30 Chief complaint: Acute tibiafibula fracture nonweightbearing History of present illness: This is a 58-year-old white male with Dr. Mcpherson who has a past medical history of multiple falls in the past maintained on Lyrica and Amitriptyline along with oxycodone who presented to the ER after sustaining a fall when he got up to go to the bathroom. He was found to have significant hypotension requiring aggressive IV fluids noted elevated lactic acid due to volume depletion which has since resolved after supportive care in the ICU. No evidence of any type of bacterial infection causing sepsis noted. He is maintained on oxycodone for chronic pain syndrome and he doesn't really move around too much at home because of the significant falls he has had in the past and continues to have. His of 38 years is at the bedside. 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 Patient is 6 foot 6 so it is imperative to give the patient skills in order to go home to help with transfers and less and the burden on caregivers. Subjective/Events-last exam Patient doing very well today but already stating he can't do the therapy as proposed by protocol Had a bowel movement yesterday after multiple meds given last week We will add Tylenol and ibuprofen to the oxycodone for pain control He is on chronic pain medication at home Labs remained stable on acute med stay Checking labs in morning States he has been very debilitated since the knee revision 3 years ago and mostly sits in his recliner and bed most of the day and night since then Blister formation from boot was assessed by nursing staff and noted a lot of edema of the leg now Check meds and labs Conferred with RN Reviewed therapy notes Maintain on Lovenox for DVT prophylaxis Review of Systems Musculoskeletal: leg pain Objective Exam Vital Signs Vital Signs Date Time Temp Pulse Resp B/P (MAP) Pulse Ox O2 Delivery O2 Flow Rate FiO2 01/03/19 09:11 Room Air 01/03/19 05:59 36.9 75 18 151/79 (103) 97 Capillary Refill : Less Than 3 SecondsLess Than 3 Seconds General Appearance: No Apparent Distress, WD/WN, Chronically ill HEENT: PERRL/EOMI, Normal ENT Inspection, Pharynx Normal, Moist Mucous Membranes Neck: Full Range of Motion, Normal Inspection, Non Tender, Supple Respiratory: Chest Non Tender, Lungs Clear, Normal Breath Sounds, No Accessory Muscle Use, No Respiratory Distress Cardiovascular: Regular Rate, Rhythm, No Edema, No Gallop, No JVD, No Murmur Gastrointestinal: Normal Bowel Sounds, No Organomegaly, No Pulsatile Mass, Non Tender, Soft Back: Normal Inspection, No CVA Tenderness, No Vertebral Tenderness Extremity: Normal Capillary Refill, Normal Inspection, Normal Range of Motion (except right foot in boot and brace), Non Tender, No Calf Tenderness, No Pedal Edema Neurologic/Psychiatric: Alert, Oriented x3, No Motor/Sensory Deficits, 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 FIM Transfers Therapy Code Descriptions/Definitions Functional [place] Measure: 0=Not Assessed/NA 4=Minimal Assistance 1=Total Assistance 5=Supervision or Setup 2=Maximal Assistance 6=Modified [place] 3=Moderate Assistance 7=Complete [place] Therapy Quality Codes: 6 Independent with activity with or without an assistive device 5 Patient requires set up or clean up by helper. Patient completes activity by themselves 4 Supervision or touching assist (CGA). [place] provide cues , steadying assist 3 The helper provides less than half the effort to complete the activity 2 The helper provides more than half the effort to complete the activity 1 Dependent. The helper does all the effort to complete an activity 7 Patient refused to complete or attempt activity 9 The patient did not perform the activity before the current illness or injury 88 Not attempted due to Medical conditions or safety concerns Roll Left to Right (QC): 6 Sit to Lying (QC): 6 Sit to Stand (QC): 3 Chair/Nle-gj-Otzrj Xfer(QC): 3 Car Transfer (QC): 3 Gait Training Does the Patient Walk?: Yes Gait (FIM): 4 Distance: 5 x5 Walk 10 feet (QC): 88 Walk 50 ft with 2 Turns(QC): 88 Walk 150 ft (QC): 88 Walking 10ft/uneven surface-QC: 88 Gait Level of Assist: 3 Gait Persons Needed: 1 Gait Assistive Device: FWW Wheelchair Training Does the Pt Use a Wheelchair?: Yes Distance: 50' Wheelchair Level of Assist: 5 Wheel 50 ft with 2 turns (QC): 4 Type of Wheelchair: Manual Stair Training 1 Step (curb) (QC): 88 4 Steps (QC): 88 12 Steps (QC): 88 Balance Picking up an Object (QC): 88 ADL-Treatment Eating (QC): 6 Oral Hygiene (QC): 6 (Completes seated in w/c at sink. Able to manipulate with good coordination.) Shower/Bathe Self (QC): 4 (Intermittent assist: pt requires assist drying LE due to fatigue. CGA during transfers to commode for showering) Upper Body Dressing (QC): 6 Lower Body Dressing (QC): 2 (Assist required to doff/ don R CAM boot. Pt re quires threading of R LE and CGA in stance during pulling up.) On/Off Footwear (QC): 2 (Pt able to hold R foot off ground in order to place CAM boot on. Pt requires max A for placement; pt able to state discomfort with velcro strap on foot and direct treatment.) Toileting Hygiene (QC): 5 (SBA) Toilet Transfer (QC): 4 (CGA during stance/ getting off and on commode.) Assessment/Plan Assessment and Plan Assess & Plan/Chief Complaint Assessment: Right tib-fib fracture now non-weight bearing Falls frequently at home RLS Neuropathy Plan: Monitor pain Lovenox IRF protocol (1) Fracture of distal end of right fibula Status: Acute (2) Leukocytosis Status: Acute (3) Depression Status: Chronic Qualifiers: Depression Type: unspecified Qualified Codes: F32.9 - Major depressive disorder, single episode, unspecified (4) Neuropathy Status: Chronic (5) Restless leg syndrome Status: Chronic (6) Debility Status: Acute (7) Hypotension Status: Acute Qualifiers: Hypotension type: unspecified hypotension type Qualified Codes: I95.9 - Hypotension, unspecified (8) Elevated lactic acid level Status: Acute (9) Status post total right knee replacement Status: Chronic (10) Fall on same level Status: Acute Qualifiers: Encounter type: initial encounter Qualified Codes: W18.30XA - Fall on same level, unspecified, initial encounter (11) Hypotension Status: Acute Qualifiers: Hypotension type: idiopathic hypotension Qualified Codes: I95.0 - Idiopathic hypotension (12) Lower back pain Status: Chronic (13) Radiculopathy Status: Chronic Qualifiers: Spinal region: unspecified Qualified Codes: M54.10 - Radiculopathy, site unspecified (14) Syncope Status: Acute SAMAN BALDERAS DO Jan 03, 2019 12:39
[2019-01-03 17:16] VITALS: BP 151/77
--- NOTE | 2019-01-03 19:15 | NUR ---
bedside report received from TOREY BYERS, assume care of pt
[2019-01-03] MEDS: ALLOPURINOL 100 MG (ZYLOPRIM) TAB PO SCH (20:08)
[2019-01-03] MEDS: DULoxetine 30 MG (CYMBALTA) CAP PO SCH (20:08)
--- NOTE | 2019-01-03 20:08 | NUR ---
c/o pain to rt leg pain level 8/10 on numeric scale scheduled Celebrex 200mg & Percocet 5/325 1 tab po given
[2019-01-03] MEDS: ENOXAPARIN 40 MG/0.4 ML (LOVENOX) SYR SC SCH (20:11)
--- NOTE | 2019-01-03 20:54 | NUR ---
rates pain level 5/10 on numeric scale
[2019-01-04] MEDS: oxyCODONE/APAP 5/325MG (PERCOCET 5) TABLET PO PRN ×4 (02:18→21:13)
--- NOTE | 2019-01-04 02:18 | NUR ---
c/o rt leg pain level 8/10 on numeric scale, Percocet 5/325 1 tab po given
--- NOTE | 2019-01-04 03:05 | NUR ---
resting quietly in bed, pain level 0/10 on flacc scale
[2019-01-04 05:40] VITALS: BP 154/76
[2019-01-04 06:25] LABS: BASOPHILS % (AUTO) 0 % (0-10); EOSINOPHILS # (AUTO) 0.2 10^3/uL (0.0-0.3); EOSINOPHILS % (AUTO) 2 % (0-10); HEMATOCRIT 37 % (40-54); HEMOGLOBIN 12.5 G/DL (13.3-17.7); LYMPHOCYTES % (AUTO) 19 % (12-44); MEAN CORPUSCULAR HEMOGLOBIN 32 PG (25-34); MEAN CORPUSCULAR HGB CONC 34 G/DL (32-36); MEAN CORPUSCULAR VOLUME 94 FL (80-99); MEAN PLATELET VOLUME 9.4 FL (7.4-10.4); MONOCYTES # (AUTO) 1.1 X 10^3 (0.0-1.0); MONOCYTES % (AUTO) 11 % (0-12); NEUTROPHILS # (AUTO) 7.1 X 10^3 (1.8-7.8); NEUTROPHILS % (AUTO) 69 % (42-75); PLATELET COUNT 251 10^3/uL (130-400); RED CELL DISTRIBUTION WIDTH 12.6 % (10.0-14.5); WHITE BLOOD COUNT 10.4 10^3/uL (4.3-11.0)
[2019-01-04] MEDS: LEVOTHYROXINE 50 MCG (LEVOTHROID) TAB PO SCH (06:39)
[2019-01-04 06:40] LABS: ALANINE AMINOTRANSFERASE 30 U/L (0-55); ALBUMIN 3.8 GM/DL (3.2-4.5); ALKALINE PHOSPHATASE 123 U/L (40-136); BILIRUBIN,TOTAL 0.6 MG/DL (0.1-1.0); BUN/CREATININE RATIO 12; CALCIUM 9.3 MG/DL (8.5-10.1); CARBON DIOXIDE 26 MMOL/L (21-32); CHLORIDE 103 MMOL/L (98-107); CREATININE SERUM 0.83 MG/DL (0.60-1.30); GFR ESTIMATED > 60; GLUCOSE 88 MG/DL (70-105); POTASSIUM 3.6 MMOL/L (3.6-5.0); SODIUM 140 MMOL/L (135-145); TOTAL PROTEIN 7.1 GM/DL (6.4-8.2)
--- NOTE | 2019-01-04 07:21 | NUR ---
bedside report given to HUGO BYERS
--- NOTE | 2019-01-04 08:18 | Occupational Ther Daily Note ---
OT Current Status-Daily Note Subjective Pt alert, lying in bed. Pt stated that he was waiting on a pain pill that nrsg would bring in 30 min. Rated pain 7/10. Pt did agree to work with [facility]. PCP in room to check on pt, pt stated that he needed to leave to he could get home to his bed and have a good night's sleep since the hospital bed is too short. Mental Status/Objective Patient Orientation: Person, Place, Time, Situation Therapy Code Descriptions/Definitions Functional [place] Measure: 0=Not Assessed/NA 4=Minimal Assistance 1=Total Assistance 5=Supervision or Setup 2=Maximal Assistance 6=Modified [place] 3=Moderate Assistance 7=Complete [place] Attachments: Other-See Comments (foot brace) ADL-Treatment Pt agrees to shower. Supine to EOB by self. Positioning and locking brakes needed then pt able to transfer with L LE from EOB <--> to w/c with supervision. Pt maneuvered w/c to bathroom and transferred into/out of shower using w/c, shower bench and grabbars, assist needed to position w/c and lock brakes. Pt completed showering using shower bench, hand held shower and grabbars by self, leaning side to side to cleanse buttocks. Set up for clothing then pt able to dress upper body by self sitting on EOB and dress lower body over feet by self, supervision in standing to hike underpants then pt supine to hike pants. Pt donned/doffed L sock by self, assist needed to don/doff brace on R foot. Sitting in w/c, pt able to complete own grooming. Therapy Code Descriptions/Definitions Functional [place] Measure: 0=Not Assessed/NA 4=Minimal Assistance 1=Total Assistance 5=Supervision or Setup 2=Maximal Assistance 6=Modified [place] 3=Moderate Assistance 7=Complete [place] Therapy Quality Codes: 6 Independent with activity with or without an assistive device 5 Patient requires set up or clean up by helper. Patient completes activity by themselves 4 Supervision or touching assist (CGA). [place] provide cues , steadying ass ist 3 The helper provides less than half the effort to complete the activity 2 The helper provides more than half the effort to complete the activity 1 Dependent. The helper does all the effort to complete an activity 7 Patient refused to complete or attempt activity 9 The patient did not perform the activity before the current illness or injury 88 Not attempted due to Medical conditions or safety concerns Oral Hygiene (QC): 6 Bathing Location: L Arm, R Arm, L Upper Leg, R Upper Leg, L Lower Leg (including foot), R Lower Leg (including foot), Chest, Abdomen, Buttocks, Per ineal Area Shower/Bathe Self (QC): 4 Upper Body Dressing (QC): 5 Lower Body Dressing (QC): 4 (footwear (QC) 3) OT Short Term Goals Short Term Goals Grooming(FIM): 6 Lower Body Dressing(FIM): 4 Tub Transfer(FIM): 5 1=Demonstrate adherence to instructed precautions during ADL tasks. 2=Patient will verbalize/demonstrate understanding of assistive devices/mo difications for ADL. 3=Patient will improve strength/tolerance for activity to enable patient to perform ADL's. OT Head Of Stock Goals Head Of Stock Goals Time Frame: Jan 15, 2019 Eating (QC): 6 Oral Hygiene (QC): 6 Shower/Bathe Self (QC): 6 Upper Body Dressing (QC): 6 Lower Body Dressing (QC): 4 On/Off Footwear (QC): 4 Toileting Hygiene (QC): 6 Toilet/Commode Transfer (QC): 6 Additional Goals: 1-Demonstrate ADL Tasks, 2-Verbalize Understanding, 3- ImproveStrength/[place] 1=Demonstrate adherence to instructed precautions during ADL tasks. 2=Patient will verbalize/demonstrate understanding of assistive devices/modifications for ADL. 3=Patient will improve strength/tolerance for activity to enable patient to perform ADL's. OT Education/Plan Problem List/Assessment Assessment: Impaired Funct Balance, Impaired Self-Care Skills Discharge Recommendations Plan/Recommendations: Continue POC Treatment Plan/Plan of Care Patient would benefit from OT for education, treatment and training to promote independence in ADL's, mobility, safety and/or upper extremity function for ADL's. Plan of Care: ADL Retraining, Caregiver Training, Concurrent Therapy, Functional Mobility, Group Exercise/Act as Ind, Orthotic Fitting/Training, UE Funct Exercise/Act, W/C Management Training Treatment Duration: Jan 15, 2019 Frequency: At least 5 of 7 days/Wk (IRF) Estimated Hrs Per Day: 1.5 hours per day Agreement: Yes Rehab Potential: Fair Time/GCodes Start Time: 08:00 Stop Time: 09:30 Total Time Billed (hr/min): 90 Billed Treatment Time 1 visit-ADL 5 (75 min) EX 1 (15 min) MARKOS HINOJOSA Jan 04, 2019 08:18
--- NOTE | 2019-01-04 08:28 | PM&R Progress Note ---
Subjective HPI/CC On Admission Date Seen by Provider: Jan 04, 2019 Time Seen by Provider: 08:30 Chief complaint: Acute tibiafibula fracture nonweightbearing History of present illness: This is a 58-year-old white male with Dr. Mcpherson who has a past medical history of multiple falls in the past maintained on Lyrica and Amitriptyline along with oxycodone who presented to the ER after sustaining a fall when he got up to go to the bathroom. He was found to have significant hypotension requiring aggressive IV fluids noted elevated lactic acid due to volume depletion which has since resolved after supportive care in the ICU. No evidence of any type of bacterial infection causing sepsis noted. He is maintained on oxycodone for chronic pain syndrome and he doesn't really move around too much at home because of the significant falls he has had in the past and continues to have. His of 38 years is at the bedside. 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 Patient is 6 foot 6 so it is imperative to give the patient skills in order to go home to help with transfers and less and the burden on caregivers. Subjective/Events-last exam PT complained about being worked up at 6am for labs Reviewed labs, everything within normal limits Bowels will be maintained on regimen Blister formation from the boot is concerning Pain is still severe Pt wants to be left alone and go home because he so severely debilitated, ordinarily he just sits around at home on the sofa or recliner for the past 3 years Pt will be on Eliquis at time of DC for oral anticoagulation for increased risk of DVT Check meds and labs Conferred with RN Reviewed therapy notes Maintain on Lovenox for DVT prophylaxis Review of Systems Musculoskeletal: leg pain, foot pain Objective Exam Vital Signs Vital Signs Date Time Temp Pulse Resp B/P (MAP) Pulse Ox O2 Delivery O2 Flow Rate FiO2 01/04/19 17:40 36.0 70 16 152/81 (104) 97 Room Air Capillary Refill : Less Than 3 SecondsLess Than 3 Seconds General Appearance: No Apparent Distress, WD/WN, Chronically ill HEENT: PERRL/EOMI, Normal ENT Inspection, Pharynx Normal, Moist Mucous Membranes Neck: Full Range of Motion, Normal Inspection, Non Tender, Supple Respiratory: Chest Non Tender, Lungs Clear, Normal Breath Sounds, No Accessory Muscle Use, No Respiratory Distress Cardiovascular: Regular Rate, Rhythm, No Edema, No Gallop, No JVD, No Murmur Gastrointestinal: Normal Bowel Sounds, No Organomegaly, No Pulsatile Mass, Non Tender, Soft Back: Normal Inspection, No CVA Tenderness, No Vertebral Tenderness Extremity: Normal Capillary Refill, Normal Inspection, Normal Range of Motion (except right foot in boot and brace), Non Tender, No Calf Tenderness, No Pedal Edema Neurologic/Psychiatric: Alert, Oriented x3, No Motor/Sensory Deficits, 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 FIM Transfers Therapy Code Descriptions/Definitions Functional [place] Measure: 0=Not Assessed/NA 4=Minimal Assistance 1=Total Assistance 5=Supervision or Setup 2=Maximal Assistance 6=Modified [place] 3=Moderate Assistance 7=Complete [place] Therapy Quality Codes: 6 Independent with activity with or without an assistive device 5 Patient requires set up or clean up by helper. Patient completes activity by themselves 4 Supervision or touching assist (CGA). [place] provide cues , steadying assist 3 The helper provides less than half the effort to complete the activity 2 The helper provides more than half the effort to complete the activity 1 Dependent. The helper does all the effort to complete an activity 7 Patient refused to complete or attempt activity 9 The patient did not perform the activity before the current illness or injury 88 Not attempted due to Medical conditions or safety concerns Roll Left to Right (QC): 6 Sit to Lying (QC): 6 Sit to Stand (QC): 3 Chair/Emn-zh-Iysph Xfer(QC): 3 Car Transfer (QC): 3 Gait Training Does the Patient Walk?: Yes Gait (FIM): 4 Distance: 5 x5 Walk 10 feet (QC): 88 Walk 50 ft with 2 Turns(QC): 88 Walk 150 ft (QC): 88 Walking 10ft/uneven surface-QC: 88 Gait Level of Assist: 3 Gait Persons Needed: 1 Gait Assistive Device: FWW Wheelchair Training Does the Pt Use a Wheelchair?: Yes Distance: 50' Wheelchair Level of Assist: 5 Wheel 50 ft with 2 turns (QC): 4 Type of Wheelchair: Manual Stair Training 1 Step (curb) (QC): 88 4 Steps (QC): 88 12 Steps (QC): 88 Balance Picking up an Object (QC): 88 ADL-Treatment Eating (QC): 6 Oral Hygiene (QC): 6 (Completes seated in w/c at sink. Able to manipulate with good coordination.) Shower/Bathe Self (QC): 4 (Intermittent assist: pt requires assist drying LE due to fatigue. CGA during transfers to commode for showering) Upper Body Dressing (QC): 6 Lower Body Dressing (QC): 2 (Assist required to doff/ don R CAM boot. Pt requires threading of R LE and CGA in stance during pulling up.) On/Off Footwear (QC): 2 (Pt able to hold R foot off ground in order to place CAM boot on. Pt requires max A for placement; pt able to state discomfort with velcro strap on foot and direct treatment.) Toileting Hygiene (QC): 5 (SBA) Toilet Transfer (QC): 4 (CGA during stance/ getting off and on commode.) Assessment/Plan Assessment and Plan Assess & Plan/Chief Complaint Assessment: Right tib-fib fracture now non-weight bearing Falls frequently at home RLS Neuropathy Plan: Monitor pain Lovenox IRF protocol Needs intermediate designer OAC to prevent clots when DC (1) Fracture of distal end of right fibula Status: Acute (2) Leukocytosis Status: Acute (3) Depression Status: Chronic Qualifiers: Depression Type: unspecified Qualified Codes: F32.9 - Major depressive disorder, single episode, unspecified (4) Neuropathy Status: Chronic (5) Restless leg syndrome Status: Chronic (6) Debility Status: Acute (7) Hypotension Status: Acute Qualifiers: Hypotension type: unspecified hypotension type Qualified Codes: I95.9 - Hypotension, unspecified (8) Elevated lactic acid level Status: Acute (9) Status post total right knee replacement Status: Chronic (10) Fall on same level Status: Acute Qualifiers: Encounter type: initial encounter Qualified Codes: W18.30XA - Fall on same level, unspecified, initial encounter (11) Hypotension Status: Acute Qualifiers: Hypotension type: idiopathic hypotension Qualified Codes: I95.0 - Idiopathic hypotension (12) Lower back pain Status: Chronic (13) Radiculopathy Status: Chronic Qualifiers: Spinal region: unspecified Qualified Codes: M54.10 - Radiculopathy, site unspecified (14) Syncope Status: Acute SAMAN BALDERAS DO Jan 04, 2019 08:28
[2019-01-04] MEDS: CELECOXIB 100 MG (CeleBREX) CAP PO SCH ×2 (08:38→20:18)
[2019-01-04] MEDS: CYANOCOBALAMIN 1,000 MCG (VITAMIN B-12) TABLET PO SCH (08:38)
[2019-01-04] MEDS: VITAMIN D3 5,000 UNITS (CHOLECALCIFEROL ) CAPSULE PO SCH (08:38)
[2019-01-04] MEDS: PROPRANOLOL 20 MG (INDERAL) TABLET PO SCH ×2 (08:40→20:18)
--- NOTE | 2019-01-04 11:47 | Physical Therapy Daily Note ---
PT Daily Note-Current Subjective Pt. shares his history that he has had neck and back problems with deterioration for quite some time as well as increased pain and paresthesia and sensation issues in his LEs that have also contributed to his multiple falls and problems. Pt. states he had a TKR on right but it has never been stable and has had left knee problems for quite some time and has been told he needs TKR on left as well. Pt. states that for years he has used the scooter at [facility] and has been disabled for quite some time. Pt. states he own his home and would like to have a ramp installed and would like to have an electric scooter but at minimum a wheelchair Pain Numeric Pain Scale: 7 Location: Right Location Body Site: Knee (and below) Pain Description: Heavy Mental Status Patient Orientation: Normal For Age Attachments: Other-See Comments (boot R foot) Transfers Therapy Quality Codes: 6 Independent with activity with or without an assistive device 5 Patient requires set up or clean up by helper. Patient completes activity by themselves 4 Supervision or touching assist (CGA). [place] provide cues , steadying assist 3 The helper provides less than half the effort to complete the activity 2 The helper provides more than half the effort to complete the activity 1 Dependent. The helper does all the effort to complete an activity 7 Patient refused to complete or attempt activity 9 The patient did not perform the activity before the current illness or injury 88 Not attempted due to Medical conditions or safety concerns Transfers (B, C, W/C): 5 Roll Left to Right (QC): 6 Sit to Lying (QC): 6 Sit to Stand (QC): 5 Chair/Ozx-yg-Mtwuq Xfer(QC): 5 much practice on bed to w/c to bed to chair also having pt. turn and move w/c so he can enter and exit toward strong/good/ left side every TRF for safety, pt. has difficulty NWBing RLE as LLE knee is also weak and has poor proprioception Weight Bearing Right Lower Extremity: Right Non Weight Bearing Gait Training Gait Assistive Device: FWW 3-4 ft poor control, weaves etc mod to min assist Wheelchair Training Does the Pt Use a Wheelchair?: Yes Wheelchair Distance: 3=150 ft Wheel 50 ft with 2 turns (QC): 5 Wheel 150 ft (QC): 5 Type of Wheelchair: Manual pt. very tall and needs seat cushion to facilitate ease of sit to stand and TRF. pt. also encouraged to wear a shoe of substance and taller sole so he can attempt to even the leg lengths so he would be less likely to wt bear on right. Pt. 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 would not be safe in home environment attempting to walk with FWW NWB RLE at home secondary to instability of LLE. It seems pt. is a good candidate for manual w/c and ramp until he is allowed wt bearing on RLE PT Short Term Goals Short Term Goals Time Frame: Jan 08, 2019 Gait Distance Comment: 20' Gait Assistive Device: FWW Wheelchair Distance: 50' PT Community Resource Consultant Goals Correction Goals PT Correction Goals Time Frame: Jan 22, 2019 Sit to Lying (QC): 6 Lying-Sitting on Side/Bed(QC): 6 Sit to Stand (QC): 4 (SBA) Roll Left to Right (QC): 6 Chair/Wej-bp-Ohpic Xfer(QC): 4 (SBA) Car Transfer (QC): 4 (SBA) Distance: 50' Walk 10 feet (QC): 4 (SBA) Walk 10ft-Uneven Surface(QC): 4 (SBA) Walk 50ft with 2 Turns (QC): 4 (SBA) Gait Level of Assist: 4 (SBA) Gait Assistive Device: FWW # of Steps: 4 1 Step (curb) (QC): 4 (SBA) 4 Steps (QC): 4 (SBA) Stairs Level Of Assist: 4 (SBA) PT Plan Treatment/Plan Treatment Plan: Bed Mobility, Concurrent Therapy, Education, Functional Activity [place], Functional Strength, Group Therapy, Gait, Safety, Therapeutic Exercise, Transfers Treatment Duration: Jan 22, 2019 Frequency: At least 5 of 7 days/Wk (IRF) Estimated Hrs Per Day: 1.5 hours per day Patient and/or Family Agrees t: Yes Safety Risks/Education Patient Education: Gait Training, Transfer Techniques, Correct Positioning, W/C Management, Disease Process, Safety Issues Teaching Recipient: Patient Teaching Methods: Demonstration, Discussion Response to Teaching: Verbalize Understanding, Return Demonstration, Reinforcement Needed Time/GCodes Time In: 1045 Time Out: 1145 Total Billed Treatment Time: 60 Total Billed Treatment 1,WCH30m,FA15m,EX15m FINN IRIZARRY PTA Jan 04, 2019 11:47
--- NOTE | 2019-01-04 13:32 | Physical Therapy Daily Note ---
PT Daily Note-Current Subjective Pt. agrees to Rx. Rates pain at 7/10 RLE. States he feels he is ready to go home. Pain Numeric Pain Scale: 7 Location: Right Location Body Site: Knee Pain Description: Ache Mental Status Patient Orientation: Normal For Age Attachments: Other-See Comments (cam boot) Transfers Therapy Quality Codes: 6 Independent with activity with or without an assistive device 5 Patient requires set up or clean up by helper. Patient completes activity by themselves 4 Supervision or touching assist (CGA). [place] provide cues , steadying assist 3 The helper provides less than half the effort to complete the activity 2 The helper provides more than half the effort to complete the activity 1 Dependent. The helper does all the effort to complete an activity 7 Patient refused to complete or attempt activity 9 The patient did not perform the activity before the current illness or injury 88 Not attempted due to Medical conditions or safety concerns TRFs toward left and right w/c to bed to w/c all SBA no incident Weight Bearing Right Lower Extremity: Right Non Weight Bearing Wheelchair Training Type of Wheelchair: Manual fig 8s , braking, narrow spaces, backing and forward good control Exercises Supine Ex: Bridging, Rolling, Scooting, Hip abd/add (sidelying bilat) clam shells x 10 bilat Assessment Current Status: Good Progress with manual w/c and ramp or total assist up the steps and SBA pt. could likely manage at home PT Short Term Goals Short Term Goals Time Frame: Jan 08, 2019 Gait Distance Comment: 20' Gait Assistive Device: FWW Wheelchair Distance: 50' PT Prison Goals Prison Goals PT Prison Goals Time Frame: Jan 22, 2019 Sit to Lying (QC): 6 Lying-Sitting on Side/Bed(QC): 6 Sit to Stand (QC): 4 (SBA) Roll Left to Right (QC): 6 Chair/Yws-ca-Nzpuu Xfer(QC): 4 (SBA) Car Transfer (QC): 4 (SBA) Distance: 50' Walk 10 feet (QC): 4 (SBA) Walk 10ft-Uneven Surface(QC): 4 (SBA) Walk 50ft with 2 Turns (QC): 4 (SBA) Gait Level of Assist: 4 (SBA) Gait Assistive Device: FWW # of Steps: 4 1 Step (curb) (QC): 4 (SBA) 4 Steps (QC): 4 (SBA) Stairs Level Of Assist: 4 (SBA) PT Plan Treatment/Plan Treatment Plan: Continue Plan of Care Treatment Plan: Bed Mobility, Concurrent Therapy, Education, Functional Activity Eitan, Functional Strength, Group Therapy, Gait, Safety, Therapeutic Exercise, Transfers Treatment Duration: Jan 22, 2019 Frequency: At least 5 of 7 days/Wk (IRF) Estimated Hrs Per Day: 1.5 hours per day Patient and/or Family Agrees t: Yes Safety Risks/Education Patient Education: Transfer Techniques, Correct Positioning, W/C Management, Disease Process, Safety Issues Teaching Recipient: Patient Teaching Methods: Demonstration, Discussion Response to Teaching: Verbalize Understanding, Return Demonstration, Reinforcement Needed Time/GCodes Time In: 1305 Time Out: 1335 Total Billed Treatment Time: 30 Total Billed Treatment 1,FA15m EX15m FINN IRIZARRY SPICE FUMIGATOR Jan 04, 2019 13:31
--- NOTE | 2019-01-04 15:17 | NUR ---
Met with patient to complete initial assessment. Patient admitted to ARU on 01/01/19 with diagnosis of minimally displaced fracture right ankle-distal fibula and posterior malleolus. The patient did not require surgery. He is currently NWB to [facility] and has a CAM boot in place. Prior to hospitalization he was living at home with his . The patient reported that currently his son and dsqoopts-tj-ajx and their children are living with him and his . He reported he was independent with ADLs and functional mobility, using a SPC. He identified his spouse, Keelye Bernabe, has his primary contact, phone # . Patient confirmed Dr. Mcpherson is his PCP. Patient's preferred pharmacy is [facility] in [place]. Patient confirmed Medicare as primary insurance with secondary insurance, [employer]. The purpose of the weekly meeting was discussed and the patient verbalized understanding. The patient did report that Dr. Mcpherson mentioned discharge on 01/05/19. The patient reported he has a bath chair, grab bars in the bathroom, toilet riser, SPC and a FWW at home. Patient also reported that his son works [id number] and that is [id number] and work during the day, so someone would be home to assist patient as needed. Patient stated he may need a wheelchair at discharge, but that it would have to be narrow enough to fit through the doorways. Patient has 4 entry steps with railing and at this time is unable to ascend or descend steps; therefore, patient may require a ramp to be installed prior to discharging from the ARU. Will discuss this further with the patient and his spouse. Patient stated he is agreeable to [facility] if necessary. Will meet with rehab team to discuss discharge recommendations.
--- NOTE | 2019-01-04 17:35 | Progress Note ---
Subjective Date Seen by a Provider: Jan 04, 2019 Time Seen by a Provider: 08:25 Subjective/Events-last exam Fwup hypotension, right distal fibular fracture, weakness. C/O right leg swelling. Not comfortable in our beds because does not fit in them so wants to go home. Objective Exam Vital Signs Date Time Temp Pulse Resp B/P (MAP) Pulse Ox O2 Delivery O2 Flow Rate FiO2 01/04/19 09:00 Room Air 01/04/19 05:40 35.5 80 18 154/76 (102) 97 Room Air 01/03/19 20:10 Room Air I & O 01/04/19 07:00 Intake Total 950 ml Output Total 700 ml Balance 250 ml Capillary Refill : Less Than 3 SecondsLess Than 3 Seconds General Appearance: No Apparent Distress Extremity: No Calf Tenderness, Pedal Edema Neurologic/Psychiatric: Alert, Oriented x3 Skin: Other (bllisters to RLE with bandages in palce) Results Lab Laboratory Tests 01/04/19 06:12: White Blood Count 10.4, Red Blood Count 3.91L, Hemoglobin 12.5L, Hematocrit 37L, Mean Corpuscular Volume 94, Mean Corpuscular Hemoglobin 32, Mean Corpuscular Hemoglobin Concent 34, Red Cell Distribution Width 12.6, Platelet Count 251, Mean Platelet Volume 9.4, Neutrophils (%) (Auto) 69, Lymphocytes (%) (Auto) 19, Monocytes (%) (Auto) 11, Eosinophils (%) (Auto) 2, Basophils (%) (Auto) 0, Neutrophils # (Auto) 7.1, Lymphocytes # (Auto) 2.0, Monocytes # (Auto) 1.1H, Eosinophils # (Auto) 0.2, Basophils # (Auto) 0.0, Sodium Level 140, Potassium L evel 3.6, Chloride Level 103, Carbon Dioxide Level 26, Anion Gap 11, Blood Urea Nitrogen 10, Creatinine 0.83, Estimat Glomerular Filtration Rate > 60, BUN/Creatinine Ratio 12, Glucose Level 88, Calcium Level 9.3, Corrected Calcium 9.5, Total Bilirubin 0.6, Aspartate Amino Transf (AST/SGOT) 35H, Alanine Aminotransferase (ALT/SGPT) 30, Alkaline Phosphatase 123, Total Protein 7.1, Albumin 3.8 Assessment/Plan Assessment/Plan Assess & Plan/Chief Complaint 1. Hypotension--resolved--now hypertensive so will start back low dose propranolol for both BP and Essential Tremor 2. Right Distal Fibular Fracture--continue with PT/OT for safety on DC to home 3. Polypharmacy--have DCed lyrica and amitriptyline Clinical Quality Measures DVT/VTE Risk/Contraindication: Risk Factor Score Per Nursin RFS Level Per Nursing on Admit: 4+=Very High IBRAHIMA FIELDS DO Jan 04, 2019 17:35
[2019-01-04 17:40] VITALS: BP 152/81
[2019-01-04] MEDS: ENOXAPARIN 40 MG/0.4 ML (LOVENOX) SYR SC SCH (20:18)
[2019-01-04] MEDS: ALLOPURINOL 100 MG (ZYLOPRIM) TAB PO SCH (20:18)
[2019-01-04] MEDS: DULoxetine 30 MG (CYMBALTA) CAP PO SCH (20:18)
[2019-01-05] MEDS: oxyCODONE/APAP 5/325MG (PERCOCET 5) TABLET PO PRN ×4 (03:16→21:34)
[2019-01-05 05:26] VITALS: BP 146/82
[2019-01-05] MEDS: LEVOTHYROXINE 50 MCG (LEVOTHROID) TAB PO SCH (06:57)
[2019-01-05 08:00] VITALS: BP 146/74
--- NOTE | 2019-01-05 08:00 | NUR ---
AT BEDSIDE AND STATES FEELS THEY ARE NOT PREPARED AT HOME FOR DISCHARGE FAR EQUIPMENT IS CONCERNED. SOLID PROPELLANT PROCESSOR WILL BE NOTIFIED.
[2019-01-05] MEDS: PROPRANOLOL 20 MG (INDERAL) TABLET PO SCH ×2 (08:56→20:16)
[2019-01-05] MEDS: CELECOXIB 100 MG (CeleBREX) CAP PO SCH ×2 (08:56→20:16)
[2019-01-05] MEDS: VITAMIN D3 5,000 UNITS (CHOLECALCIFEROL ) CAPSULE PO SCH (08:56)
[2019-01-05] MEDS: CYANOCOBALAMIN 1,000 MCG (VITAMIN B-12) TABLET PO SCH (08:56)
--- NOTE | 2019-01-05 08:56 | Physical Therapy Daily Note ---
PT Daily Note-Current Subjective Patient in bed pre tx, agrees to PT, has 8/10 pain in right leg but states he cannot have pain meds for about another hour. Appearance Patient in bed post tx with nurse call, phone, tray, all needs met. Mental Status Patient Orientation: Person, Place, Situation boot right foot Transfers SCALE: Activities may be completed with or without assistive devices. 2-Iozlkefpon-ndygbjg completes the activity by him/herself with no assistance from a helper. 5-Set-up or Clean-up Assistance-helper sets up or cleans up; patient completes activity. [place] assists only prior to or following the activity. 4-Supervision or Touching Assistance-helper provides verbal cues and/or touching/steadying and/or contact guard assistance as patient completes activity. Assistance may be provided throughout the activity or intermittently. 3-Partial/Moderate Assistance-helper does LESS THAN HALF the effort. [place] lifts, holds or supports trunk or limbs, but provides less than half the effort. 2-Substantial/Maximal Assistance-helper does MORE THAN HALF the effort. [place] lifts or holds trunk or limbs and provides more than half the effort. 5-Eryjotuzt-kpwkzc does ALL the effort. Patient does none of the effort to complete the activity. Or, the assistance of 2 or more helpers is required for the patient to complete the activity. If activity was not attempted, code reason: 7-Patient Refused. 9-Not Applicable-not attempted and the patient did not perform the activity before the current illness, exacerbation or injury. 10-Not Attempted due to Environmental Limitations-(lack of equipment, weather restraints, etc.). 88-Not Attempted due to Medical Conditions or Safety Concerns. Transfers (B, C, W/C): 6 Roll Left to Right (QC): 6 Sit to Lying (QC): 6 Sit to Stand (QC): 6 Chair/Hzp-bj-Lveif Xfer(QC): 6 Car Transfer (QC): 6 Patient performs bed mobility with mod I, supine <-> sit with mod I, sit <-> stand with mod I, transfers with mod I, car transfer mod I. Patient performs transfers slow but has good hand placement and is aware of safety issues. Weight Bearing Right Lower Extremity: Right Non Weight Bearing Gait Training Distance: 10' Walk 10 feet (QC): 4 Walk 50 ft with 2 Turns(QC): 88 Walk 150 ft (QC): 88 Walking 10ft/uneven surface-QC: 88 Gait Persons Needed: 1 Gait Assistive Device: FWW Patient can ambulate 10' with a rolling walker with CGA. He is compliant with his weight bearing status but can only go a short distance and has poor foot clearance on the left side, he is not safe to ambulate over an uneven surface. Wheelchair Training Does the Pt Use a Wheelchair?: Yes Distance: 150'x2 Wheel 50 ft with 2 turns (QC): 6 Wheel 150 ft (QC): 6 Type of Wheelchair: Manual Stair Training 1 Step (curb) (QC): 88 4 Steps (QC): 88 12 Steps (QC): 88 Patient did not perform steps because he cannot hop high enough to get his left leg onto the step. Balance Picking up an Object (QC): 88 Exercises Seated Therapy Exercises: Long arc quads (with 2# ankle weight on the left side, alternating for 5 min), Hamstring Curls (with RTB), Hip abd/add (with RTB and pillow) Seated Reps: 20 NuStep Minutes: 15 NuStep Workload: 5 (right leg not used) Treatments bed mobility and transfers, ambulation, WC mobility, LE exercise Assessment Current Status: Fair Progress improved transfers PT Short Term Goals Short Term Goals Time Frame: Jan 08, 2019 Gait Distance Comment: 20' Gait Assistive Device: FWW Wheelchair Distance: 50' PT Test Man Goals Test Man Goals PT Residential Goals Time Frame: Jan 22, 2019 Sit to Lying (QC): 6 (met) Lying-Sitting on Side/Bed(QC): 6 (met) Sit to Stand (QC): 4 (met) Roll Left to Right (QC): 6 (met) Chair/Wgp-vs-Huijc Xfer(QC): 4 (met) Car Transfer (QC): 4 (met) Distance: 50' Walk 10 feet (QC): 4 (met) Walk 10ft-Uneven Surface(QC): 4 (SBA) Walk 50ft with 2 Turns (QC): 4 Gait Level of Assist: 4 (SBA) Gait Assistive Device: FWW # of Steps: 4 1 Step (curb) (QC): 4 (SBA) 4 Steps (QC): 4 (SBA) Stairs Level Of Assist: 4 (SBA) PT Plan Problem List Problem List: Activity Tolerance, Functional Strength, Safety, Balance, Gait, Transfer, Bed Mobility, ROM Treatment/Plan Treatment Plan: Continue Plan of Care Treatment Plan: Bed Mobility, Concurrent Therapy, Education, Functional Activity Eitan, Functional Strength, Group Therapy, Gait, Safety, Therapeutic Exercise, Transfers Treatment Duration: Jan 22, 2019 Frequency: At least 5 of 7 days/Wk (IRF) Estimated Hrs Per Day: 1.5 hours per day Patient and/or Family Agrees t: Yes Safety Risks/Education Patient Education: Gait Training, Transfer Techniques, Steps, Correct Positioning, Safety Issues Teaching Recipient: Patient Teaching Methods: Demonstration, Discussion Response to Teaching: Reinforcement Needed Time/GCodes Time In: 0800 Time Out: 0900 Total Billed Treatment Time: 60 Total Billed Treatment 1 visit EX 30' [facility] 10' FA 20' KARO CAROL[place] PT Jan 05, 2019 08:56
--- NOTE | 2019-01-05 09:36 | Occupational Ther Daily Note ---
OT Current Status-Daily Note Subjective Pt seen supine in bed, nursing present. Pt states 8/10 pain in R ankle and knee. Pt states he would like to go home today if possible. Upon questioning what pt needs to work on, pt states he has good supports at home ( at night, daughter in law during the day), and pt states he is feeling confident in abil ities to transfer self and complete ADL tasks with assist from family when needed. Pt states he has been sleeping poorly within bed here. Mental Status/Objective Patient Orientation: Normal For Age Attachments: Other-See Comments DARLINE FREED ADL-Treatment Therapy Code Descriptions/Definitions Functional [place] Measure: 0=Not Assessed/NA 4=Minimal Assistance 1=Total Assistance 5=Supervision or Setup 2=Maximal Assistance 6=Modified [place] 3=Moderate Assistance 7=Complete IndependenceSCALE: Activities may be completed with or without assistive devices. 8-Crcccrsvjm-joztvev completes the activity by him/herself with no assistance from a helper. 5-Set-up or Clean-up Assistance-helper sets up or cleans up; patient completes activity. [place] assists only prior to or following the activity. 4-Supervision or Touching Assistance-helper provides verbal cues and/or touching/steadying and/or contact guard assistance as patient completes activity. Assistance may be provided throughout the activity or intermittently. 3-Partial/Moderate Assistance-helper does LESS THAN HALF the effort. [place] lifts, holds or supports trunk or limbs, but provides less than half the effort. 2-Substantial/Maximal Assistance-helper does MORE THAN HALF the effort. [place] lifts or holds trunk or limbs and provides more than half the effort. 8-Ajkikkuxo-jidfgj does ALL the effort. Patient does none of the effort to complete the activity. Or, the assistance of 2 or more helpers is required for the patient to complete the activity. If activity was not attempted, code reason: 7-Patient Refused. 9-Not Applicable-not attempted and the patient did not perform the activity before the current illness, exacerbation or injury. 10-Not Attempted due to Environmental Limitations-(lack of equipment, weather restraints, etc.). 88-Not Attempted due to Medical Conditions or Safety Concerns. Eating (QC): 6 (Pt brings water to mouth/ drinks.) Toileting Hygiene (QC): 5 (SUP) Toilet Transfer (QC): 5 (SUP- pt utilizes grab bars by side of toilet. Able to transfer with L leg down, maintains WB status. ) Other Treatment Pt sweaty post-PT treatment. Pt declines need to change clothing or go outside for therapy session. Pt states he would like to lay down for a while prior to going to therapy gym. Pt given energy conservation hand out and talk through. Pt completes UE theraband exercises with red theraband with handout for demonstration. Pt requires min cues for UE placement and positioning. Pt completes 15 reps of each exercises bilaterally focusing on biceps, triceps, back, external/ internal shoulder rotators. Pt completes with sweating noted. Pt requires cues for breathing during activity, return demonstrates with good abilities. Pt completes transfer with SBA from bed to w/c, states bed is about same height as w/c cushion at home. Pt safely transfers, able to navigate room/ halls with w/c. Pt completes 10 min arm bike with 25 chapa resistance and built- up handles for comfort due to arthritis. Pt completes with good endurance, limited c/o fatigue. Pt transfers w/c to mat with safety and SBA. Pt completes UE ROM/ reaction time activity and core strengthening by batting ball with weighted racecourse barrier attendant and forth with good accuracy but limited endurance. Pt states core/ balance is "off", pt completes abdominal twists x15 before taking rest with weighted bar. Pt completes 15x more abdominal twists, completes transfer to w/c with SBA. Returns to bed SBA, call light in reach, all needs met. Education OT Patient Education: Energy conservation, Exercise program, Home exercise program, Modified ADL techniques, Purpose of tx/functional activities, Reviewed precautions, Rehab process Teaching Recipient: Patient Teaching Methods: Demonstration, Handout, Discussion Response to Teaching: Verbalize Understanding, Return Demonstration OT Short Term Goals Short Term Goals Grooming(FIM): 6 Lower Body Dressing(FIM): 4 Tub Transfer(FIM): 5 1=Demonstrate adherence to instructed precautions during ADL tasks. 2=Patient will verbalize/demonstrate understanding of assistive devices/modifications for ADL. 3=Patient will improve strength/tolerance for activity to enable patient to perform ADL's. OT Jail Goals [employer]ing Manufacturing Technician Goals Time Frame: Jan 15, 2019 Eating (QC): 6 Oral Hygiene (QC): 6 Shower/Bathe Self (QC): 6 Upper Body Dressing (QC): 6 Lower Body Dressing (QC): 4 On/Off Footwear (QC): 4 Toileting Hygiene (QC): 6 Toilet/Commode Transfer (QC): 6 Additional Goals: 1-Demonstrate ADL Tasks, 2-Verbalize Understanding, 3-ImproveStrength/Eitan 1=Demonstrate adherence to instructed precautions during ADL tasks. 2=Patient will verbalize/demonstrate understanding of assistive devices/modifications for ADL. 3=Patient will improve strength/tolerance for activity to enable patient to perform ADL's. OT Education/Plan Problem List/Assessment Assessment: Decreased Activ Tolerance, Impaired Funct Balance, Impaired I ADL's, Impaired Self-Care Skills Discharge Recommendations Plan/Recommendations: Continue POC Therapy Discharge Recommendati: Intermittent Supervision Equpiment Recommendations-D/C: Heel Cutter, Other, See Comments (long handled sponge.) Treatment Plan/Plan of Care Treatment,Training & Education: Yes Patient would benefit from OT for education, treatment and training to promote independence in ADL's, mobility, safety and/or upper extremity function for ADL's. Plan of Care: ADL Retraining, Caregiver Training, Concurrent Therapy, Functional Mobility, Group Exercise/Act as Ind, Orthotic Fitting/Training, UE Funct Exercise/Act, W/C Management Training Treatment Duration: Jan 15, 2019 Frequency: At least 5 of 7 days/Wk (IRF) Estimated Hrs Per Day: 1.5 hours per day Agreement: Yes Rehab Potential: Fair Time/GCodes Start Time: 09:00 Stop Time: 10:00 Total Time Billed (hr/min): 60 Billed Treatment Time 1 ADL (15), EX x3 (45) Total 60 min DICKSON SAM OTR Jan 05, 2019 09:36
--- NOTE | 2019-01-05 09:38 | PM&R Progress Note ---
Subjective HPI/CC On Admission Date Seen by Provider: Jan 05, 2019 Time Seen by Provider: 08:15 Chief complaint: Acute tibiafibula fracture nonweightbearing History of present illness: This is a 58-year-old white male with Dr. Mcpherson who has a past medical history of multiple falls in the past maintained on Lyrica and Amitriptyline along with oxycodone who presented to the ER after sustaining a fall when he got up to go to the bathroom. He was found to have significant hypotension requiring aggressive IV fluids noted elevated lactic acid due to volume depletion which has since resolved after supportive care in the ICU. No evidence of any type of bacterial infection causing sepsis noted. He is maintained on oxycodone for chronic pain syndrome and he doesn't really move around too much at home because of the significant falls he has had in the past and continues to have. His of 38 years is at the bedside. 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 Patient is 6 foot 6 so it is imperative to give the patient skills in order to go home to help with transfers and less and the burden on caregivers. Subjective/Events-last exam Pt feeling pretty good. Needs a wheelchair. Blister on the foot will be monitored closely. Inderal started. Lovenox for DVT prophylaxis. Check meds and labs Conferred with RN Reviewed therapy notes Review of Systems Musculoskeletal: leg pain, foot pain Objective Exam Vital Signs Vital Signs Date Time Temp Pulse Resp B/P (MAP) Pulse Ox O2 Delivery O2 Flow Rate FiO2 01/05/19 17:32 37.4 80 18 131/75 (93) 98 Room Air Capillary Refill : Less Than 3 SecondsLess Than 3 Seconds General Appearance: No Apparent Distress, WD/WN, Chronically ill HEENT: PERRL/EOMI, Normal ENT Inspection, Pharynx Normal, Moist Mucous Membranes Neck: Full Range of Motion, Normal Inspection, Non Tender, Supple Respiratory: Chest Non Tender, Lungs Clear, Normal Breath Sounds, No Accessory Muscle Use, No Respiratory Distress Cardiovascular: Regular Rate, Rhythm, No Edema, No Gallop, No JVD, No Murmur Gastrointestinal: Normal Bowel Sounds, No Organomegaly, No Pulsatile Mass, Non Tender, Soft Back: Normal Inspection, No CVA Tenderness, No Vertebral Tenderness Extremity: Normal Capillary Refill, Normal Inspection, Normal Range of Motion ( except right foot in boot and brace), Non Tender, No Calf Tenderness, No Pedal Edema Neurologic/Psychiatric: Alert, Oriented x3, No Motor/Sensory Deficits, lithographic platemaker II- XII Norm as Tested, Depressed Affect Skin: Normal Color, Warm/Dry Lymphatic: No Adenopathy Results/Procedures Lab Patient resulted labs reviewed. FIM Transfers Therapy Code Descriptions/Definitions Functional [place] Measure: 0=Not Assessed/NA 4=Minimal Assistance 1=Total Assistance 5=Supervision or Setup 2=Maximal Assistance 6=Modified [place] 3=Moderate Assistance 7=Complete IndependenceSCALE: Activities may be completed with or without assistive devices. 6-Hagvnijfuy-hxxytmt completes the activity by him/herself with no assistance from a helper. 5-Set-up or Clean-up Assistance-helper sets up or cleans up; patient completes activity. [place] assists only prior to or following the activity. 4-Supervision or Touching Assistance-helper provides verbal cues and/or touching/steadying and/or contact guard assistance as patient completes activity. Assistance may be provided throughout the activity or intermittently. 3-Partial/Moderate Assistance-helper does LESS THAN HALF the effort. [place] lifts, holds or supports trunk or limbs, but provides less than half the effort. 2-Substantial/Maximal Assistance-helper does MORE THAN HALF the effort. [place] lifts or holds trunk or limbs and provides more than half the effort. 2-Nufxsvjqp-phavxn does ALL the effort. Patient does none of the effort to complete the activity. Or, the assistance of 2 or more helpers is required for the patient to complete the activity. If activity was not attempted, code reason: 7-Patient Refused. 9-Not Applicable-not attempted and the patient did not perform the activity before the current illness, exacerbation or injury. 10-Not Attempted due to Environmental Limitations-(lack of equipment, weather restraints, etc.). 88-Not Attempted due to Medical Conditions or Safety Concerns. Transfers (B, C, W/C) (FIM): 6 Roll Left to Right (QC): 6 Sit to Lying (QC): 6 Sit to Stand (QC): 6 Chair/Wrx-pr-Kadjk Xfer(QC): 6 Car Transfer (QC): 6 Gait Training Does the Patient Walk?: Yes Gait (FIM): 4 Distance: 10' Walk 10 feet (QC): 4 Walk 50 ft with 2 Turns(QC): 88 Walk 150 ft (QC): 88 Walking 10ft/uneven surface-QC: 88 Gait Level of Assist: 3 Gait Persons Needed: 1 Gait Assistive Device: FWW Wheelchair Training Does the Pt Use a Wheelchair?: Yes Wheelchair Distance: 3=150 ft Distance: 150'x2 Wheelchair Level of Assist: 5 Wheel 50 ft with 2 turns (QC): 6 Wheel 150 ft (QC): 6 Type of Wheelchair: Manual Stair Training 1 Step (curb) (QC): 88 4 Steps (QC): 88 12 Steps (QC): 88 Balance Picking up an Object (QC): 88 ADL-Treatment Eating (QC): 6 (Pt brings water to mouth/ drinks.) Oral Hygiene (QC): 6 Bathing Location: L Arm, R Arm, L Upper Leg, R Upper Leg, L Lower Leg (including foot), R Lower Leg (including foot), Chest, Abdomen, Buttocks, Perineal Area Shower/Bathe Self (QC): 4 Upper Body Dressing (QC): 5 Lower Body Dressing (QC): 4 (footwear (QC) 3) On/Off Footwear (QC): 2 (Pt able to hold R foot off ground in order to place CAM boot on. Pt requires max A for placement; pt able to state discomfort with velcro strap on foot and direct treatment.) Toileting Hygiene (QC): 5 (SUP) Toilet Transfer (QC): 5 (SUP- pt utilizes grab bars by side of toilet. Able to transfer with L leg down, maintains WB status. ) Assessment/Plan Assessment and Plan Assess & Plan/Chief Complaint Assessment: Right tib-fib fracture now non-weight bearing Falls frequently at home RLS Neuropathy Plan: Monitor pain Lovenox IRF protocol Needs care home OAC to prevent clots when DC (1) Fracture of distal end of right fibula Status: Acute (2) Leukocytosis Status: Acute (3) Depression Status: Chronic Qualifiers: Depression Type: unspecified Qualified Codes: F32.9 - Major depressive disorder, single episode, unspecified (4) Neuropathy Status: Chronic (5) Restless leg syndrome Status: Chronic (6) Debility Status: Acute (7) Hypotension Status: Acute Qualifiers: Hypotension type: unspecified hypotension type Qualified Codes: I95.9 - Hypotension, unspecified (8) Elevated lactic acid level Status: Acute (9) Status post total right knee replacement Status: Chronic (10) Fall on same level Status: Acute Qualifiers: Encounter type: initial encounter Qualified Codes: W18.30XA - Fall on same level, unspecified, initial encounter (11) Hypotension Status: Acute Qualifiers: Hypotension type: idiopathic hypotension Qualified Codes: I95.0 - Idiopathic hypotension (12) Lower back pain Status: Chronic (13) Radiculopathy Status: Chronic Qualifiers: Spinal region: unspecified Qualified Codes: M54.10 - Radiculopathy, site unspecified (14) Syncope Status: Acute SAMAN BALDERAS DO Jan 05, 2019 09:38
--- NOTE | 2019-01-05 10:35 | NUR ---
Pastoral care visit.
--- NOTE | 2019-01-05 11:37 | NUR ---
Met with patient and his , Keeley, regarding discharge planning. Currently, the patient is non-weight bearing to RLE. He does have 3 steps with rail to enter the home through the front door and 2 steps with no rail to enter from the side of the house. The patient's is concerned with how to move the patient into and out of the home and is interested in having a ramp installed. In addition, the patient will need a FWW, wheelchair and BSC at discharge. The patient's son is to measure the doorways in the home and give those measurements to rehab staff to ensure a standard wheelchair will work in the home setting. A progress note by Dr. Saeed dated 12/31/18 stated to repeat x-rays of the right ankle in one week. Repeat x-rays have been requested from Dr. Saeed in hopes of being able to change the current NWB status. Awaiting orders from Dr. Saeed. Will continue to work on obtaining equipment and discharge planning as patient is anxious to return home.
--- NOTE | 2019-01-05 11:56 | NUR ---
Informed by RN that Dr. Saeed does not want to repeat the x-ray of the right ankle until 01/07/19 and that the patient will be NWB to RLE for 3 weeks. Informed patient and his and they verbalized understanding.
--- NOTE | 2019-01-05 13:06 | Occupational Ther Daily Note ---
OT Current Status-Daily Note Subjective Pt alert, lying in bed. Pt states that he is on wt. bearing restrictions for another 3 weeks and will possibly be leaving tomorrow. Pt agrees to therapy. Mental Status/Objective Patient Orientation: Person, Place, Time, Situation ADL-Treatment Therapy Code Descriptions/Definitions Functional [place] Measure: 0=Not Assessed/NA 4=Minimal Assistance 1=Total Assistance 5=Supervision or Setup 2=Maximal Assistance 6=Modified [place] 3=Moderate Assistance 7=Complete IndependenceSCALE: Activities may be completed with or without assistive devices. 1-Hjilosuvqy-odwagmy completes the activity by him/herself with no assistance from a helper. 5-Set-up or Clean-up Assistance-helper sets up or cleans up; patient completes activity. [place] assists only prior to or following the activity. 4-Supervision or Touching Assistance-helper provides verbal cues and/or touching/steadying and/or contact guard assistance as patient completes activity. Assistance may be provided throughout the activity or intermittently. 3-Partial/Moderate Assistance-helper does LESS THAN HALF the effort. [place] lifts, holds or supports trunk or limbs, but provides less than half the effort. 2-Substantial/Maximal Assistance-helper does MORE THAN HALF the effort. [place] lifts or holds trunk or limbs and provides more than half the effort. 1-Cznhnztca-wywwmv does ALL the effort. Patient does none of the effort to complete the activity. Or, the assistance of 2 or more helpers is required for the patient to complete the activity. If activity was not attempted, code reason: 7-Patient Refused. 9-Not Applicable-not attempted and the patient did not perform the activity before the current illness, exacerbation or injury. 10-Not Attempted due to Environmental Limitations-(lack of equipment, weather restraints, etc.). 88-Not Attempted due to Medical Conditions or Safety Concerns. Other Treatment 1st treatment-Supine to EOB, independent. Donned L shoe, independent. SPT from EOB to w/c, independent. W/c mobility around [facility], independent. PT took over care of pt in therapy room. All needs met. 2nd treatment-Took over care from PT. SPT from mat table to w/c, independent. Pt completed 4 dowel mahi exercises, beginning with 2# wt pt unable to tolerate wt due to increased back pain so took wt off of dowel mahi. Skilled instruction for correct position and technique to complete dowel mahi exercises. Pt completed 2 sets 15 reps of each. Pt stated that this was wearing him out. Pt then propelled w/c to room and transferred back to bed. After therapy, pt lying in bed with call light/phone in reach. All needs met in room. OT Short Term Goals Short Term Goals Grooming(FIM): 6 Lower Body Dressing(FIM): 4 Tub Transfer(FIM): 5 1=Demonstrate adherence to instructed precautions during ADL tasks. 2=Patient will verbalize/demonstrate understanding of assistive devices/modifications for ADL. 3=Patient will improve strength/tolerance for activity to enable patient to perform ADL's. OT Fur Finisher Tailor Goals Fur Finisher Tailor Goals Time Frame: Jan 15, 2019 Eating (QC): 6 Oral Hygiene (QC): 6 Shower/Bathe Self (QC): 6 Upper Body Dressing (QC): 6 Lower Body Dressing (QC): 4 On/Off Footwear (QC): 4 Toileting Hygiene (QC): 6 Toilet/Commode Transfer (QC): 6 Additional Goals: 1-Demonstrate ADL Tasks, 2-Verbalize Understanding, 3- ImproveStrength/[place] 1=Demonstrate adherence to instructed precautions during ADL tasks. 2=Patient will verbalize/demonstrate understanding of assistive devices/modifications for ADL. 3=Patient will improve strength/tolerance for activity to enable patient to perform ADL's. OT Education/Plan Discharge Recommendations Plan/Recommendations: Continue POC Treatment Plan/Plan of Care Patient would benefit from OT for education, treatment and training to promote independence in ADL's, mobility, safety and/or upper extremity function for ADL's. Plan of Care: ADL Retraining, Caregiver Training, Concurrent Therapy, Functional Mobility, Group Exercise/Act as Ind, Orthotic Fitting/Training, UE Funct Exercise/Act, W/C Management Training Treatment Duration: Jan 15, 2019 Frequency: At least 5 of 7 days/Wk (IRF) Estimated Hrs Per Day: 1.5 hours per day Agreement: Yes Rehab Potential: Fair Time/GCodes Start Time: 12:45 ([id number]) Stop Time: 13:45 ([id number]) Total Time Billed (hr/min): 30 Billed Treatment Time 1 visit-FA 1 (15 min), 1 visit-EX 1 (15 min) MARKOS HINOJOSA Jan 05, 2019 13:06
--- NOTE | 2019-01-05 13:27 | Physical Therapy Daily Note ---
PT Daily Note-Current Subjective Patient in wheelchair pre tx, agrees to PT, has 10/10 pain in right leg. Appearance Patient in therapy gym post tx, has OT right after PT. Mental Status Patient Orientation: Normal For Age boot right leg Transfers SCALE: Activities may be completed with or without assistive devices. 5-Himsjqcgxl-wetzpnu completes the activity by him/herself with no assistance from a helper. 5-Set-up or Clean-up Assistance-helper sets up or cleans up; patient completes activity. [place] assists only prior to or following the activity. 4-Supervision or Touching Assistance-helper provides verbal cues and/or touching/steadying and/or contact guard assistance as patient completes activity. Assistance may be provided throughout the activity or intermittently. 3-Partial/Moderate Assistance-helper does LESS THAN HALF the effort. [place] lifts, holds or supports trunk or limbs, but provides less than half the effort. 2-Substantial/Maximal Assistance-helper does MORE THAN HALF the effort. [place] l ifts or holds trunk or limbs and provides more than half the effort. 2-Xlljxaiem-onfbef does ALL the effort. Patient does none of the effort to complete the activity. Or, the assistance of 2 or more helpers is required for the patient to complete the activity. If activity was not attempted, code reason: 7-Patient Refused. 9-Not Applicable-not attempted and the patient did not perform the activity before the current illness, exacerbation or injury. 10-Not Attempted due to Environmental Limitations-(lack of equipment, weather restraints, etc.). 88-Not Attempted due to Medical Conditions or Safety Concerns. Transfers (B, C, W/C): 6 Roll Left to Right (QC): 6 Sit to Lying (QC): 6 Sit to Stand (QC): 6 Chair/Goz-rr-Irlgh Xfer(QC): 6 Weight Bearing Right Lower Extremity: Right Non Weight Bearing Exercises Supine Ex: Ankle pumps (LLE), Quad Set, Glut sets, Heel Slides Supine Reps: 15 Standing: Hamstring curls (RLE), Heel/toe raises (LLE), 3 way Ex=Flex, Abd, Ext (RLE, extension not performed), Marching (RLE) Standing Reps: 15 Treatments LE exercise Assessment Current Status: Fair Progress better compliance with WB status PT Short Term Goals Short Term Goals Time Frame: Jan 08, 2019 Gait Distance Comment: 20' Gait Assistive Device: FWW Wheelchair Distance: 150'x2 PT Freezer Operator Goals Freezer Operator Goals PT Senior Care Goals Time Frame: Jan 22, 2019 Sit to Lying (QC): 6 (met) Lying-Sitting on Side/Bed(QC): 6 (met) Sit to Stand (QC): 4 (met) Roll Left to Right (QC): 6 (met) Chair/Jdp-co-[place] Xfer(QC): 4 (met) Car Transfer (QC): 4 (met) Distance: 50' Walk 10 feet (QC): 4 (met) Walk 10ft-Uneven Surface(QC): 4 (SBA) Walk 50ft with 2 Turns (QC): 4 Gait Level of Assist: 4 (SBA) Gait Assistive Device: FWW # of Steps: 4 1 Step (curb) (QC): 4 (SBA) 4 Steps (QC): 4 (SBA) Stairs Level Of Assist: 4 (SBA) PT Plan Problem List Problem List: Activity Tolerance, Functional Strength, Safety, Balance, Gait, Transfer, Bed Mobility, ROM Treatment/Plan Treatment Plan: Continue Plan of Care Treatment Plan: Bed Mobility, Concurrent Therapy, Education, Functional Activity [place], Functional Strength, Group Therapy, Gait, Safety, Therapeutic Exercise, Transfers Treatment Duration: Jan 22, 2019 Frequency: At least 5 of 7 days/Wk (IRF) Estimated Hrs Per Day: 1.5 hours per day Patient and/or Family Agrees t: Yes Safety Risks/Education Patient Education: Transfer Techniques, Correct Positioning, Safety Issues Teaching Recipient: Patient Teaching Methods: Demonstration, Discussion Response to Teaching: Reinforcement Needed Time/GCodes Time In: 1300 Time Out: 1330 Total Billed Treatment Time: 30 Total Billed Treatment 1 visit EX 30' KARO CAROLINA PT Jan 05, 2019 13:27
--- NOTE | 2019-01-05 13:28 | NUR ---
Contacted [employer] (Hal Maldonado) regarding installation of ramp. Hal Maldonado requesting patient's name, age and contact information be emailed to him at [email or web address]. This worker talked with patient and his and they request this worker email the requested information. Authorization for release of protected health information signed by patient. This worker emailed requested information after obtaining authorization from patient. Contacted [facility] on [employer] regarding installation of ramp. The agency has low-interest loans and grants available. There is an application process that would have to be completed by the patient and, due to scheduling, the agency would not be able to complete the project sooner than 30 days. This worker will provide the contact information for the person in charge of the application process: Stephanie at [phone]. Contacted [employer] for [facility] regarding installation of ramp. The psychologist military personnel was out of the office so this worker left a call back phone number. Awaiting return phone call to discuss options for ramp installation.
--- NOTE | 2019-01-05 15:25 | NUR ---
Received phone call from patient's spouse. Doorway measurements in the home are as follows: Into bathroom with door removed - 23 inches Into bedroom with door removed - 29 inches Kitchen doorway - 30.5 inches Front doorway - 36 inches
--- NOTE | 2019-01-05 16:04 | NUR ---
Received a return phone call from Hal Maldonado with [employer]. Mr. Maldonado reported he has been in contact with the patient's , Keeley, and is providing an application for her to complete. Once the application is completed, it is taken to the board for review and a decision is then made regarding ramp installation. Mr. Maldonado reported the process does take some time. Will continue to research options for ramp installation.
[2019-01-05 17:32] VITALS: BP 131/75
[2019-01-05] MEDS: ALLOPURINOL 100 MG (ZYLOPRIM) TAB PO SCH (20:16)
[2019-01-05] MEDS: ENOXAPARIN 40 MG/0.4 ML (LOVENOX) SYR SC SCH (20:16)
[2019-01-05] MEDS: DULoxetine 30 MG (CYMBALTA) CAP PO SCH (20:16)
[2019-01-06] MEDS: oxyCODONE/APAP 5/325MG (PERCOCET 5) TABLET PO PRN ×2 (03:35→09:35)
[2019-01-06 05:28] VITALS: BP 123/74
[2019-01-06] MEDS: LEVOTHYROXINE 50 MCG (LEVOTHROID) TAB PO SCH (06:13)
--- NOTE | 2019-01-06 08:00 | NUR ---
STATES SLEPT WELL. AT BEDSIDE. BP STABLE. ANXIOUS TO GO HOME.
[2019-01-06] MEDS: VITAMIN D3 5,000 UNITS (CHOLECALCIFEROL ) CAPSULE PO SCH (08:41)
[2019-01-06] MEDS: CELECOXIB 100 MG (CeleBREX) CAP PO SCH (08:41)
[2019-01-06] MEDS: PROPRANOLOL 20 MG (INDERAL) TABLET PO SCH (08:41)
[2019-01-06] MEDS: CYANOCOBALAMIN 1,000 MCG (VITAMIN B-12) TABLET PO SCH (08:41)
--- NOTE | 2019-01-06 08:46 | Physical Therapy Daily Note ---
PT Daily Note-Current Subjective Pts. present and very supportive. Pt. states repeatedly that he wants to go home today. States he cannot sleep here at all and needs to be in his own bed for good sleep. Pts. points out that the ramp is not in place and he cannot wt bear on RLE. Pt. insists he can TRF from floor by sliding backwards on his bottom and lift self into w/c. Pt. invited to demonstrate this and does so, see below. Therapists share with pt. and that leaving today may be difficult unless all his needed equipment can be acquired Pain Location: No Pain Reported Mental Status Patient Orientation: Normal For Age Attachments: Other-See Comments (cam boot RLE) Transfers SCALE: Activities may be completed with or without assistive devices. 3-Zfqoxypsxj-fzkiykh completes the activity by him/herself with no assistance from a helper. 5-Set-up or Clean-up Assistance-helper sets up or cleans up; patient completes activity. Candler assists only prior to or following the activity. 4-Supervision or Touching Assistance-helper provides verbal cues and/or touching/steadying and/or contact guard assistance as patient completes activity. Assistance may be provided throughout the activity or intermittently. 3-Partial/Moderate Assistance-helper does LESS THAN HALF the effort. Candler lifts, holds or supports trunk or limbs, but provides less than half the effort. 2-Substantial/Maximal Assistance-helper does MORE THAN HALF the effort. Candler lifts or holds trunk or limbs and provides more than half the effort. 3-Ltfcqneee-rzxzuw does ALL the effort. Patient does none of the effort to complete the activity. Or, the assistance of 2 or more helpers is required for the patient to complete the activity. If activity was not attempted, code reason: 7-Patient Refused. 9-Not Applicable-not attempted and the patient did not perform the activity before the current illness, exacerbation or injury. 10-Not Attempted due to Environmental Limitations-(lack of equipment, weather restraints, etc.). 88-Not Attempted due to Medical Conditions or Safety Concerns. Transfers (B, C, W/C): 6 Roll Left to Right (QC): 6 Sit to Lying (QC): 6 Sit to Stand (QC): 6 Chair/Idr-sw-Gjpzn Xfer(QC): 6 Car Transfer (QC): 6 Weight Bearing Right Lower Extremity: Right Non Weight Bearing Gait Training Does the Patient Walk?: Yes Gait: 4 Walk 10 feet (QC): 4 Walk 50 ft with 2 Turns(QC): 88 Walk 150 ft (QC): 88 Walking 10ft/uneven surface-QC: 4 Gait Persons Needed: 1 Gait Assistive Device: FWW pt. may need to walk through doorway to bedroom with assistance from family to get to bed as his bedroom door may not be wide enough to get w/c thru. pre sent and demonstrates ability to assist pt. Wheelchair Training Does the Pt Use a Wheelchair?: Yes Wheelchair Distance: 3=150 ft (200plus) Wheel 50 ft with 2 turns (QC): 6 Wheel 150 ft (QC): 6 Type of Wheelchair: Manual grades, thresh holds, backing and tight turning as well as braking all Mod I Stair Training Stair Training: Handrails/: No handrail #of Steps: 2 1 Step (curb) (QC): 5 Level of Assist: 5 pt. with unique situation demonstrates that he can bump up steps in his bottom and lift himself to w/c with triceps from floor level if w/c is taken to top of steps by helper Exercises Supine Ex: Bridging (single leg), Rolling, Heel Slides, Scooting, Straight leg raise, Hip abd/add Supine Reps: 10 Assessment Current Status: Good Progress meets goals, wants badly to DC, demonstrates he can bump up steps and manage TRFs and safe w/c mob. Awaiting acquisition of equip and ok to DC PT Short Term Goals Short Term Goals Time Frame: Jan 08, 2019 Gait Distance Comment: 20' Gait Assistive Device: FWW Wheelchair Distance: 150'x2 PT Detention Goals Detention Goals PT Human Resources Executive Assistant Goals Time Frame: Jan 22, 2019 Sit to Lying (QC): 6 (met) Lying-Sitting on Side/Bed(QC): 6 (met) Sit to Stand (QC): 4 (met) Roll Left to Right (QC): 6 (met) Chair/Paa-eq-Jseux Xfer(QC): 4 (met) Car Transfer (QC): 4 (met) Distance: 50' Walk 10 feet (QC): 4 (met) Walk 10ft-Uneven Surface(QC): 4 (SBA) Walk 50ft with 2 Turns (QC): 4 Gait Level of Assist: 4 (SBA) Gait Assistive Device: FWW # of Steps: 4 1 Step (curb) (QC): 4 (SBA) 4 Steps (QC): 4 (SBA) Stairs Level Of Assist: 4 (SBA) PT Plan Treatment/Plan Treatment Plan: Continue Plan of Care Treatment Plan: Bed Mobility, Concurrent Therapy, Education, Functional Activity Eitan, Functional Strength, Group Therapy, Gait, Safety, Therapeutic Exercise, Transfers Treatment Duration: Jan 22, 2019 Frequency: At least 5 of 7 days/Wk (IRF) Estimated Hrs Per Day: 1.5 hours per day Patient and/or Family Agrees t: Yes Safety Risks/Education Patient Education: Gait Training, Transfer Techniques, Steps, Correct Positioning, W/C Management, Disease Process, Safety Issues Teaching Recipient: Patient, Family Teaching Methods: Demonstration, Discussion Response to Teaching: Verbalize Understanding, Return Demonstration, Reinforcement Needed present and supportive and proactive Time/GCodes Time In: 750 Time Out: 850 Total Billed Treatment Time: 60 Total Billed Treatment 1,f [facility] 15m,FA35m,EX10m FINN IRIZARRY AUTOMOTIVE PRODUCT ENGINEER Jan 06, 2019 08:46
--- NOTE | 2019-01-06 09:00 | NUR ---
Notified by therapy staff and nursing that patient is wanting to discharge home today. Per PT progress note: "Pts. present and very supportive. Pt. states repeatedly that he wants to go home today. States he cannot sleep here at all and needs to be in his own bed for good sleep. Pts. points out that the ramp is not in place and he cannot wt bear on RLE. Pt. insists he can TRF from floor by sliding backwards on his bottom and lift self into w/c. Pt. invited to demonstrate this and does so..." Discussed discharge plan with patient and his . Patient's states she talked to her boss at [email or web address] and he is going to ask for financial assistance to purchase materials to build a ramp through the [employer] to assist the patient and his . This worker contacted [facility] regarding rental of ramp. 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 Patient's states she has been in contact with Mr. Maldonado from [employer] and will complete an application for a ramp. Contact information for [employer], [facility] [employer], [employer] for [facility] and [facility] provided to patient and his . Patient's reports their son will be home to assist her with getting patient in the house. Patient and are agreeable to discharge today, even though a ramp has not been installed at the home. Patient reports that between his , son and nygxsoph-lv-fyl, someone will be with him during the daytime and nighttime hours to provide assistance as needed. This worker will begin process of obtaining recommended equipment and home health care.
--- NOTE | 2019-01-06 09:58 | NUR ---
Called the [facility] in [place] requesting a BSC for patient to use while he is NWB to [facility] does have a BSC available. BSC needs to be picked up today before noon. Called patient's and informed her. Patient's is able to garbage pick up man BSC today around 1100.
--- NOTE | 2019-01-06 10:19 | NUR ---
Patient's preferred provider for home health care is [facility] and preferred provider for DME is [facility]. Order for wheelchair and cushion faxed to [facility]. Order for [facility] PT, OT and nursing faxed to [facility].
--- NOTE | 2019-01-06 11:26 | NUR ---
IMM from Medicare reviewed with patient. Patient states he is ready to go home. Signature obtained.
--- NOTE | 2019-01-06 11:43 | Diagnostic Imaging Report ---
EXAMINATION: Right ankle at 1058 hours. INDICATION: Injury, ankle pain. TECHNIQUE: Three views of the right ankle were obtained. FINDINGS: The prior exam of 12/31/2018 noted a slightly displaced fracture of the distal fibula and raised the question of a minute avulsion fracture of the medial malleolus. On this exam, the fracture fragments of the distal fibula are slightly more displaced than noted on the prior exam but still seem to be in good alignment. There is no healing callus identified yet. The suspected avulsion fracture along the inferior aspect of the medial malleolus noted on the prior study is unchanged. On the lateral view, there is a suggestion of a slightly displaced fracture extending through the posterior malleolus of the distal tibia. That finding is not well appreciated on the other two projections. If further study is desired, however, then CT would be recommended. No other fracture or acute bony abnormality is noted. The ankle mortise is not widened. There is still soft tissue edema about the ankle joint although the soft tissue edema has diminished since the prior exam. IMPRESSION: 1. There is slightly greater displacement of the fracture fragments of the distal fibula than noted on the prior exam. There is also question of a fracture involving the posterior malleolus of the distal tibia. Recommendations as above. 2. The minute avulsion fracture involving the medial malleolus seen previously is again evident and no different. 3. There is no acute bony abnormality appreciated. Dictated by: Dictated on workstation # [id number]
[2019-01-06] MEDS ORDERED: OXYC-471 PO (11:46)
[2019-01-06] MEDS ORDERED: PROP20TA5 PO (11:46)
[2019-01-06] MEDS ORDERED: APIX2.5T PO (11:46)
--- NOTE | 2019-01-06 11:46 | Progress Note - Ortho ---
Progress Note Subjective Date of Exam 01/06/19 Chief Complaint Right ankle fracture HPI/Events since last exam he is 6 days since injury to his right ankle. He continues with this Cam Walker. Continues nonweightbearing. Review of Systems Unchanged Allergies: Coded Allergies: Iodinated Contrast Media (Verified Allergy, Unknown, 02/10/07) Uncoded Allergies: IV DYE (Allergy, Mild, 02/07/07) Home Meds Reported Medications Docusate Sodium (Colace) 100 Mg Capsule, 100-200 MG PO BID PRN for CONSTIPATION- 1ST LINE, CAP 12/31/18 Cholecalciferol (Vitamin D3) (Vitamin D3) 1,000 Unit Capsule, 1000 UNIT PO DAILY, CAP 12/31/18 Cyanocobalamin (Vitamin B-12) (Vitamin B-12) 1,000 Mcg Tablet, 1000 MCG PO DAILY, TAB 12/31/18 Duloxetine HCl (Duloxetine HCl) 60 Mg Capsule.dr, 60 MG PO HS, CAP 12/31/18 Oxycodone HCl/Acetaminophen (Oxycodone-Acetaminophen 5-325) 1 Each Tablet, 1 TAB PO Q6H PRN for PAIN-MODERATE, TAB 12/31/18 Celecoxib (Celecoxib) 200 Mg Capsule, 200 MG PO BID, CAP 12/31/18 Ondansetron HCl (Ondansetron HCl) 4 Mg Tablet, 4 MG PO Q4H PRN for NAUSEA/VOMITING-1ST LINE, TAB 12/31/18 Propranolol HCl (Propranolol HCl ER) 80 Mg Cap.sa.24h, 80 MG PO HS, CAP 12/31/18 Pregabalin (Lyrica) 150 Mg Capsule, 150 MG PO BID, CAP 12/31/18 Amitriptyline HCl (Amitriptyline HCl) 75 Mg Tablet, 75 MG PO HS, TAB 12/31/18 Levothyroxine Sodium (Levothyroxine Sodium) 50 Mcg Tablet, 50 MCG PO DAILY, TAB 12/31/18 Allopurinol (Allopurinol) 100 Mg Tablet, 100 MG PO HS, TAB 11/29/15 Tizanidine HCl (Tizanidine HCl) 2 Mg Tablet, 2 MG PO TID PRN for MUSCLE SPASMS, TAB 04/20/15 Discontinued Reported Medications Tramadol HCl (Tramadol HCl) 50 Mg Tablet, 100 MG PO TID 12/06/15 Lisinopril (Lisinopril) 5 Mg Tablet, 5 MG PO DAILY, TAB 11/29/15 Trazodone HCl (Trazodone HCl) 50 Mg Tablet, 50 MG PO HS, TAB 11/29/15 Alprazolam (Alprazolam) 1 Mg Tablet, 1 MG PO TID, TAB 11/29/15 Ropinirole HCl (Ropinirole HCl) 1 Mg Tablet, 1 MG PO HS PRN for PAIN 04/20/15 Temazepam (Temazepam) 15 Mg Capsule, 15 MG PO HS 04/20/15 Pregabalin (Lyrica) 100 Mg Capsule, 100 MG PO HS, CAP 04/20/15 Discontinued Scripts Oxycodone HCl/Acetaminophen (Percocet 5-325 mg Tablet) 1 Each Tablet, 1-2 EACH PO Q4H PRN for PAIN-MODERATE TO SEVERE, #20 TAB Prov:SALENA LE MD 02/03/17 Prednisone (Prednisone) 20 Mg Tab, 20 MG PO BID, #6 TAB Prov:SALENA LE MD 02/03/17 Objective Exam Constitutional: [] HEENT: [] Neck: [] Cardiovascular: [] Respiratory: [] Gastrointestinal: [] Genitourinary: [] Skin: [] Back/Spine: [] Extremities: [Mild swelling right ankle. Pain over the medial and lateral malleoli.] Neurologic: [] Psychiatric: [] Hematologic/lymphatic/immunologic: [] Vital Signs Vital Signs Date Time Temp Pulse Resp B/P (MAP) Pulse Ox O2 Delivery O2 Flow Rate FiO2 01/06/19 09:00 Room Air 01/06/19 05:28 36.8 84 20 123/74 (90) 95 Room Air 01/05/19 20:00 Room Air 01/05/19 17:32 37.4 80 18 131/75 (93) 98 Room Air I & O 01/06/19 07:00 Intake Total 1740 ml Output Total 550 ml Balance 1190 ml Assessment and Plan Assessment 6 days since injury right ankle Problem List Unchanged Plan Continue with CAM walker, nonweightbearing right foot ankle. Follow-up in 2 weeks in the office with repeat x-rays Final Diagonsis Fracture right ankle Level of the visit: Level 3 Clinical Quality Measures DVT/VTE Risk/Contraindication: Risk Factor Score Per Nursin RFS Level Per Nursing on Admit: 4+=Very High DELFIN BARLOW MD Jan 06, 2019 11:46
--- NOTE | 2019-01-06 11:48 | Discharge Summary ---
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 (1) Fracture of distal end of right fibula Status: Acute (2) Leukocytosis Status: Acute (3) Depression Status: Chronic Qualifiers: Depression Type: unspecified Qualified Codes: F32.9 - Major depressive disorder, single episode, unspecified (4) Neuropathy Status: Chronic (5) Restless leg syndrome Status: Chronic (6) Debility Status: Acute (7) Hypotension Status: Acute Qualifiers: Hypotension type: unspecified hypotension type Qualified Codes: I95.9 - Hypotension, unspecified (8) Elevated lactic acid level Status: Acute (9) Status post total right knee replacement Status: Chronic (10) Fall on same level Status: Acute Qualifiers: Encounter type: initial encounter Qualified Codes: W18.30XA - Fall on same level, unspecified, initial encounter (11) Hypotension Status: Acute Qualifiers: Hypotension type: idiopathic hypotension Qualified Codes: I95.0 - Idiopathic hypotension (12) Lower back pain Status: Chronic (13) Radiculopathy Status: Chronic Qualifiers: Spinal region: unspecified Qualified Codes: M54.10 - Radiculopathy, site unspecified (14) Syncope Status: Acute Discharge Summary Discharge Physical Examination Allergies: Coded Allergies: Iodinated Contrast Media (Verified Allergy, Unknown, 02/10/07) Uncoded Allergies: IV DYE (Allergy, Mild, 02/07/07) Vitals & I&Os Vital Signs Date Time Temp Pulse Resp B/P (MAP) Pulse Ox O2 Delivery O2 Flow Rate FiO2 01/06/19 14:56 36.8 88 20 135/71 95 Room Air General Appearance: Alert, Oriented X3, Cooperative Respiratory: Clear to Auscultation Cardiovascular: Regular Rate Psych/Mental Status: Mental Status NL, Mood NL Hospital Course Was the Problem List Reviewed?: Yes Hospital Course: Pt had an uneventful 6 days hospital course when he was admitted after suffering a fall and a right tib fib fracture and non weight bearing. Boot was placed and blister formed so provided additional support from the brace. Dr. Saeed evaluated the x-ray that showed slight displacement and no additional changes were made by Dr. Saeed and will have close follow-up in his office. Ramp is ultimately not needed at this point since he can lift himself up and pt will go home on Eliquis oral anticoagulation 2.5 twice a day for truck terminal manager anticoagulation until he is back to mobilization. PCP was updated on the DC plan. Labs (last 24 hrs) Laboratory Tests 01/04/19 06:12: White Blood Count 10.4, Red Blood Count 3.91L, Hemoglobin 12.5L, Hematocrit 37L, Mean Corpuscular Volume 94, Mean Corpuscular Hemoglobin 32, Mean Corpuscular Hemoglobin Concent 34, Red Cell Distribution Width 12.6, Platelet Count 251, Mean Platelet Volume 9.4, Neutrophils (%) (Auto) 69, Lymphocytes (%) (Auto) 19, Monocytes (%) (Auto) 11, Eosinophils (%) (Auto) 2, Basophils (%) (Auto) 0, Neutrophils # (Auto) 7.1, Lymphocytes # (Auto) 2.0, Monocytes # (Auto) 1.1H, Eosinophils # (Auto) 0.2, Basophils # (Auto) 0.0, Sodium Level 140, Potassium Level 3.6, Chloride Level 103, Carbon Dioxide Level 26, Anion Gap 11, Blood Urea Nitrogen 10, Creatinine 0.83, Estimat Glomerular Filtration Rate > 60, BUN /Creatinine Ratio 12, Glucose Level 88, Calcium Level 9.3, Corrected Calcium 9.5, Total Bilirubin 0.6, Aspartate Amino Transf (AST/SGOT) 35H, Alanine Aminotransferase (ALT/SGPT) 30, Alkaline Phosphatase 123, Total Protein 7.1, Albumin 3.8 Pending Labs Laboratory Tests 01/04/19 06:12: White Blood Count 10.4, Red Blood Count 3.91, Hemoglobin 12.5, Hematocrit 37, Mean Corpuscular Volume 94, Mean Corpuscular Hemoglobin 32, Mean Corpuscular Hemoglobin Concent 34, Red Cell Distribution Width 12.6, Platelet Count 251, Mean Platelet Volume 9.4, Neutrophils (%) (Auto) 69, Lymphocytes (%) (Auto) 19, Monocytes (%) (Auto) 11, Eosinophils (%) (Auto) 2, Basophils (%) (Auto) 0, Neutrophils # (Auto) 7.1, Lymphocytes # (Auto) 2.0, Monocytes # (Auto) 1.1, Eosinophils # (Auto) 0.2, Basophils # (Auto) 0.0, Sodium Level 140, Potassium Level 3.6, Chloride Level 103, Carbon Dioxide Level 26, Anion Gap 11, Blood Urea Nitrogen 10, Creatinine 0.83, Estimat Glomerular Filtration Rate > 60, BUN/Creatinine Ratio 12, Glucose Level 88, Calcium Level 9.3, Corrected Calcium 9.5, Total Bilirubin 0.6, Aspartate Amino Transf (AST/SGOT) 35, Alanine Aminotransferase (ALT/SGPT) 30, Alkaline Phosphatase 123, Total Protein 7.1, Albumin 3.8 Discharge Home Medications: Active Scripts Active Eliquis (Apixaban) 2.5 Mg Tablet 2.5 Mg PO BID Propranolol HCl 20 Mg Tablet 20 Mg PO BID Oxycodone-Acetaminophen 5-325 (Oxycodone HCl/Acetaminophen) 1 Each Tablet 1 Tab PO Q6H PRN Reported Colace (Docusate Sodium) 100 Mg Capsule 100-200 Mg PO BID PRN Vitamin D3 (Cholecalciferol (Vitamin D3)) 1,000 Unit Capsule 1,000 Unit PO DAILY Vitamin B-12 (Cyanocobalamin (Vitamin B-12)) 1,000 Mcg Tablet 1,000 Mcg PO DAILY Duloxetine HCl 60 Mg Capsule.dr 60 Mg PO HS Celecoxib 200 Mg Capsule 200 Mg PO BID Ondansetron HCl 4 Mg Tablet 4 Mg PO Q4H PRN Levothyroxine Sodium 50 Mcg Tablet 50 Mcg PO DAILY Allopurinol 100 Mg Tablet 100 Mg PO HS Tizanidine HCl 2 Mg Tablet 2 Mg PO TID PRN Instructions to patient/family Please see electronic discharge instructions given to patient. Diagnosis/Problems Diagnosis/Problems (1) Fracture of distal end of right fibula Status: Acute (2) Leukocytosis Status: Acute (3) Depression Status: Chronic Qualifiers: Qualified Codes: F32.9 - Major depressive disorder, single episode, unspecified (4) Neuropathy Status: Chronic (5) Restless leg syndrome Status: Chronic (6) Debility Status: Acute (7) Hypotension Status: Acute Qualifiers: Qualified Codes: I95.9 - Hypotension, unspecified (8) Elevated lactic acid level Status: Acute (9) Status post total right knee replacement Status: Chronic (10) Fall on same level Status: Acute Qualifiers: Qualified Codes: W18.30XA - Fall on same level, unspecified, initial encounter (11) Hypotension Status: Acute Qualifiers: Qualified Codes: I95.0 - Idiopathic hypotension (12) Lower back pain Status: Chronic (13) Radiculopathy Status: Chronic Qualifiers: Qualified Codes: M54.10 - Radiculopathy, site unspecified (14) Syncope Status: Acute Clinical Quality Measures DVT/VTE Risk/Contraindication: Risk Factor Score Per Nursin RFS Level Per Nursing on Admit: 4+=Very High SAMAN BALDERAS DO Jan 06, 2019 11:48
--- NOTE | 2019-01-06 11:54 | NUR ---
DR. BARLOW NOTIFIED OF RIGHT ANKLE XRAY RESULTS. NO NEW ORDERS. STILL OKAY FOR DISCHARGE TODAY.
--- NOTE | 2019-01-06 12:00 | NUR ---
DR. FIELDS HERE TO SEE PATIENT.
--- NOTE | 2019-01-06 14:00 | NUR ---
PATIENT REMINDED TO WEAR BOOT ON RIGHT LEG AND NON WEIGHT BEARING X 3 WEEKS. VOICES UNDERSTANDING.
--- NOTE | 2019-01-06 14:00 | NUR ---
Met with patient and patient's prior to discharge. Wheelchair has been delivered to room by [facility]. Patient and his provided with resources for ramp installation; however, patient's hopes to use [employer] to obtain materials for wheelchair ramp through her employment at [employer]. Patient's confirmed she did pick remover the BSC from [employer]. Patient received a donated FWW and gel cushion for wheelchair (as gel cushion is currently on backorder at [employer]). Patient will receive [facility] PT, OT and nursing through [facility]. Patient and patient's are agreeable for discharge today.
--- NOTE | 2019-01-06 14:16 | Occupational Ther Daily Note ---
OT Current Status-Daily Note Subjective Pt seen in bed. Pt states 7-8/10 pain, requests pain medication. Nursing notified. Pt agreeable to OT tx session. Mental Status/Objective Patient Orientation: Normal For Age ADL-Treatment Therapy Code Descriptions/Definitions Functional [place] Measure: 0=Not Assessed/NA 4=Minimal Assistance 1=Total Assistance 5=Supervision or Setup 2=Maximal Assistance 6=Modified [place] 3=Moderate Assistance 7=Complete IndependenceSCALE: Activities may be completed with or without assistive devices. 1-Fceczdmnsl-qnlvwoz completes the activity by him/herself with no assistance from a helper. 5-Set-up or Clean-up Assistance-helper sets up or cleans up; patient completes activity. Pawling assists only prior to or following the activity. 4-Supervision or Touching Assistance-helper provides verbal cues and/or touching/steadying and/or contact guard assistance as patient completes activity. Assistance may be provided throughout the activity or intermittently. 3-Partial/Moderate Assistance-helper does LESS THAN HALF the effort. Pawling lifts, holds or supports trunk or limbs, but provides less than half the effort. 2-Substantial/Maximal Assistance-helper does MORE THAN HALF the effort. Pawling lifts or holds trunk or limbs and provides more than half the effort. 7-Cjftceinh-hcthqi does ALL the effort. Patient does none of the effort to complete the activity. Or, the assistance of 2 or more helpers is required for the patient to complete the activity. If activity was not attempted, code reason: 7-Patient Refused. 9-Not Applicable-not attempted and the patient did not perform the activity before the current illness, exacerbation or injury. 10-Not Attempted due to Environmental Limitations-(lack of equipment, weather restraints, etc.). 88-Not Attempted due to Medical Conditions or Safety Concerns. Eating (QC): 6 Oral Hygiene (QC): 6 Shower/Bathe Self (QC): 6 (Uses grab bars and shower bench. Pt states shower at home is tub-shower, states he is able to grab grab bar within home shower inside to the R, step in with L foot, swing R leg over edge, and sit on his shower chair. Pt demonstrates abilities to complete this task by swinging leg over ~1 foot. Pt completes shower with mod I. ) Upper Body Dressing (QC): 6 (Pt completes task EOB with good sitting balance.) Lower Body Dressing (QC): 4 (Pt completes doffing/ donning pants with mod I. Pt requires assist donning/ doffing mode wrap for RLE swelling. Pt states it feels less swollen and he will have assist completing this task at home, OT assists prior to task. Pt able to doff/ don CAM boot with minimal corrections for cor rect tightness of CAM boot straps.) Toileting Hygiene (QC): 6 Toilet Transfer (QC): 6 (Pt utilizes vertical grab bar during transfer, utilizes hand rails on commode during stand to sit. Pt has both hand rails on toilet and vertical bar at home. Pt states he has "plenty of room" for w/c access within bathroom.) on/off footwear 4 Other Treatment Pt completes ADL tasks, returns to bed. pt educated on UE exercises to complete at home due to use of UE more, especially triceps within the w/c. Pt completes exercises with minimal cues for correct positioning. Pt completes 15 reps of anterior deltoids, chest flies, biceps, and supination/ pronation with 3# weights bilaterally. Pt completes 15 reps 2x per UE with 6# weights to increase tricep strength and endurance. Pt states he is ready to return home, pt educated on fall risks and abilities. Pt states no questions. Pt left in bed with call light in reach, all needs met. Education OT Patient Education: Correct positioning, Energy conservation, Exercise program, Home exercise program, Instructions don/doff splint/brace, Modified ADL techniques, Purpose of tx/functional activities, Reviewed precautions, Rehab process, Safety issues, Transfer techniques, Use of adapted equipment (Pt states he has fitter mechanic at home. Pt states confidence in use for reaching items above/ below safe line of reach. Pt completes ADL tasks wihtout AE.) Teaching Recipient: Patient Teaching Methods: Demonstration, Discussion Response to Teaching: Verbalize Understanding, Return Demonstration OT Short Term Goals Short Term Goals Grooming(FIM): 6 Lower Body Dressing(FIM): 4 Tub Transfer(FIM): 5 1=Demonstrate adherence to instructed precautions during ADL tasks. 2=Patient will verbalize/demonstrate understanding of assistive devices/modifications for ADL. 3=Patient will improve strength/tolerance for activity to enable patient to perform ADL's. OT Group Home Goals Group Home Goals Time Frame: Jan 15, 2019 Eating (QC): 6 (met) Oral Hygiene (QC): 6 (et) Shower/Bathe Self (QC): 6 (met) Upper Body Dressing (QC): 6 (met) Lower Body Dressing (QC): 4 (met) On/Off Footwear (QC): 4 (met) Toileting Hygiene (QC): 6 (met) Toilet/Commode Transfer (QC): 6 (met) Additional Goals: 1-Demonstrate ADL Tasks, 2-Verbalize Understanding, 3- ImproveStrength/Eitan 1=Demonstrate adherence to instructed precautions during ADL tasks. 2=Patient will verbalize/demonstrate understanding of assistive devices/modifications for ADL. 3=Patient will improve strength/tolerance for activity to enable patient to perform ADL's. OT Education/Plan Problem List/Assessment Assessment: Impaired Funct Balance, Impaired I ADL's Discharge Recommendations Plan/Recommendations: Discharge/Goals Met Therapy Discharge Recommendati: Intermittent Supervision, Post Acute OT Equpiment Recommendations-D/C: None Treatment Plan/Plan of Care Treatment,Training & Education: Yes Patient would benefit from OT for education, treatment and training to promote independence in ADL's, mobility, safety and/or upper extremity function for ADL's. Plan of Care: ADL Retraining, Caregiver Training, Concurrent Therapy, Functional Mobility, Group Exercise/Act as Ind, Orthotic Fitting/Training, UE Funct Exercise/Act, W/C Management Training Treatment Duration: Jan 15, 2019 Frequency: At least 5 of 7 days/Wk (IRF) Estimated Hrs Per Day: 1.5 hours per day Agreement: Yes Rehab Potential: Fair Time/GCodes Start Time: 09:30 Stop Time: 11:00 Total Time Billed (hr/min): 90 Billed Treatment Time 1, ADL 4 (60), EX 2(30)= 90 DICKSON SAM OTR Jan 06, 2019 14:16
--- NOTE | 2019-01-06 14:29 | Therapy Team Discharge Summary ---
Therapy Discharge Summary Discharge Recommendations Date of Discharge Occupational Therapy Pt admitting diagnosis to ARU= hypotension/ R ankle fracture. Pt NWB RLE, CAM boot in place. Admitting Qc's: eating 6, oral hygiene 6, bathing 4, UB dressing 6, LB dressing 2, on/off footwear 2, toilet hygiene 5, toilet tx 4. OT therapy sessions involved ADL activities/ adaptive training, functional mobility, UE exercise, education. Pt educated on hypotension and safety during transfers, positioning, WB status. Pt d/c Qc's: eating 6, oral hygiene 6, bathing 6, UB dressing 6, LB dressing4, on/off footwear 4, Toilet hygiene 6, toilet transfer 6. OT recommendations include HH OT to assess home environment and pt's functional IND level. No AE recommendations at this time. Impaired Funct Balance, Impaired I ADL's PT Snf Goals Snf Goals PT Print And Pattern Designer Goals Time Frame: Jan 22, 2019 Roll Left to Right (QC): 6 (met) Sit to Lying (QC): 6 (met) Lying-Sitting on Side/Bed(QC): 6 (met) Sit to Stand (QC): 4 (met) Chair/Hjc-nn-Fwlte Xfer(QC): 4 (met) Car Transfer (QC): 4 (met) Distance: 50' Walk 10 feet (QC): 4 (met) Walk 10ft-Uneven Surface(QC): 4 (SBA) Walk 50ft with 2 Turns (QC): 4 Gait Level of Assist: 4 (SBA) Gait Assistive Device: FWW # of Steps: 4 1 Step (curb) (QC): 4 (SBA) 4 Steps (QC): 4 (SBA) Stairs Level Of Assist: 4 (SBA) OT Print And Pattern Designer Goals Snf Goals Time Frame: Jan 15, 2019 Eating (FIM): 7 Eating (QC): 6 (met) Oral Hygiene (QC): 6 (et) Shower/Bathe Self (QC): 6 (met) Upper Body Dressing (QC): 6 (met) Lower Body Dressing (QC): 4 (met) On/Off Footwear (QC): 4 (met) Toileting Hygiene (QC): 6 (met) Toilet/Commode Transfer (QC): 6 (met) Additional Goals: 1-Demonstrate ADL Tasks, 2-Verbalize Understanding, 3- ImproveStrength/Eitan 1=Demonstrate adherence to instructed precautions during ADL tasks. 2=Patient will verbalize/demonstrate understanding of assistive devices/modifications for ADL. 3=Patient will improve strength/tolerance for activity to enable patient to perform ADL's. DICKSON SAM OTR Jan 06, 2019 14:29
[2019-01-06 14:56] VITALS: BP 135/71
--- NOTE | 2019-01-06 17:33 | Progress Note ---
Subjective Date Seen by a Provider: Jan 06, 2019 Time Seen by a Provider: 13:10 Subjective/Events-last exam Fwup hypotension, right distal fibular fracture, weakness. Pain and swelling in right leg improving. Going home today. Objective Exam Vital Signs Date Time Temp Pulse Resp B/P (MAP) Pulse Ox O2 Delivery O2 Flow Rate FiO2 01/06/19 14:56 36.8 88 20 135/71 95 Room Air 01/06/19 09:00 Room Air 01/06/19 05:28 36.8 84 20 123/74 (90) 95 Room Air 01/05/19 20:00 Room Air 01/05/19 17:32 37.4 80 18 131/75 (93) 98 Room Air I & O 01/06/19 07:00 Intake Total 1740 ml Output Total 550 ml Balance 1190 ml Capillary Refill : Less Than 3 SecondsLess Than 3 Seconds General Appearance: No Apparent Distress Extremity: No Calf Tenderness, Other (RLE with boot in place) Neurologic/Psychiatric: Alert, Oriented x3 Assessment/Plan Assessment/Plan Assess & Plan/Chief Complaint 1. Hypotension--resolved 2. Right Distal Fibular Fracture--DC to home and will fwup with ortho in about 2 weeks 3. Polypharmacy--have DCed lyrica and amitriptyline Clinical Quality Measures DVT/VTE Risk/Contraindication: Risk Factor Score Per Nursin RFS Level Per Nursing on Admit: 4+=Very High IBRAHIMA FIELDS DO Jan 06, 2019 17:33
== END 2019-01-06 14:15 | disposition home health service (06) | DRG 561 ==
PROVIDERS: ADMIT Internal Medicine; ATTEND Internal Medicine
DX: S82.831D Other fracture of upper and lower end of right fibula, subsequent encounter for closed fracture with routine healing (principal); S82.391D Other fracture of lower end of right tibia, subsequent encounter for closed fracture with routine healing; I95.0 Idiopathic hypotension; R55 Syncope and collapse; R29.6 Repeated falls; I10 Essential (primary) hypertension; M54.10 Radiculopathy, site unspecified; G62.9 Polyneuropathy, unspecified; G25.81 Restless legs syndrome; M10.9 Gout, unspecified; F41.9 Anxiety disorder, unspecified; F32.9 Major depressive disorder, single episode, unspecified; W19.XXXD Unspecified fall, subsequent encounter; Y92.019 Unspecified place in single-family (private) house as the place of occurrence of the external cause
CPT/HCPCS: 36415; 73610; 80053; 85025

== ENCOUNTER → 2019-01-20 | Outpatient (CLI) | payer MEDICARE, OTHER ==
[~2019-01-20] MED LIST changes: +APIX2.5T PO; +ENOX40DI8 SC; +PROP20TA5 PO
--- NOTE | 2019-01-20 10:49 | Diagnostic Imaging Report ---
INDICATION: Pain status post injury. Follow-up fracture. COMPARISON: 01/06/2019 FINDINGS: Three radiographic views of the right ankle were obtained and again demonstrate mildly displaced oblique oriented fracture of the distal fibula. Fracture fragments are in stable alignment. There is no appreciable surrounding callus formation. Posterior malleolar fracture is also again identified. Fracture fragments appear stable as well. No new acute fracture or dislocation of the right ankle is seen. Joint spaces are maintained. No unexpected radiopaque foreign bodies are seen. There is persistent mild generalized soft tissue edema. IMPRESSION: 1. Stable exam of the right ankle showing incompletely healed distal lateral and posterior malleolar fractures as described above. Dictated by: Dictated on workstation # [id number]
== END ==
LOC: ORTHO 09:31
PROVIDERS: ATTEND Orthopaedic Surgery
DX: S82.831D Other fracture of upper and lower end of right fibula, subsequent encounter for closed fracture with routine healing (principal); W19.XXXD Unspecified fall, subsequent encounter
CPT/HCPCS: 73610

== ENCOUNTER → 2019-02-10 | Outpatient (CLI) | payer MEDICARE, OTHER ==
--- NOTE | 2019-02-10 11:52 | Diagnostic Imaging Report ---
INDICATION: Right ankle fracture, follow-up. TIME OF EXAM: 11:01 a.m. COMPARISON: Correlation is made with prior radiographs from 01/20/2019. FINDINGS: Obliquely oriented fracture of the distal fibula is again noted with very slight lateral displacement of the distal fracture fragment. Fracture line does remain clearly visible. Lateral view again demonstrates fracture involving the posterior malleolus showing slight posterior displacement. This is also similar to prior exam. Ankle mortise is maintained. Talar dome is smooth. There is a lucency at the base of the fifth metatarsal, suspicious for a fracture as well. IMPRESSION: Overall stable appearance to the right ankle when compared with examination from 01/20/2019. Dictated by: Dictated on workstation # [id number]
== END ==
LOC: ORTHO 10:24
PROVIDERS: ATTEND Orthopaedic Surgery
DX: S82.891D Other fracture of right lower leg, subsequent encounter for closed fracture with routine healing (principal); X58.XXXD Exposure to other specified factors, subsequent encounter
CPT/HCPCS: 73610; 99213

== ENCOUNTER → 2019-02-10 | Outpatient (CLI) | payer MEDICARE, OTHER ==
--- NOTE | 2019-02-10 11:26 | Diagnostic Imaging Report ---
INDICATION: Dyspnea on exertion. COMPARISON: CT chest dated 02/25/2007. FINDINGS: Frontal and lateral radiographic views of the chest were obtained and show normal cardiac silhouette and pulmonary vasculature. Pulmonary nodule is identified within the lateral left midlung and measures 1.7 x 1.1 cm. This is stable compared to previous CT chest dated 02/25/2007. Lungs are otherwise clear. There is no focal consolidation, large effusion, nor pneumothorax. Osseous structures show no gross acute abnormalities. IMPRESSION: 1. No acute cardiopulmonary process. 2. Stable left pulmonary nodule. Dictated by: Dictated on workstation # [id number]
== END ==
LOC: RAD 10:39
PROVIDERS: ATTEND Family Medicine
DX: R05 Cough (principal); R91.1 Solitary pulmonary nodule
CPT/HCPCS: 71046

== ENCOUNTER → 2019-03-04 | Outpatient (CLI) | payer MEDICARE, OTHER ==
[~2019-03-04] MED LIST changes: -TRAM50TA2 PO; -TRAZ-222 PO; +TRM50T PO; +TRZ50T PO
--- NOTE | 2019-03-04 12:50 | Diagnostic Imaging Report ---
INDICATION: Bimalleolar fracture. COMPARISON: February 10, 2019. TECHNIQUE: Three radiographs of the right ankle dated March 04, 2019. FINDINGS: Previously noted laterally displaced distal fibular fracture is again identified. Fracture lucency remains well visualized. Alignment is unchanged. Minimally posteriorly displaced fracture involving the posterior malleolus is again noted on the lateral radiograph, appearing similar to the prior examination. Fracture plane remains visualized. No significant periosteal reaction. No new fracture or dislocation. The talar dome is unremarkable. No suspicious radiopaque foreign body. IMPRESSION: Stable examination demonstrating persistent fracturing of the distal fibula and posterior malleolus without significant healing at this time. Recommend continued radiographic follow-up as findings could relate to developing nonunion. No new acute osseous abnormality. Dictated by: Dictated on workstation # [id number]
== END ==
LOC: ORTHO 09:25
PROVIDERS: ATTEND Orthopaedic Surgery
DX: S82.841D Displaced bimalleolar fracture of right lower leg, subsequent encounter for closed fracture with routine healing (principal)
CPT/HCPCS: 73610

== ENCOUNTER 2019-06-09 22:44 | Emergency (ER) | payer MEDICARE, OTHER ==
[~2019-06-09] VITALS: Ht 196 cm; Wt 123.7 kg
[~2019-06-09 22:44] MED LIST changes: +ONDA-105 PO; -ONDA4TAB10 PO; +ROPI1TAB PO; -ROPI1TAB2 PO
[2019-06-10] MEDS ORDERED: RX-LORAZEPAM (ATIVAN) 0.5 MG TAB PPK#4 PO STA (01:09)
--- NOTE | 2019-06-10 01:15 | ED General ---
General Chief Complaint: General Problems/Pain Stated Complaint: RESTLESS LEGS Source of Information: Patient Exam Limitations: No Limitations History of Present Illness Date Seen by Provider: Jun 10, 2019 Time Seen by Provider: 00:49 Initial Comments Patient presents to ER by private conveyance with his spouse and chief complaint that he was having shaking, restlessness, tunnel vision, feeling like he had restless leg syndrome over his entire body. He does have a history of anxiety and has recently started paroxetine to help control this. He also has issues with poor sleep for the past 6 weeks. He is being worked up by Dr. Mcpherson and had to stop taking the Ambien years ago that was helping him with this because he started using oxycodone for his knee. He would like some Ambien her something for his anxiety to help him sleep. He drinks about a beer or 2 a night. He denies suicidal ideation. Allergies and Home Medications Allergies Coded Allergies: Iodinated Contrast Media (Verified Allergy, Unknown, 02/10/07) Uncoded Allergies: IV DYE (Allergy, Mild, 02/07/07) Home Medications Allopurinol 100 Mg Tablet, 100 MG PO HS, (Reported) Apixaban 2.5 Mg Tablet, 2.5 MG PO BID Prescribed by: SAMAN BALDERAS on 01/06/19 114 Celecoxib 200 Mg Capsule, 200 MG PO BID, (Reported) Cholecalciferol (Vitamin D3) 1,000 Unit Capsule, 1,000 UNIT PO DAILY, (Reported) Cyanocobalamin (Vitamin B-12) 1,000 Mcg Tablet, 1,000 MCG PO DAILY, (Reported) Docusate Sodium 100 Mg Capsule, 100-200 MG PO BID PRN for CONSTIPATION-1ST LINE, (Reported) Duloxetine HCl 60 Mg Capsule.dr, 60 MG PO HS, (Reported) Levothyroxine Sodium 50 Mcg Tablet, 50 MCG PO DAILY, (Reported) Ondansetron HCl 4 Mg Tablet, 4 MG PO Q4H PRN for NAUSEA/VOMITING-1ST LINE, (Reported) Oxycodone HCl/Acetaminophen 1 Each Tablet, 1 TAB PO Q6H PRN for PAIN-MODERATE Prescribed by: SAMAN BALDERAS on 01/06/19 114 Propranolol HCl 20 Mg Tablet, 20 MG PO BID Prescribed by: SAMAN BALDERAS on 01/06/19 1146 Tizanidine HCl 2 Mg Tablet, 2 MG PO TID PRN for MUSCLE SPASMS, (Reported) Patient Home Medication List Home Medication List Reviewed: Yes Review of Systems Review of Systems Constitutional: No chills, No diaphoresis EENTM: No ear pain, No double vision Respiratory: No cough, No short of breath Cardiovascular: No chest pain, No edema Gastrointestinal: No abdominal pain, No nausea Genitourinary: No discharge, No dysuria Musculoskeletal: No back pain, No joint pain Skin: No pruritus, No rash Psychiatric/Neurological: See HPI, Anxiety; Denies Depressed All Other Systems Reviewed Negative Unless Noted: Yes Past Sqmouhs-Ijmdkd-Hdcgpk Hx Patient Social History Alcohol Use: Regular Use Alcohol Beverage of Choice: Beer Recreational Drug Use: No Smoking Status: Former Smoker Type Used: Electronic/Vapor Recent Foreign Travel: No Contact w/Someone Who Travel: No Recent Hopitalizations: No Immunizations Up To Date Tetanus Booster (TDap): Less than 5yrs PED Vaccines UTD: Yes Date of Pneumonia Vaccine: Jan 30, 2012 Date of Influenza Vaccine: Dec 29, 2014 Seasonal Allergies Seasonal Allergies: No Past Medical History Surgeries: Yes (PARTIAL Thyroidectomy, Torn meniscus left side, BACK SURGERY X2, ) Orthopedic, Thyroidectomy Respiratory: Yes Pneumonia Currently Using CPAP: No Currently Using BIPAP: No Cardiac: Yes Hypertension, Syncope Neurological: Yes ("possible pressure on brain causing dizziness", tremors) Neuropathy Reproductive Disorders: No Sexually Transmitted Disease: No HIV/AIDS: No Genitourinary: No Gastrointestinal: No Musculoskeletal: Yes (SCIATICA, RESTLESS LEG SYNDROME, OSTEOARTHRITIS) Degenerate Disk Disease, Arthritis, Chronic Back Pain, Gout Endocrine: No HEENT: No Loss of Vision: Bilateral Hearing Impairment: Denies Cancer: No Psychosocial: Yes Sleep Difficulties, Anxiety Integumentary: No Blood Disorders: No Adverse Reaction/Blood Tranf: No (N/A) Family Medical History CANCER 19 FATHER 19 MOTHER No Pertinent Family Hx Physical Exam Vital Signs Capillary Refill : Height, Weight, BMI Height: 6'6.00" Weight: 245lbs. 6.0oz. [id number]; 32.56 BMI Method:Stated General Appearance: No Apparent Distress, WD/WN (asleep when I entered the tahir m.) Eyes: Bilateral Eye Normal Inspection, Bilateral Eye PERRL, Bilateral Eye EOMI HEENT: PERRL/EOMI, TMs Normal, Normal ENT Inspection, Pharynx Normal, Moist Mucous Membranes Neck: Full Range of Motion, Normal Inspection, Non Tender Respiratory: No Accessory Muscle Use, No Respiratory Distress Cardiovascular: Regular Rate, Rhythm, No Edema, Normal Peripheral Pulses Gastrointestinal: Normal Bowel Sounds, Non Tender, Soft Extremity: Normal Capillary Refill, Normal Inspection, No Pedal Edema Neurologic/Psychiatric: Alert, Oriented x3, No Motor/Sensory Deficits, Other (mildly anxious affect) Skin: Normal Color, Warm/Dry Progress/Results/Core Measures Suspected Sepsis SIRS Temperature: Pulse: Respiratory Rate: Blood Pressure / Mean: Results/Orders My Orders Orders - SHEILA GRAJEDA Rx-Lorazepam (Rx-Ativan) (06/10/19 01:09) Vital Signs/I&O Capillary Refill : Progress Note : Time: 01:13 Progress Note The patient was asleep when I walked in and is calm. Apparently earlier he was experiencing symptoms consistent with an anxiety attack. He is asking for benzos but was told by his primary care doctor that he would have to get off the oxycodone first. I have explained to him that it would be better if one doctor managed his insomnia and anxiety and it sounds like Dr. Mcpherson is trying to accomplish this by starting paroxetine. We did discuss general sleep hygiene and recommended he keep electronics out of his face and use things like melatonin. Because of his age anticholinergics may not be the best choice. For his anxiety attacks however reasonable to try half milligram of Ativan every 8 hours as needed and he can report back to his primary care doctor next week with that helped. We have encouraged him that it is inappropriate for more than one doctor to be managing psychoactive medications at the same time and that we would not be providing him with more than just a few days of medication. We'll also e ncourage alcohol abstinence as it has interactions with benzos, opiates and can cause rebound wakefulness further worsening his insomnia. Departure Impression Primary Impression: Anxiety attack Additional Impression: Insomnia Qualified Codes: G47.00 - Insomnia, unspecified Disposition: HOME, SELF-CARE Condition: Stable Departure-Patient Inst. Decision time for Depature: 01:16 Referrals: IBRAHIMA MCPHERSON DO (PCP/Family) Primary Care Physician Patient Instructions: Insomnia (DC), Anxiety, Adult (DC), Tips for Getting Better Sleep, What Is a Sleep Study? Add. Discharge Instructions: You should follow-up in the next couple weeks with your primary care doctor to discuss whether you got the anxiety medicine was helpful. For up to an hour prior to going to sleep you should avoid having a electronic sore light sources in your eyes. Reading a book is okay. Avoid exercise, eating or drinking alcohol within a few hours of going to bed. Alcohol has been shown to cause rebound wakefulness a few hours after going to sleep. One tablet of Ativan every 8 hours as necessary for panic attack. All discharge instructions reviewed with patient and/or family. Voiced understanding. Scripts Lorazepam (Ativan) 0.5 Mg Tablet 0.5 MG PO TID PRN for ANXIETY for 5 Days, #15 TAB 0 Refills Prov: SHEILA GRAJEDA 06/10/19 SHEILA GRAJEDA Jun 10, 2019 01:15
[2019-06-10] MEDS ORDERED: LORA-404 PO (01:18)
[2019-06-10 01:29] VITALS: BP 110/68
== END 2019-06-10 01:30 | disposition home or self-care (01) ==
LOC: EDUNIT# 22:44 → ER 22:46
DX: F41.0 Panic disorder [episodic paroxysmal anxiety] (principal); G47.00 Insomnia, unspecified; I10 Essential (primary) hypertension; Z87.891 Personal history of nicotine dependence; Z87.01 Personal history of pneumonia (recurrent)
CPT/HCPCS: 99283

== ENCOUNTER → 2020-03-17 | Outpatient (CLI) | payer MEDICARE, OTHER ==
[~2020-03-17] MED LIST changes: +LORA-404 PO; -TIZA2TAB4 PO; +TIZA2TAB7 PO
[2020-03-17 11:21] LABS: BASOPHILS # (AUTO) 0.1 10^3/uL (0.0-0.1); BASOPHILS % (AUTO) 1 % (0-10); EOSINOPHILS # (AUTO) 0.3 10^3/uL (0.0-0.3); EOSINOPHILS % (AUTO) 3 % (0-10); HEMATOCRIT 47 % (40-54); HEMOGLOBIN 15.7 g/dL (13.3-17.7); LYMPHOCYTES # (AUTO) 2.5 10^3/uL (1.0-4.0); LYMPHOCYTES % (AUTO) 26 % (12-44); MEAN CORPUSCULAR HEMOGLOBIN 32 pg (25-34); MEAN CORPUSCULAR HGB CONC 34 g/dL (32-36); MEAN CORPUSCULAR VOLUME 96 fL (80-99); MEAN PLATELET VOLUME 9.2 fL (9.0-12.2); MONOCYTES % (AUTO) 10 % (0-12); NEUTROPHILS # (AUTO) 5.7 10^3/uL (1.8-7.8); NEUTROPHILS % (AUTO) 59 % (42-75); PLATELET COUNT 369 10^3/uL (130-400); WHITE BLOOD COUNT 9.7 10^3/uL (4.3-11.0)
[2020-03-17 11:50] LABS: ATYPICAL LYMPHOCYTES 1 %; EOSINOPHILS % (MANUAL) 5 %; LYMPHOCYTES % (MANUAL) 28 %; MONOCYTES % (MANUAL) 6 %; NEUTROPHILS % (MANUAL) 60 %; RBC MORPH NORMAL
== END ==
LOC: LAB 10:41
PROVIDERS: ATTEND Family Medicine
DX: D72.829 Elevated white blood cell count, unspecified (principal)
CPT/HCPCS: 36415; 85007; 85027

== ENCOUNTER → 2020-12-19 | Outpatient (CLI) | payer MEDICARE, OTHER ==
[~2020-12-19] MED LIST changes: -LISI-556 PO; +LISI-729 PO; -OXYC-471 PO; +OXYC1TAB11 PO; +TIZA-169 PO; -TIZA2TAB7 PO
--- NOTE | 2020-12-19 09:28 | Diagnostic Imaging Report ---
Clinical indication: Patient with hematuria. No pain and history of kidney stone. Exam: CT exam of the abdomen and pelvis is performed without IV or oral contrast using stone protocol. Coronal and sagittal reformatted images were created. Auto Exposure Controls were utilized during the CT exam to meet ALARA standards for radiation dose reduction. Comparisons: None. Findings: There is very minimal right basilar atelectasis versus infiltrate. There are degenerative spurs involving the visualized lower thoracic spine and lumbar spine. There is L2-L3 posterior lumbar interbody fusion hardware. The liver, pancreas, and gallbladder are unremarkable. There is calcified granuloma in the upper aspect of the spleen. Adrenal glands are unremarkable. Likely a small splenule seen inferiorly adjacent to the spleen. There is a 5 mm x 9 mm stone within the right renal pelvis. There is no hydronephrosis. There is no inflammatory changes adjacent to the right kidney or right ureter. There are no other urinary tract stones seen. The bladder has small amount of fluid within it. There is diffuse bladder wall thickening which is nonspecific. There is no measurable mass. Prostate gland is unremarkable. There is no intrahepatic direction hepatic ductal dilation. There is amorphous groundglass opacification adjacent to the SMA/mesenteric vessels with small lymph nodes within it. There is small to moderate amount of stool in the rectosigmoid region. The appendix is unremarkable. There is no intestinal obstruction. There is no enlarged lymph nodes seen. The extra-abdominal and extra pelvis soft tissue structures are unremarkable. IMPRESSION: 1: There is a 9 mm stone within the right renal pelvis. There is no hydronephrosis or adjacent inflammatory changes. There are no other urinary tract stones seen. 2: There is amorphous fat stranding with small lymph nodes in the SMA mesenteric region. This is nonspecific with rene mesenteric appearance. 3: There is no other CT evidence of acute abdominal or pelvic process. 4: There is minimal atelectasis or infiltrate in the posterior right lung base. Dictated by: Dictated on workstation # [id number]
== END ==
LOC: RAD 08:45
PROVIDERS: ATTEND Urology
DX: N20.0 Calculus of kidney (principal)
CPT/HCPCS: 74176

== ENCOUNTER → 2020-12-21 | Outpatient (CLI) | payer MEDICARE, OTHER ==
[~2020-12-21] MED LIST changes: -DOXY100C2 PO; +DOXY100C5 PO
--- NOTE | 2020-12-21 15:59 | Diagnostic Imaging Report ---
INDICATION: History of calculi. COMPARISON: 12/19/2020. FINDINGS: Two supine radiographic views of the abdomen were obtained. Small bowel loops are nondistended. There is no large collection of free peritoneal air. No unexpected extraosseous calcifications or radiopaque foreign bodies are seen. Postsurgical changes of the mid lumbar spine are noted. Included portions of the lung bases are clear. IMPRESSION: 1. No extraosseous calcification is seen corresponding to right renal calculus seen on previous CT. This may be on the basis of interval passage. Alternately, this stone may be inconspicuous on radiographs. 2. Nonobstructive small bowel gas pattern. Dictated by: Dictated on workstation # [id number]
== END ==
LOC: RAD 15:25
PROVIDERS: ATTEND Urology
DX: N20.0 Calculus of kidney (principal)
CPT/HCPCS: 74018

== ENCOUNTER 2021-01-02 07:23 | Day surgery (SDC) | payer MEDICARE, OTHER ==
[2021-01-02] VITALS (10 sets, daily range): BP systolic 97–130; BP diastolic 60–77
[~2021-01-02] VITALS: Ht 198 cm; Wt 129.5 kg
[2021-01-02] MEDS ORDERED: WATER (STERILE) FOR INJECTION 10 ML ONE (08:11)
[2021-01-02] MEDS ORDERED: cefTRIAXone 1,000 MG VIAL ONE (08:11)
--- NOTE | 2021-01-02 08:25 | Progress Note-Pre Operative ---
Pre-Operative Progress Note H&P Reviewed The H&P was reviewed, patient examined and no changes noted. Date Seen by Provider: Jan 02, 2021 Time Seen by Provider: 08:25 Date H&P Reviewed: Jan 02, 2021 Time H&P Reviewed: 08:25 Pre-Operative Diagnosis: RT RENAL STONE HEATHER VIEYRA MD Jan 02, 2021 08:25
[2021-01-02] MEDS ORDERED: LACTATED RINGERS 1,000 ML IV PRN (08:30)
[2021-01-02] MEDS ORDERED: MIDAZOLAM 2 MG/2 ML (VERSED) VIAL ONE (09:09)
[2021-01-02] MEDS ORDERED: LIDOCAINE PF 2% 5 ML (XYLOCAINE) VIAL ONE (09:09)
[2021-01-02] MEDS ORDERED: SEVOFLURANE (ULTANE) 15 ML INHAL SOLN ONE (09:09)
[2021-01-02] MEDS ORDERED: proPOfol 200 MG/20 ML (DIPRIVAN) VIAL IV ONE (09:09)
[2021-01-02] MEDS ORDERED: fentaNYL INJ 100 MCG/2 ML AMP ONE (09:09)
[2021-01-02] MEDS ORDERED: ONDANSETRON 4 MG/2 ML (SDV) Z0FRAN ONE (09:09)
[2021-01-02] MEDS ORDERED: SILD20TA14 PO (09:49)
[2021-01-02] MEDS ORDERED: DOXE25CA46 PO (09:50)
[2021-01-02] MEDS ORDERED: BACL10TA PO (09:51)
[2021-01-02] MEDS ORDERED: FAMO-275 PO (09:52)
--- NOTE | 2021-01-02 10:20 | Diagnostic Imaging Report ---
INDICATION: Status post lithotripsy COMPARISON: 12/21/2020 TECHNIQUE: Single radiograph of the abdomen was obtained dated 01/02/2021 FINDINGS: 7 mm very indistinct ovoid hyperdensity is noted overlying right renal shadow. This is not definitively calcified density. No additional calcifications overlying the renal shadows or the expected course of bilateral ureters. Postsurgical changes within the mid lumbar spine. Nonobstructive bowel gas pattern. No acute fracture. No suspicious radiopaque foreign body. IMPRESSION: Very ill-defined 7 mm hyperdensity overlying the right renal shadow. This could relate to previously noted calculus within the right renal pelvis. However, this could also simply relate to overlying enteric contents. Additional stable changes, including postsurgical changes within the lumbar spine. Dictated by: Dictated on workstation # [id number]
--- NOTE | 2021-01-02 10:51 | Progress Note-Post Operative ---
Post-Operative Progess Note Surgeon (s)/Research Scholar (s) Surgeon HEATHER VIEYRA MD Research Scholar: NONE Pre-Operative Diagnosis RT RENAL STONE Post-Operative Diagnosis SAME Procedure & Operative Findings Date of Procedure 01/02/21 Procedure Performed/Findings CYSTOSCOPY, RT RETROGRADE UROGRAM, AND RT ESWL Anesthesia Type GENERAL Estimated Blood Loss Estimated blood loss (mL): NONE Specimens/Packing Specimens Removed NONE Packing: NONE HEATHER VIEYRA MD Jan 02, 2021 10:51
--- NOTE | 2021-01-02 10:59 | Discharge Inst-Urology ---
Discharge Inst-Urology Reconcile Patient Problems Problems Reviewed?: Yes Final Diagnosis RT RENAL STONE Patient Instructions/Follow Up Plan/Assessment/Instructions Please make appointment to been seen in office next or Friday 15, KUB prior to it KUB on way home Post ESWL instructions Increase oral fluids for 48 hours and then as needed. In 72 hours, if no bleeding, may resume Eliquis, hold if starts bleeding Diet and Activity as tolerated. If questions or concerns contact your physician Or seek help at emergency department. HEATHER VIEYRA MD Jan 02, 2021 10:59
[2021-01-02] MEDS ORDERED: KETOROLAC 30 MG/ML VIAL ONE (11:18)
[2021-01-02] MEDS ORDERED: FUROSEMIDE 40 MG/4 ML INJ (LASIX) ONE (11:18)
[2021-01-02] MEDS ORDERED: ONDANSETRON 4 MG/2 ML (SDV) Z0FRAN IVP PRN (11:30)
[2021-01-02] MEDS ORDERED: HYDROmorphone 2 MG/ML VIAL (DILAUDID) IV ONE (11:30)
--- NOTE | 2021-01-02 11:42 | Anesthesia-General Post-Op ---
General Patient Condition Mental Status/LOC: Same as Preop Cardiovascular: Satisfactory Nausea/Vomiting: Absent Respiratory: Satisfactory Pain: Controlled Complications: Absent Post Op Complications Complications None Follow Up Care/Instructions Patient Instructions None needed. Anesthesia/Patient Condition Patient Condition Patient is doing well, no complaints, stable vital signs, no apparent adverse anesthesia problems. No complications reported per nursing. D/C home per [facility] Criteria: Yes KOBI CARL CRNA Jan 02, 2021 11:42
[2021-01-02] MEDS ORDERED: NITR-65 PO (13:14)
[2021-01-02] MEDS ORDERED: TMSL.4C PO (13:15)
[2021-01-02] MEDS ORDERED: KETO10TA PO (13:18)
[2021-01-02] MEDS ORDERED: PHEN-640 PO (13:19)
--- NOTE | 2021-01-02 13:54 | Diagnostic Imaging Report ---
INDICATION: Status post lithotripsy. COMPARISON: Earlier same day at 8:54 AM. FINDINGS: The 6 mm density previously noted to the right of the L2-L3 vertebral level is no longer visualized. Bowel gas now overlies this region. No new abnormal soft tissue mineralizations. Stable postoperative changes of posterior lumbar interbody fusion with instrumentation at L2-L3. IMPRESSION: The previously noted right renal stone is no longer visualized radiographically. Dictated by: Dictated on workstation # [id number]
--- NOTE | 2021-01-02 16:53 | OPERATIVE REPORT ---
DATE OF SERVICE: 01/02/2021 PREOPERATIVE DIAGNOSIS: Right renal pelvic stone. POSTOPERATIVE DIAGNOSIS: Right renal pelvic stone. OPERATION PERFORMED: Cystoscopy with right retrograde ureterogram and right ESWL. SURGEON: Jam Vieyra MD ANESTHESIA: General. COMPLICATIONS: None. DESCRIPTION OF PROCEDURE: Under satisfactory general anesthesia, the patient first in supine position on the ESWL table, we tried to visualize the stone by fluoroscopy, but again we are unable to do so may be because of lack of calcification as well as the size of the patient. This was not visualized preoperatively with KUB, so we went ahead and put the patient in the lithotomy position, genitalia were prepped and draped in the usual sterile fashion. Cystoscope was introduced under vision. There was a mild meatal stenosis that was easily dilated from 20 to 26-Khmer to admit a 23-Khmer cystoscope. The rest of the urethra was normal. The prostate was mildly enlarged with bladder neck obstruction mildly, bladder was entered with mild trabeculations. Ureteric orifices normal. Clear efflux, sluggish on the right side. No foreign body stone or bladder tumor visualized. Using the foroblique lens, I passed a 6-Khmer straight tip ureteral catheter easily all the way up to the renal pelvis visualized by fluoroscopy, injected contrast and we could see the filling defect of the stone in the pelvis of the kidney and monitor that injection of contrast through the procedure after removing the cystoscope and taped the catheter to the side. We went ahead and performed ESWL at kV of 6. There was excellent fragmentation. We could hardly see the filling defect anymore and filling of the pelvis nicely with the contrast. A total of 3000 shocks were delivered. The patient received 30 mg of Toradol and 40 mg of Lasix IV at the end of the procedure. He tolerated the procedure and anesthesia well and was sent to recovery room in stable condition. At the end of the procedure, we removed the ureteral catheter. Job ID: [id number] DocumentID: [id number] Dictated Date: 01/02/2021 11:15:51 Mechanism Assembler Date: 01/02/2021 16:53:23 Dictated By: JAM VIEYRA MD
== END 2021-01-02 14:00 | disposition home or self-care (01) ==
LOC: SDC 07:23
PROVIDERS: ATTEND Urology
DX: N20.0 Calculus of kidney (principal); N40.1 Benign prostatic hyperplasia with lower urinary tract symptoms; N13.8 Other obstructive and reflux uropathy; I10 Essential (primary) hypertension; E07.9 Disorder of thyroid, unspecified; E66.9 Obesity, unspecified; Z79.82 Long term (current) use of aspirin; Z79.899 Other long term (current) drug therapy; Z79.890 Hormone replacement therapy; Z68.33 Body mass index [BMI] 33.0-33.9, adult; Z96.651 Presence of right artificial knee joint; Z79.891 Long term (current) use of opiate analgesic; Z11.2 Encounter for screening for other bacterial diseases
CPT/HCPCS: 74018; 87081

== ENCOUNTER → 2021-01-10 | Outpatient (CLI) | payer MEDICARE, OTHER ==
[~2021-01-10] MED LIST changes: +DOXE25CA46 PO; +FAMO-275 PO; +KETO10TA PO; +NITR-65 PO; +PHEN-640 PO; +SILD20TA14 PO; +TMSL.4C PO
--- NOTE | 2021-01-10 15:39 | Diagnostic Imaging Report ---
INDICATION: Follow-up stones. TIME OF EXAM: 3:06 PM. COMPARISON: Correlation is made with prior radiograph from 01/02/2021. No definite radiopaque urinary tract calculi are identified. Bowel gas does obscure some of the urinary tracts. Postop changes of upper lumbar posterior instrumented fusion are again noted. IMPRESSION: No definite radiopaque urinary tract calculi are identified. Dictated by: Dictated on workstation # [id number]
== END ==
LOC: RAD 14:49
PROVIDERS: ATTEND Urology
DX: Z09 Encounter for follow-up examination after completed treatment for conditions other than malignant neoplasm (principal); Z87.442 Personal history of urinary calculi; Z98.890 Other specified postprocedural states
CPT/HCPCS: 74018

== ENCOUNTER 2021-03-16 14:45 | Outpatient (RCR) | payer MEDICARE, OTHER | END 2021-03-30 | disposition home or self-care (01) | PROVIDERS: ATTEND Family Medicine | DX: R53.1 Weakness (principal); R26.89 Other abnormalities of gait and mobility; W19.XXXA Unspecified fall, initial encounter ==

== ENCOUNTER → 2021-03-16 | Outpatient (CLI) | payer MEDICARE, OTHER ==
[~2021-03-16] MED LIST changes: -LISI-729 PO; +LISI5TAB20 PO
--- NOTE | 2021-03-16 11:38 | Diagnostic Imaging Report ---
Indication: Cough for 2 weeks. TIME OF EXAM: 11:19 AM Correlation is made with prior chest from 02/10/2019. Heart size stable. Calcified nodule left mid lung is stable. No infiltrates are seen. Pulmonary vascularity is normal. No effusion or pneumothorax is identified. Postoperative changes lower cervical spine are noted. IMPRESSION: No acute cardiopulmonary process is detected. Dictated by: Dictated on workstation # [id number]
== END ==
LOC: RAD 10:46
PROVIDERS: ATTEND Family Medicine
DX: R05.9 Cough, unspecified (principal)
CPT/HCPCS: 71046